=== PATIENT | male | born 1985 | race Caucasian/White ===

== ENCOUNTER 2023-10-21 15:05 | Outpatient (AMB) | payer OTHER, SELFPAY ==
[2023-10-21 15:06] VITALS: BP 122/76; PULSE 70; O2SAT 97; BMI 37.6
--- NOTE | 2023-10-21 15:06 | MHC.PC.OV ---
Vital Signs 10/21/23 15:06 Height 5 ft 9 in Weight 254 lb 8 oz BMI 37.6 BP 122/76 Blood Pressure Location Lt brachial Position Sitting Pulse 70 Pulse Source Pulse Oximeter Pulse Oximetry (%) 97 Oxygen Delivery Method Room Air Intake Visit Reasons: Medication Follow Up Incident Response Manager Required: No Flight Physician: Not Required per policy Accompanied by: Self / Same As Patient Allergies amoxicillin [AMOXICILLIN] Allergy (Unknown, Verified 10/21/23 15:36) HIVES azithromycin Allergy (Unknown, Verified 10/21/23 15:36) hives penicillin V Allergy (Unknown, Verified 10/21/23 15:36) hives Medication List - Last Reconciled 10/21/23 by Angelito Bustillo PA-C lorazepam 0.5 mg PO DAILY 30 days trazodone 100 mg PO DAILY 30 days triamcinolone acetonide 0.1% 1 appl topical BID 15 days Tobacco use date assessed: 10/21/23 Dental Screening Dental Screen Date: 10/21/23 Did you have a dental visit in the last 12 months?: Yes Did you have a dental problem in the last 6 months where you did not have access to dental care?: No Was dental information given to patient?: Patient has dentist HPI Medication Follow Up HPI Details Patient is a 38-year-old male here today for a follow-up visit. Patient has a past medical history significant for generalized anxiety disorder, obesity and insomnia. .. Generalized anxiety disorder: He is now speaking with his mental health therapist on a regular basis. He has stopped using SSRI therapy as it was not as effective. He has drastically reduced his alcohol intake and has really helped him with his sleep and anxiety. He is using trazodone 50-100 mg at night with good effect. He has been reduced his benzodiazepine frequency of use to only as p.r.n.. He reports he has not had a panic attack and nearly 3 months. He does inform me he has a 2[address] on the [address] [facility] Surgical History No pertinent past surgical history Family History Father No problems noted. Mother Mental health disorder Sister Substance use disorder Mental health disorder Maternal Grandmother Mental health disorder Maternal Grandfather Mental health disorder Social History Housing: House Alcohol intake: current Alcohol intake frequency: a few times a week Patient Tobacco Use Status: Former Tobacco user Quit Date: 15 years ago e-Cigarette/Vaping Use: Never Used service: No Current occupational status: employed Current occupation: [employer] Cognitive needs: No Hearing needs: No Vision needs: No Questionnaire PHQ-9 Over the last 2 weeks, how often have you been bothered by any of the following problems? 1. Little interest or pleasure in doing things: not at all 2. Feeling down, depressed, or hopeless: not at all 3. Trouble falling or staying asleep, or sleeping too much: not at all 4. Feeling tired or having little energy: not at all 5. Poor appetite or overeating: not at all 6. Feeling bad about yourself - or that you are a failure or have let yourself or your family down: not at all 7. Trouble concentrating on things, such as reading the newspaper or watching television: not at all 8. Moving or speaking so slowly that other people could have noticed. Or the opposite - being so fidgety or restless that you have been moving around a lot more than usual: not at all 9. Thoughts that you would be better off or of hurting yourself in some way: not at all Total score: 0 Depression Screening Interpretation: Negative Depression Screening Done: Yes 59820 - PHQ-9 Billing: Yes Source: Developed by Drs. Ahmet Bañuelos, Parvin Poe, Burak Lizarraga and colleagues, with an educational ugo from [employer]. Thrive Questionnaire Date Thrive assessed: 10/21/23 I am a: Patient What is your living situation today?: I have a steady place to live Within the past 12 months, did the food you bought not last and you didn't have the money to get more?: Never true Within the past 12 months, did you worry whether your food would run out before you got money to buy more?: Never true Do you have trouble paying for medicines?: No Do you have trouble getting transportation to medical appointments?: No Do you have trouble paying your heating and electricity bill?: No Do you have trouble taking care of your child, family member or friend?: No Do you have trouble with day-to-day activities such as bathing, preparing meals, shopping, managing finances, etc.?: No Are you currently unemployed and looking for a job?: No Are you interested in more education?: No Please select the resources that you would like help with: None AUDIT C Alcohol Use Questionnaire (AUDIT-C) 1. How often do you have a drink containing alcohol?: 2-3 times a week 2. How many drinks containing alcohol do you have on a typical day when you are drinking?: 3 or 4 3. How often do you have six or more drinks on one occasion?: Less than monthly Total Score: 5 ANGI-7 AMB Questionnaire ANGI-7 Date ANGI - 7 assessed: 10/21/23 Feeling nervous, anxious, or on edge: 0 = Not at all Not being able to stop or control worryin = Not at all Worrying too much about different things: 0 = Not at all Trouble relaxin = Not at all Being so restless that it is hard to sit still: 0 = Not at all Becoming easily annoyed or irritable: 0 = Not at all Feeling afraid as if something awful might happen: 0 = Not at all Total ANGI-7 score (0-4 normal; 5-9 mild; 10-14 moderate; 15-21 severe): 0 Source: Developed by Drs. Ahmet Bañuelos, Parvin Poe, Burak Lizarraga and colleagues, with an educational ugo from [employer]. ANGI-7 Assessment Billing ANGI-7 Assessment Tool: ANGI-7 Assessment 81627 Review of Systems Const Denies headache(s) Eyes Denies loss of vision ENT Denies vertigo, Denies dizziness, Denies headache(s) and Denies sore throat Card Denies chest pain, Denies leg edema and Denies lightheadedness Resp Denies cough, Denies hemoptysis and Denies wheezing GI Denies abdominal pain, Denies melena, Denies constipation, Denies diarrhea and Denies vomiting Denies dysuria, Denies urinary frequency and Denies urinary urgency Musc Denies arthralgias, Denies joint swelling, Denies numbness and Denies tingling Neuro Denies Abnormal speech present, Denies behavioral changes, Denies vertigo, Denies dizziness, Denies headache(s), Denies loss of vision, Denies memory loss, Denies numbness and Denies tingling Psych Reports anxiety, Denies behavioral changes, Reports depression, Denies memory loss and Reports panic attacks Ronnie/Lymph Denies easy bleeding and Denies easy bruising Aller/Immun Denies wheezing Physical exam (Primary Care) Vital Signs: Last Vital Signs Pulse 70 10/21/23 15:06 BP 122/76 10/21/23 15:06 Pulse Ox 97 10/21/23 15:06 Oxygen Delivery Method Room Air 10/21/23 15:06 BMI result Body Mass Index 37.6 BMI Assessment/Plan discussion: High Tobacco/Smoking Status: Tobacco use Status Tobacco use date assessed 10/21/23 10/21/23 15:08 Patient Tobacco Use Status Former Tobacco user 10/21/23 15:08 e-Cigarette/Vaping Use Never Used 10/21/23 15:08 PHQ-9: PHQ-9 Score PHQ-9: Total score 0 10/21/23 15:40 Depression Screening Interpretation: Negative Thrive Assessment: Date of Thrive Assessment Date Thrive assessed 10/21/23 10/21/23 15:08 Const Other: Obese General: no acute distress, alert and awake Nutritional Appearance: well nourished Orientation/consciousness: oriented to person, oriented to place and oriented to time HENMT Ears: TM's normal bilaterally General nose exam: Normal nasal mucous membranes and turbinates present Eyes Conjunctivae: conjunctivae normal Sclerae: sclerae normal Pupils: Equal, round and reactive pupils present Neck Neck: Yes no lymphadenopathy and Yes no JVD Thyroid: Thyroid normal Carotids: no bruits Resp Effort & Inspection: normal respiratory effort and not tachypneic Auscultation: no crackles, no rales, no rhonchi and no wheezes Cardio Rate: regular rate Rhythm: regular rhythm Heart sounds: no murmurs and normal S1 and S2 GI Palpation (GI): Soft to palpation, nontender, no hepatomegaly and no splenomegaly Auscultation: normal bowel sounds Skin General skin exam: no rashes or lesions noted and dry skin Neuro General: oriented to person, oriented to place and oriented to time Cranial nerves: Yes Equal, round and reactive pupils present Speech: No Abnormal speech present Gait exam (Neuro): Normal gait present Motor exam (neuro): no tremor noted Extrem Right upper extremity: full ROM Left upper extremity: full ROM Right lower extremity: full ROM; no edema Left lower extremity: full ROM; no edema Psych Mental Status: mental status grossly normal Speech and movement: Normal speech and movement present Affect: normal affect Attitude: cooperative Thought process: Normal thought process present Assessment and Plan Assessment & Plan (1) Insomnia: Code(s): G47.00 - Insomnia, unspecified Qualifiers: Insomnia type: primary Qualified Code(s): F51.01 - Primary insomnia Plan: Patient reports he has made some lifestyle changes and has stopped drinking alcohol reports his sleeping has been bit better. Does use trazodone 50-100 mg at night with decent affect. (2) ANGI (generalized anxiety disorder): Code(s): F41.1 - Generalized anxiety disorder Plan: Patient has an existing condition of generalized anxiety disorder which has been a chronic issue. He is speaking with a mental health therapist on a regular basis now/. He has discontinued SSRI therapy. Continues with the use of lorazepam on a p.r.n. basis for panic attacks. (3) Obese: Code(s): E66.9 - Obesity, unspecified Qualifiers: Body mass index: BMI 36.0-36.9 Obesity classification: adult class 2 (BMI 35 - 39.9) Obesity type: due to excess calories Serious obesity comorbidity presence: without serious comorbidity Qualified Code(s): E66.09 - Other obesity due to excess calories; Z68.36 - Body mass index [BMI] 36.0-36.9, adult Plan: Patient does understand his BMI is over 35 and will work on being more physically active and adapting to better eating habits to reduce his weight (4) Screening for diabetes mellitus (DM): Code(s): Z13.1 - Encounter for screening for diabetes mellitus Orders: Orders Comprehensive Vansant. Panel Fast 10/21/23 Z13.1 - Encounter for screening for diabetes mellitus Medications: New trazodone 100 mg (2 x 50 mg) PO BEDTIME 30 days 60 tabs 3RF F51.01 - Primary insomnia Changed From lorazepam 0.5 mg PO DAILY 30 days 30 tabs 3RF anxiety F41.1 - Generalized anxiety disorder To lorazepam 0.5 mg PO DAILY 14 days 14 tabs 1RF anxiety F41.1 - Generalized anxiety disorder Discontinued trazodone Discontinued Reason: Doctor's Order 100 mg PO DAILY 30 days 30 tabs 3RF G47.00 - Insomnia, unspecified Coding Level of Care Code Est Pt Level 4 (73850) Diagnoses Primary insomnia F51.01 Insomnia type: primary ANGI (generalized anxiety disorder) F41.1 Class 2 obesity due to excess calories without serious comorbidity with body mass index (BMI) of 36.0 to 36.9 in adult E66.09; Z68.36 Body mass index: BMI 36.0-36.9 Obesity classification: adult class 2 (BMI 35 - 39.9) Obesity type: due to excess calories Serious obesity comorbidity presence: without serious comorbidity Screening for diabetes mellitus (DM) Z13.1 Additional Codes ANGI-7 Assessment Billing - ANGI-7 Assessment Tool: ANGI-7 Assessment 01652 ([id number])
== END 2023-10-21 15:54 | disposition home or self-care (01) ==
PROVIDERS: PCP Physician Assistant; Visit Provider Physician Assistant
DX: F51.01 Primary insomnia (principal); F41.1 Generalized anxiety disorder; E66.09 Other obesity due to excess calories; Z68.36 Body mass index [BMI] 36.0-36.9, adult; Z13.1 Encounter for screening for diabetes mellitus
CPT/HCPCS: 99214

== ENCOUNTER 2024-10-05 13:38 | Outpatient (AMB) | payer BC, SELFPAY ==
[2024-10-05 13:40] VITALS: BP 110/76; PULSE 84; O2SAT 97; BMI 38.9
--- NOTE | 2024-10-05 13:40 | MHC.PC.OV ---
Vital Signs 10/05/24 13:40 Height 5 ft 9 in Weight 263 lb 6 oz BMI 38.9 BP 110/76 Blood Pressure Location Lt brachial Position Sitting Pulse 84 Pulse Source Pulse Oximeter Pulse Oximetry (%) 97 Oxygen Delivery Method Room Air Intake Visit Reasons: PE Intake Note: Patient is here today for a physical. [employer] Consultant Required: No Accompanied by: Self / Same As Patient Allergies amoxicillin [AMOXICILLIN] Allergy (Unknown, Verified 10/05/24 13:48) HIVES azithromycin Allergy (Unknown, Verified 10/05/24 13:48) hives penicillin V Allergy (Unknown, Verified 10/05/24 13:48) hives Medication List - Last Reconciled 10/05/24 by Angelito Bustillo PA-C citalopram (Celexa) 20 mg PO DAILY 90 days lorazepam 0.5 mg PO DAILY PRN 14 days trazodone 100 mg (2 x 50 mg) PO BEDTIME 30 days triamcinolone acetonide 0.1% 1 appl topical BID 15 days Tobacco use date assessed: 10/21/23 Dental Screening Dental Screen Date: 10/21/23 HPI PE HPI Details Patient is a 39-year-old male here today for routine annual physical. Patient has a past medical history significant for generalized anxiety disorder, obesity and insomnia. .. Generalized anxiety disorder: He is now speaking with his mental health therapist on a regular basis. He has stopped using SSRI therapy as it was not as effective. He has drastically reduced his alcohol intake and has really helped him with his sleep and anxiety. He is using trazodone 50-100 mg at night with good effect. He has been reduced his benzodiazepine frequency of use to only as p.r.n.. He reports he has not had a panic attack in quite some time .. Obstructive sleep apnea: Uses CPAP machine nightly basis with decent affect. He is interested in trying a weight loss injectable medication to help him lose weight in order to control his obstructive sleep apnea. .. Class 2 obesity: Has unfortunately gained weight since last office visit. He does understand his BMI is over 35 and will work on being more physically active and adapting to better eating habits to reduce his weight. He mentions he is interested in seeing a urologist for vasectomy. Vaccines: Up-to-date with COVID vaccine, tetanus vaccine, considering flu vaccine [facility] Surgical History No pertinent past surgical history Family History Father No problems noted. Mother Mental health disorder Sister Substance use disorder Mental health disorder Maternal Grandmother Mental health disorder Maternal Grandfather Mental health disorder Social History (Updated 10/05/24 @ 13:52 by Angelito Bustillo PA-C) Housing: House Alcohol intake: current Alcohol intake frequency: a few times a week Patient Tobacco Use Status: Former Tobacco user e-Cigarette/Vaping Use: Never Used service: No Current occupational status: employed Current occupation: [employer] Cognitive needs: No Hearing needs: No Vision needs: No Questionnaire PHQ-9 Over the last 2 weeks, how often have you been bothered by any of the following problems? 1. Little interest or pleasure in doing things: not at all 2. Feeling down, depressed, or hopeless: not at all 3. Trouble falling or staying asleep, or sleeping too much: not at all 4. Feeling tired or having little energy: not at all 5. Poor appetite or overeating: not at all 6. Feeling bad about yourself - or that you are a failure or have let yourself or your family down: not at all 7. Trouble concentrating on things, such as reading the newspaper or watching television: not at all 8. Moving or speaking so slowly that other people could have noticed. Or the opposite - being so fidgety or restless that you have been moving around a lot more than usual: not at all 9. Thoughts that you would be better off or of hurting yourself in some way: not at all Total score: 0 Depression Screening Interpretation: Negative Depression Screening Done: Yes 47788 - PHQ-9 Billing: Yes Source: Developed by Drs. Ahmet Bañuelos, Parvin Poe, Burak Lizarraga and colleagues, with an educational ugo from [employer]. Thrive Questionnaire Date Thrive assessed: 10/21/23 ANGI-7 AMB Questionnaire ANGI-7 Date ANGI - 7 assessed: 10/21/23 Source: Developed by Drs. Ahmet Bañuelos, Burak Barreto and colleagues, with an educational ugo from [employer]. Review of Systems Const Denies body aches, Denies chills, Denies excessive sweating, Denies fatigue, Denies fever(s) and Denies headache(s) Eyes Denies blurry vision ENT Denies dysphagia, Denies vertigo, Denies dizziness, Denies headache(s), Denies hearing loss and Denies tinnitus Card Denies chest pain, Denies chest pain with activity, Denies syncope, Denies irregular heart rhythm and Denies dyspnea Resp Denies chest congestion, Denies cough, Denies hemoptysis, Denies dyspnea and Denies wheezing GI Denies abdominal pain, Denies melena, Denies hematochezia, Denies coffee ground emesis, Denies dysphagia, Denies diarrhea, Denies nausea and Denies vomiting Denies difficulty urinating, Denies dysuria, Denies urinary frequency, Denies urinary hesitancy and Denies urinary urgency Musc Denies arthralgias, Denies limited range of motion, Denies muscle cramps and Denies muscle weakness Skin/Breast Denies rash and Denies skin ulcer Neuro Denies Abnormal speech present, Denies confusion, Denies vertigo, Denies dizziness, Denies syncope, Denies headache(s), Denies memory loss and Denies seizure-like activity Psych Denies anxiety, Denies confusion, Denies depression, Denies memory loss, Denies panic attacks and Denies paranoia Endo Denies excessive sweating, Denies fatigue, Denies flushing, Denies polydipsia and Denies polyuria Aller/Immun Denies wheezing Physical exam (Primary Care) Vital Signs: Last Vital Signs Pulse 84 10/05/24 13:40 BP 110/76 10/05/24 13:40 Pulse Ox 97 10/05/24 13:40 Oxygen Delivery Method Room Air 10/05/24 13:40 BMI result Body Mass Index 38.9 BMI Assessment/Plan discussion: High BMI High, discussed plan: lifestyle, weight reduction, dietary and physical activity Tobacco/Smoking Status: Tobacco use Status Tobacco use date assessed 10/21/23 10/05/24 13:45 Patient Tobacco Use Status Former Tobacco user 10/05/24 13:45 e-Cigarette/Vaping Use Never Used 10/05/24 13:45 PHQ-9: PHQ-9 Score PHQ-9: Total score 0 10/05/24 13:45 Depression Screening Interpretation: Negative Thrive Assessment: Date of Thrive Assessment Date Thrive assessed 10/21/23 10/05/24 13:45 Const Other: Obese General: cooperative, comfortable, no acute distress, alert and awake; No confusion Orientation/consciousness: oriented to person, oriented to place, patient oriented x3 and No confusion HENMT Other: ENLARGED TONSILS, 4+ 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 Head: Yes normocephalic Ears: external ears normal and TM's normal bilaterally Face and sinus: No sinus tenderness Mouth: Normal oral and palatal mucosa present and tongue normal Teeth and gingiva: dentition normal and gingiva normal Throat: Yes posterior oropharynx normal, Yes tonsils normal and Yes uvula midline Eyes Conjunctivae: conjunctivae normal Sclerae: sclerae normal Pupils: Equal, round and reactive pupils present EOM: EOMs intact bilaterally Direct Ophthalmoscopy: No no photophobia Neck Neck: Yes no lymphadenopathy, No tender and Yes no JVD Thyroid: Thyroid normal Carotids: no bruits Chest Chest palpation & inspection: no tenderness Resp Effort & Inspection: normal respiratory effort, no audible wheezes, not labored and no stridor Auscultation: no crackles, no rales, no rhonchi and no wheezes Cardio Jugular venous distension: no JVD Rate: regular rate, not bradycardic and not tachycardic Rhythm: regular rhythm Bruits: no carotid bruits Peripheral pulses: Peripheral pulses 2+ throughout GI Inspection: Yes normal to inspection, No abdominal wall ecchymosis and No visible herniation Palpation (GI): Soft to palpation, nontender, no guarding, not rigid and No hepatosplenomegaly present Auscultation: normoactive bowel sounds General: Yes no CVA tenderness Back/Spine/Pelvis Back: no CVA tenderness and No back tenderness Cervical Spine: cervical ROM normal Thoracic/Lumbar Spine: thoracic and lumbar spine normal to inspection, straight leg raise negative bilaterally, No thoraco-lumbar ROM limited and No lumbar spinal tenderness Skin Lesions: no lesions Rashes: no rashes Wounds: no wounds Neuro General: oriented to person, oriented to place, patient oriented x3, CN's II-XI intact bilaterally and No confusion Cranial nerves: Yes Equal, round and reactive pupils present and Yes Normal accommodation reflex present Cognition (Neuro): normal cognition Speech: No Abnormal speech present Gait exam (Neuro): Normal gait present Motor exam (neuro): 5/5 motor strength present throughout Extrem Right upper extremity: full ROM; no cyanosis Left upper extremity: full ROM; no cyanosis Right lower extremity: no edema Left lower extremity: no edema Psych Appearance: grossly normal Mental Status: mental status grossly normal Affect: normal affect Attitude: cooperative Thought process: Normal thought process present Office Procedures Flu Questionnaire Does the patient have a severe egg allergy?: No Does the patient have severe life threatening allergies?: No Does the patient have a fever or illness today?: No Has the patient ever had Guillain-[place] Syndrome?: No Has the patient ever had any past reaction to a flu shot?: No Immunizations Fluarix Triv 2214-2318 (PF) 45 mcg (15 mcg x 3)/0.5 mL IM syringe Performing Provider: Angelito Bustillo PA-C [facility] Administered by: COLIN Platt on 10/05/24 13:46 Dose Route Admin Location Dispensed Lot Number Expiration Date [facility] [employer] 0.5 mL IM Right Deltoid 0.5 mL [id number] 04/11/25 16225-231-22 Pounce VIS Given Date VIS Provided VIS Publication Date 10/05/24 Single Vaccine 21 Eligibility Eligibility Date Funding Source Not [facility] Eligible 10/05/24 Private Coding Level of Care Code Est Pt Prev Care 18-39y(47299) Diagnoses Annual physical exam Z00.00 ANGI (generalized anxiety disorder) F41.1 Class 2 obesity E66.812 Encounter for vasectomy counseling Z30.09 NUVIA (obstructive sleep apnea) G47.33 Enlarged tonsils and adenoids J35.3 Additional Codes PHQ-9 - 33295 - PHQ-9 Billing: Yes ([id number]) Assessment & Plan Assessment & Plan (1) Annual physical exam: Code(s): Z00.00 - Encounter for general adult medical examination without abnormal findings Category: Medical Plan: As per HPI (2) ANGI (generalized anxiety disorder): Code(s): F41.1 - Generalized anxiety disorder Category: Medical Plan: Patient reports his anxiety is very well controlled with current dose of Celexa and p.r.n. use of his lorazepam 0.5 mg. He usually uses lorazepam at night to help him sleep though has not had any panic attacks in quite some time. He now is working in a different job to which he enjoys as well. (3) Class 2 obesity: Code(s): E66.812 - Obesity, class 2 Category: Medical Plan: Patient does understand his BMI is over 35 and will work on being more physically active and adapting to better eating habits to reduce his weight. Even with physical activity he has not been able to lose much weight. He is interested in starting a GLP 1 to help him lose weight and perhaps control his obstructive sleep apnea though will give some more thought to this (4) Encounter for vasectomy counseling: Code(s): Z30.09 - Encounter for other general counseling and advice on contraception Category: Medical Plan: Patient has had 2 children. He reports his had traumatic experience having their 2nd child. He is interested in having an vasectomy. (5) NUVIA (obstructive sleep apnea): Code(s): G47.33 - Obstructive sleep apnea (adult) (pediatric) Category: Medical Plan: Patient continues to use CPAP on a nightly basis. Fortunately has not been able to lose much weight. He wonders if his enlarged tonsils are the reason for his obstructive sleep apnea. He is interested in seeing ENT surgeon for evaluation. (6) Enlarged tonsils and adenoids: Code(s): J35.3 - Hypertrophy of tonsils with hypertrophy of adenoids Category: Medical Plan: As above Orders: Orders Influenza [id number] Immunization Today Z23 - Encounter for immunization Lipid Panel Today E66.812 - Obesity, class 2 Complete Blood Count no Diff Today Z13.1 - Encounter for screening for diabetes mellitus Referrals Urology Referral Z30.09 - Encounter for other general counseling and advice on contraception Ear/Nose/Throat Referral J35.3 - Hypertrophy of tonsils with hypertrophy of adenoids
--- OUTSIDE RECORDS SUMMARY | 2024-10-05 13:40 | XMS_ITS | Data Portability ---
Author Organization [facility] Address [address] [place] [address] Assessment No assessment recorded. Plan of Treatment Reminders Order Date Submit Date Provider Last Modified By Organization Details Last Modified Time Details Appointments None recorded. Lab rapid strep group A, throat 2022 023 [email or web address] _gracie sandoval, [address] [place] [address], [phone], 10:03:30 Referral None recorded. Procedures None recorded. Surgeries None recorded. Imaging None recorded. Medication Orders clindamycin HCl 300 mg capsule 2022 023 [email or web address] [id number], [address] [place], [address], 10:05:59 Patient TargetsNo targets recorded. Patient Instructions Encounter Date Encounter Id Patient Instructions Last Modified By Organization Details Last Modified Time 02/17/2023 [id number] strep throat: care instructions eal Not available 02/17/2023 10:03:45 Reason for Referral None Reported. Results Created Date Observation Date Name Description Value Unit Range Abnormal Flag Note LastModifiedBy Organization Detail LastModifiedTime 02/18/2002/17/2023 rapid strep group A, throa t Unknown Analyte Normal = Negati ve Not Available _bertha [address], [address], 02/17/2023 09:33:50 02/18/2002/17/2023 rapid strep group A, throa t Unknown Analyte positi ve Not Available [facility] [address] [facility], [place], [address], 02/17/2023 09:33:50 Result Notes None recorded. Problems Name Problem SNOMED Code Status Onset Date Resolution Date Notes Provider Name and Address Organization Details Recorded Time Insomnia 512990493 Active 023 IRIS COUVERTADDI null, PA - [facility] 3 09:33:04 Anxiety 76654758 Active 023 IRIS COUVERTIER null, PA - [facility] 3 09:33:11 Problem Notes None recorded. Medical Equipment None Reported. Allergies Allergen ID Allergen Name Allergen Category Reaction Reaction Severity Criticality Documentation Date Start Date Code Code System Note Provider Name and Address Organization Details Recorded Time 734187 Medicinal product containin g penicilli n and acting as antibacte rial agent (product) medicatio n Not available Not available Not available 02/17/2023 83979 05 SNOMED IRIS COUVERTIE R null, PA - [facility] 3 09:32:24 333181 amoxicill in medicatio n Not available Not available Not available 02/17/2023 723 RxNorm IRIS COUVERTIE R null, PA - [facility] 3 09:32:31 549246 azithromy [facility] medicatio n Not available Not available Not available 02/17/2023 01330 RxNorm IRIS COUVERTIE R null, PA - [facility] 3 09:40:34 Medications Name Sig Start Date Stop Date Status Note LastModified by Organization Details LastModified Time clindamycin HCl 300 mg capsule Take 1 capsule every 8 hours by oral route for 10 days. 023 active Not Available Not Available Not Avai lable Ativan active Not Available Not Availa ble Not Available trazodone active Not Available Not Susan ilable Not Available Vitals Date Recorded Body height Body mass index (BMI) Body weight Body temperature Respiratory rate Heart rate Oxygen saturation Oxygen saturation in Arterial blood by Pulse oximetry Systolic blood pressure Diastolic blood pressure Provider Name and Address Organization Details Last Updated DateTime 3 177.8 cm 35.9 kg/m2 823426. 09 g 97.8 [degF] 18 /min 99 /min 98 % 98 % 131 mm[Hg] 85 mm[Hg] SOM Monroe PA - [facility] 09:35:01 Social History Question Answer Notes LastModified by Organizat ion Details LastModified Time Tobacco Smoking Status Former Smoker SOM lemus [place] - [facility] 02/17/2023 09:33:39 What Is Your Level Of Alcohol Consumption? Occasional Information not available 02/17/2023 What Is Your Water Source? City Information not available 02/17/2023 What Is Your Heat Source? Other Information not available 02/17/2023 Have You Had Direct Contact, Or Contact During Intimacy, With Monkeypox Rash, Scabs, Or Body Fluids From A Person With Monkeypox? No Information not available 02/17/2023 Do You Use Any Illicit Or Recreational Drugs? No Information not available 02/17/2023 Have You Recently Traveled Abroad? No Information not available 02/17/2023 Sex: Unknown Functional Status None recorded. Mental Status None recorded. Family History Relationship Description Onset Age of this Age Resolved Age Notes LastModified by Organization Details LastModified Time Father No current problems or disability Not available 09:33:21 Mother No current problems or disability Not available 09:33:21 Medical History No medical history recorded. Past Encounters Encounter ID Performer Location Encounter Start Date Encounter Closed Date Diagnosis/Indication Diagnosis SNOMED-CT Code Diagnosis ICD10 Code [id number] [facility] [address] [place] [address] 07/05/2020 10:05:18 07/05/2020 11:32:07 [id number] Lilian Ansari [facility] [address] [place] [address] 02/17/2023 08:14:40 02/17/2023 10:07:13 Streptococcal sore throat 44832455 J02.0 Health Concerns Section Related Observation LastModified by Organization Detai ls LastModified Time None Recorded Concern Status LastModified by Organization Details LastModified Time None Recorded Advance Directives Directive None Recorded Payers Encounter Date Sequence Insurance Name Policy Number Policy Ramon Covered Member ID Ramon Member ID Guarantor Name 07/05/2020 1 [facility] [place] [id number] Guille Young [id number] Guille Young 02/17/2023 1 [facility] [id number] Guille Young [id number] Guille Young Notes Date Note Type Note Provider Name and Address Organization Details Recorded Time 02/17/2023 text/html Sore throatRepor alejandra bypatient.Location:[facility] Severity:moderate Quality:sharp Associated Symptoms:no cough; no sputum production; no shortness of breath; no wheezing; no sinus pain; no vomiting; no nausea; No hoarseness;sore throat;fever Modifying Factors:exposed to Strep household * Lilian Ansari MD [address] [place], [place] [address], [address], [place] - [facility] 02/17/2023 10:06:40
== END 2024-10-05 14:12 | disposition home or self-care (01) ==
PROVIDERS: PCP Physician Assistant; Visit Provider Physician Assistant
DX: Z00.00 Encounter for general adult medical examination without abnormal findings (principal); F41.1 Generalized anxiety disorder; E66.812 Obesity, class 2; Z68.38 Body mass index [BMI] 38.0-38.9, adult; Z30.09 Encounter for other general counseling and advice on contraception; G47.33 Obstructive sleep apnea (adult) (pediatric); J35.3 Hypertrophy of tonsils with hypertrophy of adenoids; Z23 Encounter for immunization

== ENCOUNTER → 2024-10-05 13:38 | Outpatient (BNVA) | payer BC, SELFPAY | PROVIDERS: PCP Physician Assistant; Visit Provider Physician Assistant | DX: Z00.00 Encounter for general adult medical examination without abnormal findings (principal); Z23 Encounter for immunization; F41.1 Generalized anxiety disorder; E66.812 Obesity, class 2; Z68.38 Body mass index [BMI] 38.0-38.9, adult; G47.33 Obstructive sleep apnea (adult) (pediatric); J35.3 Hypertrophy of tonsils with hypertrophy of adenoids; Z79.899 Other long term (current) drug therapy; Z99.89 Dependence on other enabling machines and devices | CPT/HCPCS: 90471; 90656; 96127 ==

== ENCOUNTER 2024-12-09 11:24 | Outpatient (AMB) | payer BC, SELFPAY ==
[2024-12-09 11:42] VITALS: BP 120/82; PULSE 82; TEMP 36.2; O2SAT 95; BMI 37.8
--- NOTE | 2024-12-09 11:42 | MHC.PC.OV ---
Vital Signs 12/09/24 11:42 Height 5 ft 9 in Weight 256 lb 2 oz BMI 37.8 BP 120/82 Blood Pressure Location Lt brachial Position Sitting Pulse 82 Pulse Source Pulse Oximeter Temp 97.1 F Temp Source Temporal Artery Scan Pulse Oximetry (%) 95 Oxygen Delivery Method Room Air Intake Visit Reasons: 6 week f/u Meds Cardiovascular Rn Required: No Accompanied by: Self / Same As Patient Allergies amoxicillin [AMOXICILLIN] Allergy (Unknown, Verified 12/09/24 12:01) HIVES azithromycin Allergy (Unknown, Verified 12/09/24 12:01) hives penicillin V Allergy (Unknown, Verified 12/09/24 12:01) hives Medication List - Last Reconciled 12/09/24 by Angelito Bustillo PA-C citalopram (Celexa) 20 mg PO DAILY 90 days lorazepam 0.5 mg PO DAILY PRN 14 days tirzepatide (weight loss) (Zepbound) 5 mg (0.5 mL) subcut QWEEK 4 weeks tirzepatide (weight loss) (Zepbound) 2.5 mg (0.5 mL) subcut QWEEK 4 weeks trazodone 100 mg (2 x 50 mg) PO BEDTIME 30 days triamcinolone acetonide 0.1% 1 appl topical BID 15 days Tobacco use date assessed: 12/09/24 Dental Screening Dental Screen Date: 12/09/24 Did you have a dental visit in the last 12 months?: Yes Did you have a dental problem in the last 6 months where you did not have access to dental care?: No Was dental information given to patient?: Patient has dentist HPI 6 week f/u Meds HPI Details Patient is a 39-year-old male here today for follow-up visit. Patient has a past medical history significant for generalized anxiety disorder, obesity and insomnia. .. Generalized anxiety disorder: He is now speaking with his mental health therapist on a regular basis. He has restarted his SSRI therapy He has drastically reduced his alcohol intake and has really helped him with his sleep and anxiety. He is using trazodone 50-100 mg at night with good effect. He has been reduced his benzodiazepine frequency of use to only as p.r.n.. He reports he has not had a panic attack in quite some time .. Obstructive sleep apnea: Uses CPAP machine nightly basis with decent affect. He is interested in trying a weight loss injectable medication to help him lose weight in order to control his obstructive sleep apnea. .. Class 2 obesity: He has been started on zepbound and has lost 10 lb since last office visit. Starting weight 263 lb . Today's weight at 256 lb, BMI at 37.8 He reports he has been more physically active as well in making dietary changes. [facility] Surgical History No pertinent past surgical history Family History Father No problems noted. Mother Mental health disorder Sister Substance use disorder Mental health disorder Maternal Grandmother Mental health disorder Maternal Grandfather Mental health disorder Social History Housing: House Alcohol intake: current Alcohol intake frequency: a few times a week Patient Tobacco Use Status: Former Tobacco user e-Cigarette/Vaping Use: Never Used service: No Current occupational status: employed Current occupation: [employer] Cognitive needs: No Hearing needs: No Vision needs: No Questionnaire PHQ-9 Over the last 2 weeks, how often have you been bothered by any of the following problems? 1. Little interest or pleasure in doing things: not at all 2. Feeling down, depressed, or hopeless: not at all 3. Trouble falling or staying asleep, or sleeping too much: not at all 4. Feeling tired or having little energy: not at all 5. Poor appetite or overeating: not at all 6. Feeling bad about yourself - or that you are a failure or have let yourself or your family down: not at all 7. Trouble concentrating on things, such as reading the newspaper or watching television: not at all 8. Moving or speaking so slowly that other people could have noticed. Or the opposite - being so fidgety or restless that you have been moving around a lot more than usual: not at all 9. Thoughts that you would be better off or of hurting yourself in some way: not at all Total score: 0 Depression Screening Interpretation: Negative Depression Screening Done: Yes 56949 - PHQ-9 Billing: Yes Source: Developed by Drs. Ahmet Bañuelos, Burak Barreto and colleagues, with an educational ugo from [employer]. Thrive Questionnaire Date Thrive assessed: 12/09/24 I am a: Patient What is your living situation today?: I have a steady place to live Within the past 12 months, did the food you bought not last and you didn't have the money to get more?: Never true Within the past 12 months, did you worry whether your food would run out before you got money to buy more?: Never true Do you have trouble paying for medicines?: No Do you have trouble getting transportation to medical appointments?: No Do you have trouble paying your heating and electricity bill?: No Do you have trouble taking care of your child, family member or friend?: No Do you have trouble with day-to-day activities such as bathing, preparing meals, shopping, managing finances, etc.?: No Are you currently unemployed and looking for a job?: No Are you interested in more education?: No Please select the resources that you would like help with: None Currently or been in a relationship where the following occur: No concerns reported THRIVE Score: 0 AUDIT C Alcohol Use Questionnaire (AUDIT-C) 1. How often do you have a drink containing alcohol?: 2-3 times a week 2. How many drinks containing alcohol do you have on a typical day when you are drinking?: 3 or 4 3. How often do you have six or more drinks on one occasion?: Less than monthly Total Score: 5 ANGI-7 AMB Questionnaire ANGI-7 Date ANGI - 7 assessed: 12/09/24 Feeling nervous, anxious, or on edge: 1 = Several days Not being able to stop or control worryin = Several days Worrying too much about different things: 1 = Several days Trouble relaxin = Not at all Being so restless that it is hard to sit still: 1 = Several days Becoming easily annoyed or irritable: 1 = Several days Feeling afraid as if something awful might happen: 0 = Not at all Total ANGI-7 score (0-4 normal; 5-9 mild; 10-14 moderate; 15-21 severe): 5 Source: Developed by Parvin Candelaria Kurt Kroenke and colleagues, with an educational ugo from [employer]. ANGI-7 Assessment Billing ANGI-7 Assessment Tool: ANGI-7 Assessment 48205 Review of Systems Const Denies headache(s) Eyes Denies loss of vision ENT Denies vertigo, Denies dizziness, Denies headache(s) and Denies sore throat Card Denies chest pain, Denies leg edema and Denies lightheadedness Resp Denies cough, Denies hemoptysis and Denies wheezing GI Denies abdominal pain, Denies melena, Denies constipation, Denies diarrhea and Denies vomiting Denies dysuria, Denies urinary frequency and Denies urinary urgency Musc Denies arthralgias, Denies joint swelling, Denies numbness and Denies tingling Neuro Denies Abnormal speech present, Denies behavioral changes, Denies vertigo, Denies dizziness, Denies headache(s), Denies loss of vision, Denies memory loss, Denies numbness and Denies tingling Psych Denies anxiety, Denies behavioral changes, Denies depression, Denies memory loss and Denies panic attacks Ronnie/Lymph Denies easy bleeding and Denies easy bruising Aller/Immun Denies wheezing Physical exam (Primary Care) Vital Signs: Last Vital Signs Temp 97.1 F 12/09/24 11:42 Pulse 82 12/09/24 11:42 BP 120/82 12/09/24 11:42 Pulse Ox 95 12/09/24 11:42 Oxygen Delivery Method Room Air 12/09/24 11:42 BMI result Body Mass Index 37.8 Tobacco/Smoking Status: Tobacco use Status Tobacco use date assessed 12/09/24 12/09/24 11:48 Patient Tobacco Use Status Former Tobacco user 12/09/24 11:48 e-Cigarette/Vaping Use Never Used 12/09/24 11:48 PHQ-9: PHQ-9 Score PHQ-9: Total score 0 12/09/24 12:02 Depression Screening Interpretation: Negative Thrive Assessment: Date of Thrive Assessment Date Thrive assessed 12/09/24 12/09/24 11:48 Currently or been in a relationship where the following occur: No concerns reported Const General: healthy appearing, no acute distress, alert and awake Nutritional Appearance: well nourished Orientation/consciousness: oriented to person, oriented to place and oriented to time HENMT Ears: TM's normal bilaterally General nose exam: Normal nasal mucous membranes and turbinates present Eyes Conjunctivae: conjunctivae normal Sclerae: sclerae normal Pupils: Equal, round and reactive pupils present Neck Neck: Yes no lymphadenopathy and Yes no JVD Thyroid: Thyroid normal Carotids: no bruits Resp Effort & Inspection: normal respiratory effort and not tachypneic Auscultation: no crackles, no rales, no rhonchi and no wheezes Cardio Rate: regular rate Rhythm: regular rhythm Heart sounds: no murmurs and normal S1 and S2 GI Palpation (GI): Soft to palpation, nontender, no hepatomegaly and no splenomegaly Auscultation: normal bowel sounds Skin General skin exam: no rashes or lesions noted and dry skin Neuro General: oriented to person, oriented to place and oriented to time Cranial nerves: Yes Equal, round and reactive pupils present Speech: No Abnormal speech present Gait exam (Neuro): Normal gait present Motor exam (neuro): no tremor noted Extrem Right upper extremity: full ROM Left upper extremity: full ROM Right lower extremity: full ROM; no edema Left lower extremity: full ROM; no edema Psych Mental Status: mental status grossly normal Speech and movement: Normal speech and movement present Affect: normal affect Attitude: cooperative Thought process: Normal thought process present Coding Level of Care Code Est Pt Level 4 (47817) Diagnoses ANGI (generalized anxiety disorder) F41.1 Class 2 obesity E66.812 NUVIA (obstructive sleep apnea) G47.33 Additional Codes ANGI-7 Assessment Billing - ANGI-7 Assessment Tool: ANGI-7 Assessment 06180 ([id number]) PHQ-9 - 43684 - PHQ-9 Billing: Yes ([id number]) Assessment & Plan Assessment & Plan (1) ANGI (generalized anxiety disorder): Code(s): F41.1 - Generalized anxiety disorder Category: Medical Plan: Patient's ANGI-7 score positive for anxiety which has been existing condition for him. Patient reports his anxiety is very well controlled with current dose of Celexa and p.r.n. use of his lorazepam 0.5 mg. He usually uses lorazepam at night to help him sleep though has not had any panic attacks in quite some time. He now is working in a different job to which he enjoys as well. (2) Class 2 obesity: Code(s): E66.812 - Obesity, class 2 Category: Medical Plan: Since starting Cirilo P1 he has been able to lose 10 lb, he also reports better eating habits and been more physically active. He has no particular intolerable side effects to GLP 1 dose and will like to continue up titrating. (3) NUVIA (obstructive sleep apnea): Code(s): G47.33 - Obstructive sleep apnea (adult) (pediatric) Category: Medical Plan: Patient continues to use CPAP on a nightly basis. Fortunately has not been able to lose much weight. He wonders if his enlarged tonsils are the reason for his obstructive sleep apnea. He is interested in seeing ENT surgeon for evaluation. Orders: Orders Comprehensive [place]. Panel Fast Today Z13.1 - Encounter for screening for diabetes mellitus
--- OUTSIDE RECORDS SUMMARY | 2024-12-09 13:49 | XMS_ITS | Data Portability ---
Author Organization [facility] Address [address] [place] [address] Assessment No assessment recorded. Plan of Treatment Reminders Order Date Submit Date Provider Last Modified By Organization Details Last Modified Time Details Appointments None recorded. Lab rapid strep group A, throat 2022 023 [email or web address] _gracie sandoval, [address] [place] [address], [id number], 10:03:30 Referral None recorded. Procedures None recorded. Surgeries None recorded. Imaging None recorded. Medication Orders clindamycin HCl 300 mg capsule 2022 023 [email or web address] [id number], [address] [place], [address], 10:05:59 Patient TargetsNo targets recorded. Patient Instructions Encounter Date Encounter Id Patient Instructions Last Modified By Organization Details Last Modified Time 02/17/2023 [id number] strep throat: care instructions eal Not available 02/17/2023 10:03:45 Reason for Referral None Reported. Results Created Date Observation Date Name Description Value Unit Range Abnormal Flag Note LastModifiedBy Organization Detail LastModifiedTime 02/18/2002/17/2023 rapid strep group A, throa t Unknown Analyte Normal = Negati ve Not Available _bertha ryan[address], [address], 02/17/2023 09:33:50 02/18/2002/17/2023 rapid strep group A, throa t Unknown Analyte positi ve Not Available [facility] [address] [facility], [place], [address], 02/17/2023 09:33:50 Result Notes None recorded. Problems Name Problem SNOMED Code Status Onset Date Resolution Date Notes Provider Name and Address Organization Details Recorded Time Insomnia 671086979 Active 023 IRIS COUVERTADDI null, [place] - [facility] 3 09:33:04 Anxiety 94957877 Active 023 IRIS COUVERTIER null, [place] - [facility] 3 09:33:11 Problem Notes None recorded. Medical Equipment None Reported. Allergies Allergen ID Allergen Name Allergen Category Reaction Reaction Severity Criticality Documentation Date Start Date Code Code System Note Provider Name and Address Organization Details Recorded Time 446344 Product containin g penicilli n (product) medicatio n Not available Not available Not available 02/17/2023 83203 8001 SNOMED IRIS COUVERTIE R null, [place] - [facility] 3 09:32:24 353864 amoxicill in medicatio n Not available Not available Not available 02/17/2023 723 RxNorm IRIS COUVERTIE R null, [place] - [facility] 3 09:32:31 151683 azithromy gilbert medicatio n Not available Not available Not available 02/17/2023 49588 RxNorm IRIS COUVERTIE R null, [place] - [...] Updated DateTime 3 177.8 cm 35.9 kg/m2 102657. 09 g 97.8 [degF] 18 /min 99 [...] Diagnosis/Indication Diagnosis SNOMED-CT Code Diagnosis ICD10 Code Diagnosis Note [id number] [address] [address] 07/05/2020 10:05:18 07/05/2020 11:32:07 [id number] Lilian Ansari MD [address] [address] [place] [address] 02/17/2023 08:14:40 02/17/2023 10:07:13 Streptococcal sore throat 97377423 J02.0 Please follow up with PCP or Urgent Care in 3-5 days if no improvemen t or if any new symptoms occur that are concerning .Call 911 or go to nearest ER if you develop any shortness of breath, chest pain, severe headache, dizziness, or other concerning symptoms Health Concerns Section Related Observation LastModified by Organization Detai ls LastModified Time None Recorded Concern Status LastModified by Organization Details LastModified Time None Recorded Advance Directives Directive None Recorded Payers Encounter Date Sequence Insurance Name Policy Number Policy Ramon Covered Member ID Ramon Member ID Guarantor Name 07/05/2020 1 [facility] [place] [id number] Guille Young [id number] Guille Young 02/17/2023 1 [facility] [id number] Guille Young [id number] Guille Young Notes Date Note Type Note Provider Name and Address Organization Details Recorded Time 02/17/2023 text/html Sore throatRepor alejandra bypatient.Location: hroat Severity:moderate Quality:sharp Associated Symptoms:no cough; no sputum production; no shortness of breath; no wheezing; no sinus pain; no vomiting; no nausea; No hoarseness;sore throat;fever Modifying Factors:exposed to Strep household * Lilian Ansari MD [address] [place], [address], [place] - [facility] 02/17/2023 10:06:40
--- OUTSIDE RECORDS SUMMARY | 2024-12-09 13:49 | XMS_ITS | Data Portability ---
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 Plan of Treatment Reminders Order Date Submit Date Provider Last Modified By Organization Details Last Modified Time Details Appointments None recorded. Lab None recorded. Referral nutritioni st/dietiti an referral - 33yo yo M with obesity and stress eating. wants to work on diet with fiance 2018 019 [email or web address] Not available 9 11:20:58 sleep study referral - 32yo M with snoring and daytime sleepiness . obese. epworth scale 9//Consult ation about a sleep-rela alejandra symptom with testing and management as warranted 2016 017 [facility], [address] [facility], [facility] [address], [place], [address], 8 05:01:13 Procedures None recorded. Surgeries None recorded. Imaging US, scrotum - 34yo M with firm mobile mass left scrotum x1 year. non-tender 2018 019 [facility] (Imaging), [address], [place]CE[place] Akbar, [address], 9 10:29:06 Medication Orders trazodone 50 mg tablet 2018 019 INTERFACE [id number], [address] [place], [address], 9 08:32:45 lorazepam 1 mg tablet 2018 019 INTERFACE [id number], [address] [facility] [place], [address], 9 08:32:45 trazodone 50 mg tablet 2018 019 INTERFACE [id number], [address] [place], [address], 9 16:10:31 hydroxyzin e HCl 25 mg tablet 2018 019 hwzorek [id number], [address] [place], [address], 9 08:19:42 citalopram 20 mg tablet 2018 019 [id number], [address] [place], [address], 9 08:00:01 Patient TargetsNo targets recorded. Patient Instructions Encounter Date Encounter Id Patient Instructions Last Modified By Organization Details Last Modified Time 10/02/2017 [id number] Well Visit, Ages 18 to 65: Care Instructions [email or web address] Not available 10/02/2017 14:12:34 After a discussi on of treatment options, which included consideration of best practices, patient preferences, and the patient? s individual lifestyle and treatment goals, as well as consideration and attempted mitigation of any barriers to meeting the patient? s goals, the following treatment plan and objectives were adopted: - personal health goals: weight loss. goal weight less than 220lb. exercise 3 days a week. be able to run 5 miles without walking. balanced diet. cut down on sweets and fatty foods - get off sleeping pills. work on sleep hygiene with your therapist - you will be called to schedule a sleep study - continue citalopram - consider seeing a fuller brush man - regular dental and eye exams - flu vaccine today - follow up in 3-4 months - physical in 1 year hwzorek Not available 10/02/2017 14:13:03 02/18/2018 [id number] After a discussi on of treatment options, which included consideration of best practices, patient preferences, and the patient? s individual lifestyle and treatment goals, as well as consideration and attempted mitigation of any barriers to meeting the patient? s goals, the following treatment plan and objectives were adopted: - restart with therapist - very occasional lorazepam. goal to not need this - get back to regular exercise - follow up with sleep med - have fasting labs done - wellness visit in September. call sooner if needed hwzorek Not available 02/18/2018 10:10:14 10/30/2018 [id number] After a discussi on of treatment options, which included consideration of best practices, patient preferences, and the patient? s individual lifestyle and treatment goals, as well as consideration and attempted mitigation of any barriers to meeting the patient? s goals, the following treatment plan and objectives were adopted: - regular exercise - balanced diet with veggies, lean protein, whole grains - try guided meditation kalyn - get back in with your therapist - restart citalopram - occasional lorazepam - try hydroxyzine as needed for anxiety. not to take with lorazepam. can also try 2 tabs for sleep. not to take with trazodone - schedule with fuller brush man - follow up at wellness visit in December hwzorek Not available 10/30/2018 20:13:25 New medication w as discussed with patient including risks, benefits ,possible and expected side effects. Patient understands and is willing to begin medication as prescribed. hwzorek Not available 10/30/2018 20:13:31 04/28/2019 [id number] Well Visit, Ages 18 to 65: Care Instructions zorek Not available 04/28/2019 11:49:44 After a discussi on of treatment options, which included consideration of best practices, patient preferences, and the patient? s individual lifestyle and treatment goals, as well as consideration and attempted mitigation of any barriers to meeting the patient? s goals, the following treatment plan and objectives were adopted: - personal health goals: weight loss. cook balanced meals at home - exercise 45 minutes most days of the week - balanced diet with lean protein, whole grains, veggies - 8 hours of sleep a night with CPAP. trazodone as needed - lots of water - sunscreen in the sun, regular skin/tick checks - regular dental and eye exams - follow up BP clinic in 1-2 weeks. have fasting labs - follow up in 6 months, anxiety/med - flu vaccine in the fall - wellness visit in 1 year stone Not available 04/28/2019 14:48:28 Reason for Referral 32yo M with snoring and dayt oniel sleepiness. obese. epworth scale 9//Consultation about a sleep-related symptom with testing and management as warranted Referring Physician: [facility], Encounter Date: 10/02/2017 Russian Teacher/dietitian Refer ral for Obesity 33yo yo M with obesity and stress eating. wants to work on diet with fihari Referring Physician: Avani Prieto [facility], Encounter Date: 10/30/2018 Results Created Date Observation Date Name Description Value Unit Range Abnormal Flag Note LastModifiedBy Organization Detail LastModifiedTime 11/28/19 18 11/25/2017 polys omnog gogo No observ ation record ed. [facility] [address] [place], [address], 11/28/2017 15:17:28 03/01/20 18 polys omnog gogo No observ ation record ed. [facility] [address] [place] [address], [address], 03/02/2018 17:21:01 Result Notes None recorded. Problems Name Problem SNOMED Code Status Onset Date Resolution Date Notes Provider Name and Address Organization Details Recorded Time Eczema 37917273 Active since teens Avani Prieto NP [address] [place], [place] [address] [place], [address], [facility] 5 10:31:30 Anxiety 08494939 Active treated since 2013, long history of panic attacks [place], [address], [facility] 5 10:49:48 Irritabl e bowel syndrome with diarrhea 706849493 Active 2015 Avani Prieto NP [address] [place], [address], [facility] 6 16:37:25 Obesity 018829260 Active 2015 Avani Prieto NP [address] [place], [address], [facility] 6 16:39:33 Sleep apnea 67090781 Active 2017 dx 11/2017 Avani Prieto NP [address] [place], [place] [address] [place], [address], [facility] 8 15:17:04 Obstruct timo sleep apnea syndrome 50306192 Completed 201702/18/2018 fit for CPAP 02/2018 Removal Reason: duplicate Avani Prieto NP [address] [place] [address] J[place], [place], [address], [facility] 8 10:03:06 Insomnia 597516233 Active 2017 Avani Prieto NP [address] [place], [place] [address], [place], [address], [facility] 8 10:03:33 Problem Notes None recorded. Procedures Surgical History Date Name Laterality Status Provider Name and Address Organization Details Recorded Time 7 [place] Sleepiness Scale completed Avani Prieto NP [address] [place] [address], [address], [facility] 10/02/2017 13:58:31 7 [place] Sleepiness Scale completed Avani Prieto NP [address] [place] [address], [address], [facility] 12/17/2016 12:10:15 6 [place] Sleepiness Scale completed Avani Prieto NP [address] [place] [address], [address], [facility] 03/26/2016 10:31:49 Imaging Results Imaging Date Name Status LastModified by [facility] Details LastModified Time 11/25/2017 polysomnogram completed [facility] [address] [place] [address], [address], 11/28/2017 15:17:28 03/01/2018 polysomnogram completed [facility] [address] [place], [address], 03/02/2018 17:21:01 Procedure Notes None recorded. Medical Equipment None Reported. Allergies Allergen ID Allergen Name Allergen Category Reaction Reaction Severity Criticality Documentation Date Start Date Code Code System Note Provider Name and Address Organization Details Recorded Time 773968 amoxicill in medicatio n rash Not available Not available 06/27/2015 723 [facility] 13:37:51 547354 erythromy gilbert medicatio n Not available Not available Not available 06/27/2015 4053 [facility] 13:37:51 362192 Product containin g penicilli n (product) medicatio n Not available Not available Not available 06/27/2015 47047 8001 [facility]ED [facility] 5 13:37:51 495555 egg extract food,medi cation Not available Not available Not available 06/27/2015 57870 15 [facility] 5 13:37:51 Medications Name Sig Start Date Stop Date Status Note LastModified by Organization Details LastModified Time trazodone hydrochlo ride 50 mg tabs 04/28 completed duplicat e Not Available Not Available Not Available lorazepam 1 mg tabs 10/30 completed Not Available Not Available Not Available quetiapin e 25 mg tablet TAKE 1-2 TABS BY MOUTH AT BEDTIME NEEDED FOR INSOMNIA 10/30 completed Not Available Not Available Not Available citalopra m 40 mg tablet TAKE 1 TABLET BY MOUTH EVERY MORNING 08/22 completed stopped with less stress Not Available Not Available Not Available trazodone 50 mg tablet TAKE 1 TO 2 TABLETS BY MOUTH EVERYDAY AT BEDTIME active Not Available Not Available No t Available clindamyc in HCl 150 mg capsule 03/26 completed Not Available Not Available Not Available triamcino lone acetonide 0.1 % topical cream APPLY TO AFFECTED AREA TWICE A DAY FOR 14 DAYS NEEDED FOR ECZEMA active Not Available Not Available No t Available citalopra m 20 mg tablet TAKE 1/2 TAB BY MOUTH DAILY FOR 6 DAYS, THEN TAKE A WHOLE TAB DAILY active Not Available Not Available No t Available dexametha sone 4 mg tablet 03/26 completed Not Available Not Available Not Available hydroxyzi ne HCl 25 mg tablet TAKE 1 TABLET BY MOUTH TWICE A DAY NEEDED active Not Available Not Available No t Available lorazepam 1 mg tablet TAKE 1 TABLET BY MOUTH EVERY DAY NEEDED 2018 active Not Available Not Available Not Avai lable fluticaso ne propionat e 50 mcg/actua tion nasal spray,rommel pension Inhale 1 spray every day by intranas al route for 30 days. 07/31 completed Not Available Not Available Not Available oxycodone 5 mg tablet 03/26 completed Not Available Not Available Not Available chlorhexi dine gluconate 0.12 % mouthwash 08/22 completed Not Available Not Available Not Available Vitals Date Recorded Body height Body mass index (BMI) Body weight Heart rate Systolic blood pressure Diastolic blood pressure Provider Name and Address Organization Details Last Updated DateTime 7 173.355 cm 35.6 kg/m2 436308. 8 g 96 /min 118 mm[Hg] 74 mm[Hg] Danae hicks, [facility] 7 13:41:58 Date Recorded Body height Body mass index (BMI) Body weight Heart rate Systolic blood pressure Diastolic blood pressure Provider Name and Address Organization Details Last Updated DateTime 8 173.355 cm 36 kg/m2 201102. 38 g 76 /min 120 mm[Hg] 70 mm[Hg] Nelia cornell, [facility] 8 09:41:23 Date Recorded Body height Body mass index (BMI) Body weight Heart rate Systolic blood pressure Diastolic blood pressure Provider Name and Address Organization Details Last Updated DateTime 9 173.355 cm 37.3 kg/m2 411533. 72 g 80 /min 120 mm[Hg] 80 mm[Hg] Chelsy Mcknight [facility] 9 15:33:41 Date Recorded Body height Body mass index (BMI) Body weight Heart rate Systolic blood pressure Diastolic blood pressure Provider Name and Address Organization Details Last Updated DateTime 9 173.355 cm 36.7 kg/m2 035594. 95 g 88 /min 110 mm[Hg] 70 mm[Hg] Ashley Victoria LPN [facility] 9 08:02:31 Date Recorded Body height Body mass index (BMI) Body weight Heart rate Systolic blood pressure Diastolic blood pressure Systolic blood pressure Diastolic blood pressure Systolic blood pressure Diastolic blood pressure Provider Name and Address Organization Details Last Updated DateTime 9 173.99 cm 36.1 kg/m2 611290. 46 g 64 /min 130 mm[Hg] 84 mm[Hg] 138 mm[Hg] 88 mm[Hg] 130 mm[Hg] 86 mm[Hg] Irineo López [facility] 9 11:55:02 Social History Question Answer Notes LastModified by Organizat ion Details LastModified Time Tobacco Smoking Status Former Smoker quit smoking 201207/31/16 Avani Prieto NP [address] [place] [address], [address], [facility] 06/27/2015 13:59:13 Do You Have An Advance Directive? No Information not available 06/27/2015 What Is Your Level Of Alcohol Consumption? Moderate 3-6 Drinks Per Week 03/03/19 Information not available 06/27/2015 Do You Wear A Helmet When Biking? No N/a Information not available 06/27/2015 What Is Your Level Of Caffeine Consumption? Moderate 2-3 Cups Of Coffee Daily Information not available 06/27/2015 How Much Tobacco Do You Chew? None Information not available 06/27/2015 What Type Of Diet Are You Following? REGULAR Information not available 06/27/2015 Which Illicit Or Recreational Drugs Have You Used? 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 1-5yearssinc elastcigaret te Information not available 06/27/2015 How Many Days In The Past Year Have You Had A Heavy Drinking Consumption (4+ Female, 5+ Male)? 3 Information not available 04/28/2019 Are There Any Guns Present In Your Home? No Information not available 06/27/2015 Live Alone Or With Others? With Others Information not available 06/27/2015 Patient Has Health Care Proxy Signed And In Chart Yes Iona Sr [email or web address] Information not available 04/29/2019 Marital Status Iona, Physical Therapist Information not available 04/28/2019 Mosquito Repellent Used Routinely Yes Information not available 06/27/2015 What Was The Date Of Your Most Recent Tobacco Screening? 04/28/2019 Information not available 05/05/2019 How Many Children Do You Have? 0 Information not available 06/27/2015 What Is Your Current Pack Years? 10packyears Information not available 06/27/2015 Seat Belts Used Routinely Yes Information not available 06/27/2015 Are You Sexually Active? Yes One Partner Information not available 06/27/2015 Smoke Alarm In Home Yes Information not available 06/27/2015 What Types Of Sporting Activities Do You Participate In? None Information not available 06/27/2015 General Stress Level High Information not available 06/27/2015 Do You Use Sunscreen Routinely? No Encourage Information not available 04/28/2019 Sex: Unknown Functional Status None recorded. Mental Status None recorded. Family History Relationship Description Onset Age of this Age Resolved Age Notes LastModified by Organization Details LastModified Time Mother Depressive disorder hwzorek Not available 2014 10:32:18 Mother Anxiety hwzorek Not available 1 10:32:18 Mother Substance abuse hwzorek Not available 2014 10:32:18 Sister Depressive disorder hwzorek Not available 2014 10:32:18 Sister Anxiety hwzorek Not available 1 10:32:18 Maternal Grandfather Atrial fibrillation 85 hwzorek Not available 10:32:18 Maternal Grandfather Alzheimer's disease hwzorek Not available 2015 16:18:06 Paternal Grandfather Atrial fibrillation 85 hwzorek Not available 10:32:18 Paternal Grandfather Alzheimer's disease hwzorek Not available 2015 16:18:06 Maternal Grandmother Malignant tumor of breast 85 hwzorek Not available 2014 10:32:18 Maternal Grandmother Alzheimer's disease hwzorek Not available 2015 16:18:06 Paternal Grandmother Alzheimer's disease 65 hwzorek Not available 2015 16:18:06 Paternal Aunt Atrial fibrillation hwzorek Not available 11:57:37 Paternal Uncle Atrial fibrillation hwzorek Not available 11:57:44 Paternal Uncle Malignant tumor of colon 67 hwzorek Not available 2018 11:40:37 Notes:no [place], prostate cancer does not know if family history of HTN or high cholesteral Medical History Condition Response Anxiety Y Allergies Y eczema Y Immunizations Vaccine Type Date Status Note Provider Nam e and Address Organization Details Recorded Time Influenza, recombinant, quadrivalent, PF 10/02/2017 completed Not Available [facility] 0 02:22:34 Tdap 10/10/2014 completed Lima Medina LPN [facility] 06/27/2015 13:57:00 Past Encounters Encounter ID Performer Location Encounter Start Date Encounter Closed Date Diagnosis/Indication Diagnosis SNOMED-CT Code Diagnosis ICD10 Code Diagnosis Note [id number] Naomi Milton CMA [facility], [facility], OFFICE [address] [place] [address] 06/27/2015 13:27:42 06/27/2015 14:21:39 Adult health examination 433863932 see Risk Assessment and Lifestyle Change Counseling section above Counseling [id number] Eczema 39769997 Anxiety 91440932 continu e to work on stress management . Playing guitar, managing stress away from home [id number] Avani Prieto NP [facility], [facility], OFFICE [address] [place] [address] 10/10/2015 09:59:04 10/10/2015 10:33:51 Anxiety 96607483 F41.9 continue to work on stress management . Playing guitar, managing stress away from home Insomnia 528254565 G47.0 0 [id number] Avani Prieto NP , [facility], OFFICE [address] [place] [address] 03/26/2016 09:50:36 03/26/2016 10:47:30 Anxiety 85257371 F41.9 treated since 2013, long history of panic attacks. 10 tabs of lorazepam over the last 6 months. pt longterm goal is to manage without meds Allergic rhinitis 886408 04 J30.9 Snoring 62246840 R06.83 will work on weight loss, sleep hygiene, and managing allergies. no daytime sleepiness [id number] Jenn Alford MD , [facility], OFFICE [address] [place] [address] 07/31/2016 14:06:31 07/31/2016 14:35:19 Tick bite without infection 308579303 W57.XXXA Yesterday you were noted to have a tick bite and it seems the tick was attached for probably less than 4 hours. The descriptio n sounds like it could have been a deer tick.Plan: This is not considered a prolonged attachment of the tick so preventive treatment is not advised. Over the next 30 days please watch for an expanding circular type rash or flulike symptoms or both, and contact us if that occurs. [id number] Avani Prieto NP , [facility], OFFICE [address] [place] [address] 08/22/2016 15:51:46 08/22/2016 16:38:03 Adult health examination 827625401 Z00.00 see Risk Assessment and Lifestyle Change Counseling section above Counseling 172495917 Z71 .9 Irritable bowel syndrome with diarrhea 071845203 K58.0 will try eliminatio n diet Eczema 58265720 L30.9 stable. triggered by stress and cold weather Anxiety 45784392 F41.9 significan tly improved with job change. no recent panic attacks. doing well off citalopram Insomnia 116967450 G47.0 0 ok to continue trazodone. ok to taper off as needed. work on sleep hygiene Obesity 443060114 E66.9 work up to 45 minutes of exercise most days of the week. weight loss 1-2lb a month. follow up in 2-3 months to check in [id number] MEGAN Fu, [facility], OFFICE [address] [place] [address] 12/17/2016 11:46:38 12/17/2016 12:14:11 Obesity 382088521 E66.9 work up to 45 minutes of exercise most days of the week. weight loss 1-2lb a month. Insomnia 866633672 G47.0 0 Snoring 16900306 R06.83 snoring with daytime sleepiness . will work on weight loss and sleep hygiene. pt will consider sleep study. epworth scale 11 [id number] MEGAN Fu, [facility], OFFICE [address] [place] [address] 09/03/2017 11:28:27 09/03/2017 12:01:09 Anxiety 79809632 F41.9 restart citalopram Insomnia 507045517 G47.0 0 lorazepam sparingly for anxiety. try low dose seroquel for sleep [id number] MEGAN Fu, [facility], [address] [place] [address] 10/02/2017 13:31:53 10/02/2017 14:10:45 Adult health examination 222741288 Z00.00 see Risk Assessment and Lifestyle Change Counseling section above Counseling 403664359 Z71 .9 Snoring 30967302 R06.83 snoring with daytime sleepiness . will work on weight loss and sleep hygiene. will get sleep study. epworth scale 9 Irritable bowel syndrome with diarrhea 966493694 K58.0 will work on diet and consider seeing a nutritioni st Obesity 614817968 E66.9 working on weight loss with regular exercise and diet changes Anxiety 85075312 F41.9 improved with citalopram 10mg daily. very occasional lorazepam as needed Active or passive immunization 879019594 Z23 Insomnia 599376520 G47.0 0 okay to try half tab of seroquel as needed for sleep. continue working on sleep hygiene with your therapist [id number] MEGAN Fu, [facility] [address] [place] [address] 02/18/2018 09:33:27 02/18/2018 10:03:55 Anxiety 87951949 F41.9 not currently taking citalopram . lorazepam 3 times in the last couple weeks with significan t stress. he avoids taking this. plans to see his therapist every 1-2 weeks Sleep apnea 36425540 G47 .30 sleep med follow up next week to discuss CPAP Obesity 022736262 E66.9 working on weight loss with regular exercise and diet changes Irritable bowel syndrome with diarrhea 945735659 K58.0 stable. worse with stress Insomnia 434441448 G47.0 0 trazodone as needed for sleep OR okay to try half tab of seroquel as needed for sleep. not to take together. continue working on sleep hygiene with your therapist [id number] MEGAN Fu, [facility] [address] [place] [address] 10/30/2018 15:11:41 11/02/2018 11:18:56 Anxiety 99048197 F41.9 worse lately. no clear trigger. will restart citalopram and get back to therapy, occasional lorazepam prn. will do trial of hydroxyzin e prn. not to take with lorazepam or trazodone Sleep apnea 62936673 G47 .30 CPAP Insomnia 779751222 G47.0 0 trazodone as needed for sleep OR hydroxyzin e 50mg. continue working on sleep hygiene. Obesity 729612987 E66.9 working on weight loss with regular exercise and diet changes. see nutritioni st with your fiance [id number] MEGAN Fu, [facility] [address] [place] [address] 03/03/2019 07:54:17 03/03/2019 08:32:53 Insomnia 723884337 G47.00 trazodone as needed for sleep. continue working on sleep hygiene. Anxiety 67645232 F41.9 worse lately. with school graduation and wedding coming up. he has started back with his therapist. we discussed lorazepam is not a good longterm medication discussed addiction potential and connection s with dementia. will use sparingly for now. note given for travel. follow up for wellness visit after your wedding and may consider maintenanc e med like buspar [id number] Avani Prieto NP , [facility] [address] [place] [address] 04/28/2019 10:54:02 04/28/2019 11:57:42 Adult health examination 213787935 Z00.00 see Risk Assessment and Lifestyle Change Counseling section above Counseling 235717388 Z71 .9 Depression screening 171 668272 Z13.89 depression screening tool administer ed, entered into emr, scored and discussed, time greater than 7.5 minutes. negative Testicular mass 67303799 N50.89 x1 year, no change. will get u/s Elevated blood-pressure reading without diagnosis of hypertension [id number] R03.0 elevated in the office today. pt reports high anxiety related to almost getting into a car accident this morning. will work on stress reduction and relaxation . follow up in 1-2 weeks at [facility] Insomnia [id number] G47.0 0 trazodone as needed for sleep. continue working on sleep hygiene. Sleep apnea [id number] G47 .30 CPAP Anxiety 12633032 F41.9 get back in with therapist. very occasional lorazepam as needed. discussed safety and goal to not use this med Health Concerns Section Related Observation LastModified by Organization Detai ls LastModified Time None Recorded Concern Status LastModified by Organization Details LastModified Time None Recorded Advance Directives Directive N: Payers Encounter Date Sequence Insurance Name Policy Number Policy Ramon Covered Member ID Ramon Member ID Guarantor Name 10/02/2017 1 [facility] - DIRECT CONNECTORCARE TYPE III (HMO) Guille Young [id number] Guille Young 02/18/2018 1 [facility] - DIRECT CONNECTORCARE TYPE III (HMO) Guille Young [id number] Guille Young 10/30/2018 1 [facility] [facility] [employer] - CIGNA (PPO) Guille Young [id number] Guille Young 03/03/2019 1 [facility] - [employer] - CIGNA (PPO) Guille Young [id number] Guille Young 04/28/2019 1 [facility] [facility] [employer] - CIGNA (PPO) Guille Young [id number] Guille Young Notes Date Note Type Note Provider Name and Address Organization Details Recorded Time 7 text/html Physical Exam/MaleReported bypatient.PHAPatient is here for a Wellness Visit. He describes his health status as good. Patient's health is better than last year.Notes: Risk Assessment and Lifestyle Change Counseling-male 18-39Reported bypatient.Coronary Artery Disease Risk Assessment:No Family history of coronary artery disease; Regular exercise program (cardio, wt lifting 2-3 hours a day 2-4 days a week);Not eating a diet low in fat and high in fiber; No personal history of hypertension (one reading of high BP during anxiety);Personal history of diabetes; No use of tobacco (quit 2012); No history of peripheral vascular disease, AAA, or carotid disease; No personal history of coronary artery disease Lung Cancer Risk Assessment:Has used cigarettes Risk for Sexually transmitted disease Assessment:No history of sexually transmitted disease; Monogamous relationship Cognitive/Behavioral Risk Assessment:No history of depression;Family history of depression Diet:Counseled about appropriate portion size; Counseled about eating a diet low in trans and saturated fats and high in fiber, fruits and vegetables Exercise counselingDiscussed the importance of daily physical activity Safety:Counseled about protecting skin from the sun and lowering the risk of skin cancer workDiscussed the importance of a health care proxy and advanced directives Family Planning:Using control condoms pt presents for w/v and anxiety f/u- taking citalopram 10mg daily with improvement in anxiety. lorazepam 0.5-1 tab every couple weeks- slept a very long time after taking seroquel. plans to try half dose. trazodone helps but he wakes up at 4am and cant fall back to sleep- restarted exercise this week. gym- has lost 4lb since last OV- reports eating better but not great. making food at home. plans to cut down on sweets and fatty foods- snoring and daytime sleepiness. 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 he does have 2 more semesters of school- not taking citalopram at this time- lorazepam 3 times in the last 2 weeks. does not like taking this as he gets rebound anxiety- sleep: trazodone helps. has seroquel for as needed as well. he has only used this a couple times- occasional alcohol- no drug use- no exercise but plans to start on friday - Sleep apnea: dx 11/2017. has an appointment next week to discuss a CPAP- ibs: stable. worse with stress. no bleeding with BM LAST OVpt presents to discuss anxiety and insomnia- anxiety has been worse lately with busy schedule. 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 lack of time is hard. impacting his sleep. working up untill sleep- seeing his therapist again every other week- trazodone is not helping for sleep. lorazepam helps but he does not want to take this regularly. ambien in the past (made him hungary and did not sleep), hydroxyzine did not help.- exercise: 20-30 min walk with- guitar helps but does not have much time- just bought a house which is another stressor- stress should be a little better in a month when he is on break from school Avani Prieto NP [address] [place] [address], [place], [phone], [facility] 02/18/2018 10:10:46 9 text/html 33yo M presents for anxiety follow up- anxiety was worse now seems to be getting a little better- hasn't seen his therapist in a while but plans to go back- no big change in life. graduating in february- getting in March- cut out alcohol at [facility] to try to get healthier- working out more, preparing for a 10 K- often takes lorazepam a couple hours before bed 2-3 nights a week then trazodone at bedtime. does not drive the same day after taking lorazepam- good sleep hygiene. no cell phone at night. reading before bed- no panic attacks but feels on the verge of one- stress eating. interested in seeing a fuller brush man - wants to restart citalopram. anxiety gets worse when restarting then feels blurry all before getting better in a week or so. does not decreased libido. wants to restart anyway. eventually wants to be off meds NUVIA- CPAP 5-6 nights a week Avani Prieto NP [address] [place] [address], [phone], [facility] 10/30/2018 20:13:52 9 text/html 34yo F presents for anxiety/depression follow up- he feels his mood has been good but his anxiety has been worse- just graduated and his wedding is in 10 days- [facility] is in [facility]- then to [place] for [employer]. needs letter to okay his medication- started with therapist again - breathing exercises help with anxiety- he often feels he is pushing off panic attack- lorazepam a couple tabs a week - citalopram helped in the past- not ready to start new med now but would consider after his wedding- waking up at 4-5am and has a hard time getting back to sleep. trazodone helps him fall asleep- gym 3 times a week or walks with dogs, golfing 1-2 times a weeks- cut down processed sugar- salad every day, fat free dressing and lean protein. cooking at home more- occasional alcohol- no drug use Avani Prieto NP [address] [place] [address], [phone], [facility] 03/03/2019 13:17:59 9 text/html Physical Exam/MaleReported bypatient.PHAPatient is here for a Wellness Visit. He describes his health status as good. Patient's health is better than last year.Notes: Risk Assessment and Lifestyle Change Counseling-male 18-39Reported bypatient.Coronary Artery Disease Risk Assessment:No Family history of coronary artery disease; Regular exercise program (cardio, wt lifting 2-3 hours a day 2-4 days a week);Not eating a diet low in fat and high in fiber; No personal history of hypertension (one reading of high BP during anxiety);Personal history of diabetes; No use of tobacco (quit 2012); No history of peripheral vascular disease, AAA, or carotid disease; No personal history of coronary artery disease Lung Cancer Risk Assessment:Has used cigarettes Risk for Sexually transmitted disease Assessment:No history of sexually transmitted disease; Monogamous relationship Cognitive/Behavioral Risk Assessment:No history of depression;Family history of depression Diet:Counseled about appropriate portion size; Counseled about eating a diet low in trans and saturated fats and high in fiber, fruits and vegetables Exercise counselingDiscussed the importance of daily physical activity Safety:Counseled about protecting skin from the sun and lowering the risk of skin cancer workDiscussed the importance of a health care proxy and advanced directives Family Planning:Using control condoms 34yo M presents for [place]- wants to work on diet- has been more activite. hiking and walking dogs- insomnia: trazodone every night, sleeping well most nights with this. working on sleep hygiene. breathing exercises help. plans to start seeing his therapist again.- anxiety: has not used lorazepam in a month! no maintenance at this time. plans to get back in with therapy. almost got in a car accident on his was here. is high anxiety now- lost job, looking for a job in [employer] and [place]- sleep apnea: cpap- noticed lump in scrotum a year ago. no pain, no change Avani Prieto NP [address] [place] [address], [phone], [facility] 04/28/2019 14:49:19
== END 2024-12-09 12:20 | disposition home or self-care (01) ==
PROVIDERS: PCP Physician Assistant; Visit Provider Physician Assistant
DX: G47.33 Obstructive sleep apnea (adult) (pediatric) (principal); F41.1 Generalized anxiety disorder; E66.812 Obesity, class 2; Z68.37 Body mass index [BMI] 37.0-37.9, adult

== ENCOUNTER → 2024-12-09 11:24 | Outpatient (BNVA) | payer BC, SELFPAY | PROVIDERS: PCP Physician Assistant; Visit Provider Physician Assistant | DX: F41.1 Generalized anxiety disorder (principal); E66.812 Obesity, class 2; Z68.37 Body mass index [BMI] 37.0-37.9, adult; G47.33 Obstructive sleep apnea (adult) (pediatric); Z99.89 Dependence on other enabling machines and devices | CPT/HCPCS: 96127 ==

== ENCOUNTER 2025-01-26 08:06 | Outpatient (AMB) | payer BC, SELFPAY ==
--- NOTE | 2025-01-26 08:09 | A.OFFVIS_ITS ---
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 Required: No Accompanied by: Self / Same As Patient Allergies amoxicillin [AMOXICILLIN] Allergy (Unknown, Verified 01/26/25 08:54) HIVES azithromycin Allergy (Unknown, Verified 01/26/25 08:54) hives penicillin V Allergy (Unknown, Verified 01/26/25 08:54) hives Medication List - Last Reconciled 01/26/25 by TOSHA FaganP- citalopram (Celexa) 20 mg PO DAILY 90 days lorazepam 0.5 mg PO DAILY PRN 14 days tirzepatide (weight loss) (Zepbound) 7.5 mg (0.5 mL) subcut QWEEK 4 weeks trazodone 100 mg (2 x 50 mg) PO BEDTIME 30 days triamcinolone acetonide 0.1% 1 appl topical BID 15 days HPI Comments Details: Guille Saucedo is a pleasant 40 year old male patient of Dr. Bustillo. He has a past medical history of anxiety, insomnia, and obstructive sleep apnea. He presents to the office today for - vasectomy evaluation Vasectomy evaluation The patient presents for vasectomy consultation.? 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 The vasectomy may be complicated due to a history of no complicating issues. Patient education has been provided via AUA video, via printed information, risks of failure, recovery time, bruising and potential pain syndrome have been stressed Discussion today focused on the presence of vasectomy and the risks, benefits and alternatives that are available. Vasectomy as intended as a permanent form of control. Printed information and literature was provided to the patient. Overall there is a one in 2500 failure rate. This can occur at any time after vasectomy. Risks were discussed highlighting hematoma, spermatocele, epididymal congestion, development of sperm antibodies, and development of chronic pain estimated between 1-5%. The procedure was reviewed in detail. Anatomical diagrams of the male genitalia were used to explain the location of the vas deferens. The vas deferens will be transected, the proximal end will be cauterized, a metal clip would be applied to separate the 2 vas deferens ends. It was explained the procedure will be done in the office and takes approximately 10-15 minutes. Less common problems that arise with vasectomy include hematoma, bleeding, allergic reaction to anesthetic, epididymal infection, epididymal congestion, scrotal discomfort, spermatic leak, spermatic granuloma and the possibility of antisperm antibodies. He understands these risks and wishes to proceed. Consent was signed at the office today. He also understands that it takes 12 weeks for sperm to fully clear the system. He will need to provide a semen sample at 12 weeks and if this is not clear a 2nd sample at 16 weeks. Medical clearance to stop using protection will only be provided if he satisfies published criteria for sperm clearance. [facility] Surgical History No pertinent past surgical history Family History Father No problems noted. Mother Mental health disorder Sister Substance use disorder Mental health disorder Maternal Grandmother Mental health disorder Maternal Grandfather Mental health disorder Social History Housing: House Alcohol intake: current Alcohol intake frequency: a few times a week Patient Tobacco Use Status: Former Tobacco user e-Cigarette/Vaping Use: Never Used service: No Current occupational status: employed Current occupation: [employer] Cognitive needs: No Hearing needs: No Vision needs: No Review of Systems Const All systems reviewed & are unremarkable except as noted in HPI and below Physical Exam Const General: cooperative, healthy appearing, comfortable, no acute distress, well developed, alert and awake Orientation/consciousness: patient oriented x3 Limitations: no limitations HEENT Head: Yes normal to inspection, Yes normocephalic and Yes atraumatic Ears: hearing grossly normal bilaterally Eyes General: appearance normal, both eyes and all related structures Neck Neck: Yes normal visual inspection and Yes trachea midline Chest Chest palpation & inspection: normal inspection of the chest Resp Effort & Inspection: normal respiratory effort and able to speak in complete sentences Cardio Rate: regular rate GI Inspection: Yes normal to inspection General: Yes no CVA tenderness Male General Exam: Yes normal external exam Penis: normal penis and circumcised Meatus: meatus normal Scrotum: Varicocele present Testes: Testes normal Back/Spine/Pelvis Back: no CVA tenderness Skin General skin exam: no rashes or lesions noted Neuro General: patient oriented x3 Extrem General: Yes normal to inspection Psych Appearance: grossly normal and well kempt Mental Status: mental status grossly normal Speech and movement: Normal speech and movement present and Clear speech present Affect: normal affect Attitude: cooperative Thought process: Normal thought process present Thought content: Normal thought content present Insight: Fair insight present (Psych) Judgement: Fair judgement present (Psych) Assessment & Plan Assessment & Plan (1) Encounter for vasectomy counseling: Code(s): Z30.09 - Encounter for other general counseling and advice on contraception Category: Medical (2) Anxiety about health: Code(s): R45.89 - Other symptoms and signs involving emotional state Category: Medical Plan Vasectomy procedure was discussed at length; risks and benefits All questions were answered Consent obtain Prescriptions provided; we discussed importance of bringing them to office day of procedure. He otherwise denies any bothersome urinary issues. He reports be happy with current voiding parameters. We discussed semen analysis in office verses fellows kit. Schedule for in office vasectomy Follow-up per doctor's orders; or sooner with any issues, concerns, and or questions. Medications: New diazepam (Valium) bring with you to office day of procedure 2 mg PO DAILY 2 tabs 0RF anxiety R45.89 - Other symptoms and signs involving emotional state tramadol Bring with you to office day of procedure 50 mg PO Q8H PRN 7 tabs 0RF pain N43.3 - Hydrocele, unspecified Patient Instructions: The patient had an opportunity to ask questions regarding the treatment plan. All questions were answered. Physical exam, labs, and imaging were discussed and reviewed in detail. As well as risks, benefits, and discussion of treatment choices. No major barriers to understanding were identified. The patient expressed understanding and agreement with the above treatment plan. The patient was made aware they should contact our office by phone for worsening of their current condition, the appearance of new symptoms, or with any questions or concerns. Compliance is encouraged with any medications and follow up testing that is ordered. It is a privilege to be allowed the opportunity to participate in? your urological care.? Again, if you have any questions or concerns If you have any questions or concerns please do not hesitate to contact me. The office is [phone]. This note is constructed using voice recognition software. While every effort has been made to ensure accuracy captain's assistant errors may have been included. Yours sincerely, FINA Fagan Coding Level of Care Code New Pt Level 4 (38966) Diagnoses Encounter for vasectomy counseling Z30.09 Anxiety about health R45.89
--- OUTSIDE RECORDS SUMMARY | 2025-01-26 08:11 | XMS_ITS | Data Portability ---
Author Organization [facility] Address [address] [place] [address] Assessment No assessment recorded. Plan of Treatment Reminders Order Date Submit Date Provider Last Modified By Organization Details Last Modified Time Details Appointments None recorded. Lab rapid strep group A, throat 2022 023 [email or web address] _gracie sandoval, [address] [place] [address], [phone], 10:03:30 Referral None recorded. Procedures None recorded. Surgeries None recorded. Imaging None recorded. Medication Orders clindamycin HCl 300 mg capsule 2022 023 [email or web address] [id number], [address] [place], [address], 10:05:59 Patient TargetsNo targets recorded. Patient Instructions Encounter Date Encounter Id Patient Instructions Last Modified By Organization Details Last Modified Time 02/17/2023 [id number] strep throat: care instructions eal Not available 02/17/2023 10:03:45 Reason for Referral None Reported. Results Created Date Observation Date Name Description Value Unit Range Abnormal Flag Note LastModifiedBy Organization Detail LastModifiedTime 02/18/2002/17/2023 rapid strep group A, throa t Unknown Analyte Normal = Negati ve Not Available _bertha [address], [address], 02/17/2023 09:33:50 02/18/2002/17/2023 rapid strep group A, throa t Unknown Analyte positi ve Not Available [facility] [address] [facility], [place], [address], 02/17/2023 09:33:50 Result Notes None recorded. Problems Name Problem SNOMED Code Status Onset Date Resolution Date Notes Provider Name and Address Organization Details Recorded Time Insomnia 141777595 Active 023 IRIS COUVERTADDI null, [place] - [facility] 3 09:33:04 Anxiety 76846916 Active 023 IRIS COUVERTIER null, [place] - [facility] 3 09:33:11 Problem Notes None recorded. Medical Equipment None Reported. Allergies Allergen ID Allergen Name Allergen Category Reaction Reaction Severity Criticality Documentation Date Start Date Code Code System Note Provider Name and Address Organization Details Recorded Time 560097 Product containin g penicilli n (product) medicatio n Not available Not available Not available 02/17/2023 28733 8001 SNOMED IRIS COUVERTIE R null, [place] - [facility] 3 09:32:24 193840 amoxicill in medicatio n Not available Not available Not available 02/17/2023 723 RxNorm IRIS COUVERTIE R null, [place] - [facility] 3 09:32:31 924339 azithromy gilbert medicatio n Not available Not available Not available 02/17/2023 56324 RxNorm IRIS COUVERTIE R null, [place] - [...] Updated DateTime 3 177.8 cm 35.9 kg/m2 364377. 09 g 97.8 [degF] 18 /min 99 [...] SNOMED-CT Code Diagnosis ICD10 Code Diagnosis Note [id number] [address] [address] 07/05/2020 10:05:18 07/05/2020 11:32:07 [id number] Lilian Ansari MD [address] [address] [place] [address] 02/17/2023 08:14:40 02/17/2023 10:07:13 Streptococcal sore throat [id number] J02.0 Please follow up with PCP or [...] Ramon Member ID Guarantor Name 07/05/[address] [facility] [id number] Guille Young [id number] Guille Young 02/17/2023 1 [facility] [id number] Guille Young [id number] Guille Young Notes Date Note Type Note Provider Name and Address Organization Details Recorded Time 02/17/2023 text/html Sore throatRepor alejandra bypatient.Location: hroat Severity:moderate Quality:sharp Associated Symptoms:no cough; no sputum production; no shortness of breath; no wheezing; no sinus pain; no vomiting; no nausea; No hoarseness;sore throat;fever Modifying Factors:exposed to Strep household * Lilian Ansari MD [address] [place], [address], [place] - [facility] 02/17/2023 10:06:40
--- OUTSIDE RECORDS SUMMARY | 2025-01-26 08:11 | XMS_ITS | Data Portability ---
Author Organization [place], , [facility] Address [address] [place] [address] Care Team Providers Care Health Information Provider Name Role Phone ARY WILSON CONSULTANT [employer]CHN[employer] OTHER AVANI PRIETO Primary Care Provider Assessment [...] testing and management as warranted 2016 017 [facility], [address] [facility], [address], [place], [address], 8 05:01:13 Procedures None recorded. Surgeries None recorded. Imaging US, scrotum - 34yo M with firm mobile mass left scrotum x1 year. non-tender 2018 019 [facility] (Imaging), [address], [place]bar, [address], 9 10:29:06 Medication Orders trazodone 50 mg tablet 2018 019 INTERFACE [id number], [address] [place], [address], 9 08:32:45 lorazepam 1 mg tablet 2018 019 INTERFACE [id number], [address] [facility] [place], [address], 9 08:32:45 trazodone 50 mg tablet 2018 019 INTERFACE [id number], [address] [place], [address], 9 16:10:31 hydroxyzin e HCl 25 mg tablet 2018 019 [email or web address] [id number], [address] [place], [address], 9 08:19:42 citalopram 20 mg tablet 2018 019 [email or web address] [id number], [address] [place], [address], 9 08:00:01 Patient TargetsNo targets recorded. Patient Instructions Encounter Date Encounter Id Patient Instructions Last Modified By Organization Details Last Modified Time 10/02/2017 [id number] Well Visit, Ages 18 to 65: Care [...] - continue citalopram - consider seeing a flight instructor - regular dental and eye exams - flu vaccine today - follow up in 3-4 months - physical in 1 year [email or web address] Not available 10/02/2017 14:13:03 02/18/2018 [id number] After a discussi on of treatment options, [...] needed [email or web address] Not available 02/18/2018 10:10:14 10/30/2018 [id number] After a discussi on of treatment options, [...] to take with trazodone - schedule with flight instructor - follow up at wellness visit in December [email or web address] Not available 10/30/2018 20:13:25 New medication w as discussed with patient including risks, benefits ,possible and expected side effects. Patient understands and is willing to begin medication as prescribed. [email or web address] Not available 10/30/2018 20:13:31 04/28/2019 [id number] Well Visit, Ages 18 to 65: Care [...] [facility], Encounter Date: 10/02/2017 Project Manager Industrial/dietitian Refer ral for Obesity 33yo yo M with obesity and stress eating. wants to work on diet with fihari Referring Physician: Avani Prieto [facility], Encounter Date: 10/30/2018 Results Created Date Observation Date Name Description Value Unit Range Abnormal Flag Note LastModifiedBy Organization Detail LastModifiedTime 11/28/19 18 11/25/2017 polys omnog gogo No observ ation record ed. [facility] [address] [place], [address], 11/28/2017 15:17:28 03/01/20 18 polys omnog gogo No observ ation record ed. [facility] [address] [place] [address], [address], 03/02/2018 17:21:01 Result Notes None recorded. Problems Name Problem SNOMED Code Status Onset Date Resolution Date Notes Provider Name and Address Organization Details Recorded Time Eczema 76815643 Active since teens Avani Prieto NP [address] [place], [place] [address]J[place], [address], [facility] 5 10:31:30 Anxiety 24295539 Active treated since 2013, long history of panic attacks [place], [address], [facility] 5 10:49:48 Irritabl e bowel syndrome with diarrhea 506395614 Active 2015 Avani Prieto NP [address] [place], [address], [facility] 6 16:37:25 Obesity 950003512 Active 2015 Avani Prieto NP [address] [place], [address], [facility] 6 16:39:33 Sleep apnea 82686185 Active 2017 dx 11/2017 Avani Prieto NP [address] [place], [place] [address], [address], [facility] 8 15:17:04 Obstruct timo sleep apnea syndrome 65827012 Completed 201702/18/2018 fit for CPAP 02/2018 Removal Reason: duplicate Avani Prieto NP [address] [place] [address] J[place], [place], [address], [facility] 8 10:03:06 Insomnia 412076124 Active 2017 Avani Prieto NP [address] [place], [place] [address]J[place], [place], [address], [facility] 8 10:03:33 Problem Notes None recorded. Procedures Surgical History Date Name Laterality Status Provider Name and Address Organization Details Recorded Time 7 Lyman Sleepiness Scale completed Avani Prieto NP [address] [place] [address], [address], [facility] 10/02/2017 13:58:31 7 Lyman Sleepiness Scale completed Avani Prieto NP [address] [place] [address], [address], [facility] 12/17/2016 12:10:15 6 Lyman Sleepiness Scale completed Avani Prieto NP [address] [place] [address], [address], [facility] 03/26/2016 10:31:49 Imaging Results Imaging Date Name Status LastModified by [facility] Details LastModified Time 11/25/2017 polysomnogram completed [facility] [address] [place] [address], [address], 11/28/2017 15:17:28 03/01/2018 polysomnogram completed [facility] ine Services [address] [place], [address], 03/02/2018 17:21:01 Procedure Notes None recorded. Medical Equipment None Reported. Allergies Allergen ID Allergen Name Allergen Category Reaction Reaction Severity Criticality Documentation Date Start Date Code Code System Note Provider Name and Address Organization Details Recorded Time 833163 amoxicill in medicatio n rash Not available Not available 06/27/2015 723 [facility] 5 13:37:51 750657 erythromy gilbert medicatio n Not available Not available Not available 06/27/2015 4053 RxNorm [facility] 5 13:37:51 314989 Product containin g penicilli n (product) medicatio n Not available Not available Not available 06/27/2015 28635 8001 SNOMED [facility] 5 13:37:51 744562 egg extract food,medi cation Not available Not available Not available 06/27/2015 60351 15 RxNorm [facility] 5 13:37:51 Medications Name Sig Start Date [...] Updated DateTime 7 173.355 cm 35.6 kg/m2 519387. 8 g 96 /min 118 mm[Hg] 74 mm[Hg] Danae hicks, [facility] 7 13:41:58 Date Recorded Body height Body mass index (BMI) Body weight Heart rate Systolic blood pressure Diastolic blood pressure Provider Name and Address Organization Details Last Updated DateTime 8 173.355 cm 36 kg/m2 095415. 38 g 76 /min 120 mm[Hg] 70 mm[Hg] Nelia cornell, [facility] 8 09:41:23 Date Recorded Body height Body mass index (BMI) Body weight Heart rate Systolic blood pressure Diastolic blood pressure Provider Name and Address Organization Details Last Updated DateTime 9 173.355 cm 37.3 kg/m2 829916. 72 g 80 /min 120 mm[Hg] 80 mm[Hg] Chelsy Mcknight [facility] 9 15:33:41 Date Recorded Body height Body mass index (BMI) Body weight Heart rate Systolic blood pressure Diastolic blood pressure Provider Name and Address Organization Details Last Updated DateTime 9 173.355 cm 36.7 kg/m2 277037. 95 g 88 /min 110 mm[Hg] 70 mm[Hg] Ashley Victoria LPN [facility] 9 08:02:31 Date Recorded Body height Body mass index (BMI) Body weight Heart rate Systolic blood pressure Diastolic blood pressure Systolic blood pressure Diastolic blood pressure Systolic blood pressure Diastolic blood pressure Provider Name and Address Organization Details Last Updated DateTime 9 173.99 cm 36.1 kg/m2 091767. 46 g 64 /min 130 mm[Hg] 84 mm[Hg] 138 mm[Hg] 88 mm[Hg] 130 mm[Hg] 86 mm[Hg] Irineo López [facility] 9 11:55:02 Social History Question Answer Notes LastModified by Organizat ion Details LastModified Time Tobacco Smoking Status Former Smoker quit smoking 201207/31/16 Avani Prieto NP [address] [place] [address], [address], [facility] 06/27/2015 13:59:13 Do You Have An Advance [...] 67 [email or web address] Not available 2018 11:40:37 Notes:no [place], prostate cancer does not know if family history of HTN or high cholesteral Medical History Condition Response eczema Y Anxiety Y Allergies Y Immunizations Vaccine Type Date Status Note Provider Nam e and Address Organization Details Recorded Time Influenza, recombinant, quadrivalent, PF 10/02/2017 completed Not Available [facility] 0 02:22:34 Tdap 10/10/2014 completed Lima Medina LPN [facility] 06/27/2015 13:57:00 Past Encounters Encounter ID Performer Location Encounter Start Date Encounter Closed Date Diagnosis/Indication Diagnosis SNOMED-CT Code Diagnosis ICD10 Code Diagnosis Note [id number] Naomi Milton CMA FP, [facility], OFFICE [address] [place] [address] 06/27/2015 13:27:42 06/27/2015 14:21:39 Adult health examination [id number] see Risk Assessment and Lifestyle Change Counseling section above Counseling 702110512 Eczema 93102179 Anxiety 45148291 continu e to work on stress management . Playing guitar, managing stress away from home [id number] Avani Prieto NP FP, [facility], OFFICE [address] [place] [address] 10/10/2015 09:59:04 10/10/2015 10:33:51 Anxiety 89292835 F41.9 continue to work on stress management . Playing guitar, managing stress away from home Insomnia 429102941 G47.0 0 [id number] Avani Prieto NP , [facility], OFFICE [address] [place] [address] 03/26/2016 09:50:36 03/26/2016 10:47:30 Anxiety 03690503 F41.9 treated since 2013, long history of panic attacks. 10 tabs of lorazepam over the last 6 months. pt skilled nursing goal is to manage without meds Allergic rhinitis 198632 04 J30.9 Snoring 33963887 R06.83 will work on weight loss, sleep hygiene, and managing allergies. no daytime sleepiness [id number] Jenn Alford MD , [facility], OFFICE [address] [place] [address] 07/31/2016 14:06:31 07/31/2016 14:35:19 Tick bite without infection 869499780 W57.XXXA Yesterday you were noted to have [...] both, and contact us if that occurs. [id number] Avani Prieto NP , [facility], OFFICE [address] [place] [address] 08/22/2016 15:51:46 08/22/2016 16:38:03 Adult health examination 299400346 Z00.00 see Risk Assessment and Lifestyle Change Counseling section above Counseling 807633014 Z71 .9 Irritable bowel syndrome with diarrhea 685136345 K58.0 will try eliminatio n diet Eczema 31260626 L30.9 stable. triggered by stress and cold weather Anxiety 91430538 F41.9 significan tly improved with job change. no recent panic attacks. doing well off citalopram Insomnia 664562998 G47.0 0 ok to continue trazodone. ok to taper off as needed. work on sleep hygiene Obesity 151591401 E66.9 work up to 45 minutes of exercise most days of the week. weight loss 1-2lb a month. follow up in 2-3 months to check in [id number] MEGAN Fu, [facility], OFFICE [address] [place] [address] 12/17/2016 11:46:38 12/17/2016 12:14:11 Obesity 973617964 E66.9 work up to 45 minutes of exercise most days of the week. weight loss 1-2lb a month. Insomnia 486692329 G47.0 0 Snoring 28887109 R06.83 snoring with daytime sleepiness . will work on weight loss and sleep hygiene. pt will consider sleep study. epworth scale 11 [id number] MEGAN Fu, [facility], OFFICE [address] [place] [address] 09/03/2017 11:28:27 09/03/2017 12:01:09 Anxiety 99340463 F41.9 restart citalopram Insomnia 577234160 G47.0 0 lorazepam sparingly for anxiety. try low dose seroquel for sleep [id number] MEGAN Fu, [facility], OFFICE [address] [place] [address] 10/02/2017 13:31:53 10/02/2017 14:10:45 Adult health examination 871085929 Z00.00 see Risk Assessment and Lifestyle Change Counseling section above Counseling 773786900 Z71 .9 Snoring 92793318 R06.83 snoring with daytime sleepiness . will work on weight loss and sleep hygiene. will get sleep study. epworth scale 9 Irritable bowel syndrome with diarrhea 286830441 K58.0 will work on diet and consider seeing a nutritioni st Obesity 824940141 E66.9 working on weight loss with regular exercise and diet changes Anxiety 64069501 F41.9 improved with citalopram 10mg daily. very occasional lorazepam as needed Active or passive immunization 074139829 Z23 Insomnia 210502399 G47.0 0 okay to try half tab of seroquel as needed for sleep. continue working on sleep hygiene with your therapist [id number] MEGAN Fu, [facility], [address] [place] [address] 02/18/2018 09:33:27 02/18/2018 10:03:55 Anxiety 11659090 F41.9 not currently taking citalopram . lorazepam 3 times in the last couple weeks with significan t stress. he avoids taking this. plans to see his therapist every 1-2 weeks Sleep apnea 36479038 G47 .30 sleep med follow up next week to discuss CPAP Obesity 891279108 E66.9 working on weight loss with regular exercise and diet changes Irritable bowel syndrome with diarrhea 345651961 K58.0 stable. worse with stress Insomnia 638370695 G47.0 0 trazodone as needed for sleep OR okay to try half tab of seroquel as needed for sleep. not to take together. continue working on sleep hygiene with your therapist [id number] MEGAN Fu, [facility], [address] [place] [address] 10/30/2018 15:11:41 11/02/2018 11:18:56 Anxiety 84005766 F41.9 worse lately. no clear trigger. will restart citalopram and get back to therapy, occasional lorazepam prn. will do trial of hydroxyzin e prn. not to take with lorazepam or trazodone Sleep apnea 99927477 G47 .30 CPAP Insomnia 180016622 G47.0 0 trazodone as needed for sleep OR hydroxyzin e 50mg. continue working on sleep hygiene. Obesity 970538401 E66.9 working on weight loss with regular exercise and diet changes. see nutritioni st with your fiance [id number] MEGAN Fu, [facility], [address] [place] [address] 03/03/2019 07:54:17 03/03/2019 08:32:53 Insomnia 396449003 G47.00 trazodone as needed for sleep. continue working on sleep hygiene. Anxiety 57539030 F41.9 worse lately. with school graduation and wedding coming up. he has started back with his therapist. we discussed lorazepam is not a good dental mold maker medication discussed addiction potential and connection s with dementia. will use sparingly for now. note given for travel. follow up for wellness visit after your wedding and may consider maintenanc e med like buspar [id number] Avani Prieto NP , [facility], [address] [place] [address] 04/28/2019 10:54:02 04/28/2019 11:57:42 Adult health examination 215581035 Z00.00 see Risk Assessment and Lifestyle Change Counseling section above Counseling 056946272 Z71 .9 Depression screening 171 860026 Z13.89 depression screening tool administer ed, entered into emr, scored and discussed, time greater than 7.5 minutes. negative Testicular mass 38320436 N50.89 x1 year, no change. will get u/s Elevated blood-pressure reading without diagnosis of hypertension 999553341 R03.0 elevated in the office today. pt reports high anxiety related to almost getting into a car accident this morning. will work on stress reduction and relaxation . follow up in 1-2 weeks at BP clinic Insomnia 171747691 G47.0 0 trazodone as needed for sleep. continue working on sleep hygiene. Sleep apnea 12048219 G47 .30 CPAP Anxiety 51635585 F41.9 get back in with therapist. very [...] Ramon Member ID Guarantor Name 10/02/[address] [facility] [employer] [facility] - DIRECT CONNECTORCARE TYPE III (HMO) Guille Young [id number] Guille Young 02/18/[address] [facility] [employer] [facility] - DIRECT CONNE[employer]CARE TYPE III (HMO) Guille Young [id number] Guille Young 10/30/2018 1 [facility] [facility] - CIGNA (PPO) Guille Young [id number] Guille Young 03/03/2019 1 [facility] [facility] - CIGNA (PPO) Guille Young [id number] Guille Young 04/28/2019 1 [facility] [place] (PPO) Guille Young [id number] Guille Young Notes Date Note Type Note [...] do a sleep study Avani Prieto NP [address] [place] [address], [address], [facility] 10/02/2017 14:13:13 8 text/html 33yo M presents to follow up anxiety and sleep- 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 lack of time is hard. impacting his [...] on break from school Avani Prieto NP [address] [place] [address], [address], [facility] 02/18/2018 10:10:46 9 text/html 33yo M presents [...] one- stress eating. interested in seeing a flight instructor - wants to restart citalopram. anxiety gets worse when restarting then feels blurry all before getting better in a week or so. does not decreased libido. wants to restart anyway. eventually wants to be off meds NUVIA- CPAP 5-6 nights a week Avani Prieto NP [address] [place] [address], [address], [facility] 10/30/2018 20:13:52 9 text/html 34yo F presents for anxiety/depression follow up- he feels his mood has been good but his anxiety has been worse- just graduated and his wedding is in 10 days- [place] [facility]- then to [place]. needs letter to okay his medication- started [...] alcohol- no drug use Avani Prieto NP [address] [place] [address], [address], [facility] 03/03/2019 13:17:59 9 text/html Physical Exam/MaleReported bypatient.PHAPatient [...] lost job, looking for a job in [employer] [place]- sleep apnea: cpap- noticed lump in scrotum a year ago. no pain, no change Avani Prieto NP [address] [place] [address], [address], [facility] 04/28/2019 14:49:19
== END 2025-01-26 08:52 | disposition home or self-care (01) ==
LOC: HO.HUSH 08:07
PROVIDERS: PCP Physician Assistant; Visit Provider Nurse Practitioner Family
DX: Z30.09 Encounter for other general counseling and advice on contraception (principal); R45.89 Other symptoms and signs involving emotional state
CPT/HCPCS: 99204

== ENCOUNTER → 2025-01-26 08:06 | Outpatient (BNVA) | payer BC, SELFPAY | PROVIDERS: PCP Physician Assistant; Visit Provider Nurse Practitioner Family ==

== ENCOUNTER 2025-03-01 08:39 | Outpatient (REF) | payer BC, SELFPAY ==
--- OUTSIDE RECORDS SUMMARY | 2025-03-01 08:57 | XMS_ITS | Data Portability ---
Author Organization [facility], , [facility] Address [address] [place] [address] Care Team Providers Care Income Tax Administrator Name Role Phone ARY WILSON KOSHER INSPECTOR OTHER AVANI PRIETO Primary Care Provider Assessment [...] testing and management as warranted 2016 017 [facility], [address] [facility], [facility] [address], [place], [address], 8 05:01:13 Procedures None recorded. Surgeries None recorded. Imaging US, scrotum - 34yo M with firm mobile mass left scrotum x1 year. non-tender 2018 019 [facility] (Imaging), [address], KAYCEE Akbar, [address], 9 10:29:06 Medication Orders trazodone 50 mg tablet 2018 019 INTERFACE [id number], [address] [place], [address], 9 08:32:45 lorazepam 1 mg tablet 2018 019 INTERFACE [id number], [address] [facility] [place], [address], 9 08:32:45 trazodone 50 mg tablet 2018 019 INTERFACE [id number], [address] [place], [address], 9 16:10:31 hydroxyzin e HCl 25 mg tablet 2018 019 [email or web address] [id number], [address] [place], [address], 9 08:19:42 citalopram 20 mg tablet 2018 019 [email or web address] [id number], [address] [place], [address], 9 08:00:01 Patient TargetsNo targets recorded. Patient Instructions Encounter Date Encounter Id Patient Instructions Last Modified By Organization Details Last Modified Time 10/02/2017 [id number] Well Visit, Ages 18 to 65: Care [...] - continue citalopram - consider seeing a rn wound - regular dental and eye exams - flu vaccine today - follow up in 3-4 months - physical in 1 year [email or web address] Not available 10/02/2017 14:13:03 02/18/2018 [id number] After a discussi on of treatment options, [...] needed hwzorek Not available 02/18/2018 10:10:14 10/30/2018 [id number] After a discussi on of treatment options, [...] to take with trazodone - schedule with rn wound - follow up at wellness visit in December hwzorek Not available 10/30/2018 20:13:25 New medication w as discussed with patient including risks, benefits ,possible and expected side effects. Patient understands and is willing to begin medication as prescribed. 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 wants to work on diet with fihari Referring Physician: Avani Prieto [facility], Encounter Date: 10/30/2018 Results Created Date Observation Date Name Description Value Unit Range Abnormal Flag Note LastModifiedBy Organization Detail LastModifiedTime 11/28/19 18 11/25/2017 polys omnog gogo No observ ation record ed. [facility] Services [address] [place], [address], 11/28/2017 15:17:28 03/01/20 18 polys omnog gogo No observ ation record ed. [facility] [address] [place] [address], [address], 03/02/2018 17:21:01 Result Notes None recorded. Problems Name Problem SNOMED Code Status Onset Date Resolution Date Notes Provider Name and Address Organization Details Recorded Time Eczema 45411874 Active since teens Avani Prieto NP [address] [place], [place] [address] [place], [address], [facility] 5 10:31:30 Anxiety 20130848 Active treated since 2013, long history of panic attacks [place], [address], [facility] 5 10:49:48 Irritabl e bowel syndrome with diarrhea 939422145 Active 2015 Avani Prieto NP [address] [place], [address], [facility] 6 16:37:25 Obesity 534913472 Active 2015 Avani Prieto NP [address] [place], [address], [facility] 6 16:39:33 Sleep apnea 51875937 Active 2017 dx 11/2017 Avani Prieto NP [address] [place], [place] [address] [place], [address], [facility] 8 15:17:04 Obstruct timo sleep apnea syndrome 85408715 Completed 201702/18/2018 fit for CPAP 02/2018 Removal Reason: duplicate Avani Prieto NP [address] [place] [address] Jj Watson, [place], [address], [facility] 8 10:03:06 Insomnia 210334488 Active 2017 Avani Prieto NP [address] [place], [place] [address], [place], [address], [facility] 8 10:03:33 Problem Notes None recorded. Procedures Surgical History Date Name Laterality Status Provider Name and Address Organization Details Recorded Time 7 [place] Sleepiness Scale completed Avani Prieto NP [address] [place] [address], [address], [facility] 10/02/2017 13:58:31 7 [place] Sleepiness Scale completed Avani Prieto NP [address] [place] [address], [address], [facility] 12/17/2016 12:10:15 6 [place] Sleepiness Scale completed Avani Prieto NP [address] [place] [address], [address], [facility] 03/26/2016 10:31:49 Imaging Results Imaging Date Name Status LastModified by [facility] Details LastModified Time 11/25/2017 polysomnogram completed [facility] Sleep Medic [facility] Services [address] [place] [address], [address], 11/28/2017 15:17:28 03/01/2018 polysomnogram completed [facility] Sleep Medic ine Services [address] [place], [address], 03/02/2018 17:21:01 Procedure Notes None recorded. Medical Equipment None Reported. Allergies Allergen ID Allergen Name Allergen Category Reaction Reaction Severity Criticality Documentation Date Start Date Code Code System Note Provider Name and Address Organization Details Recorded Time 249471 amoxicill in medicatio n rash Not available Not available 06/27/2015 723 [facility] 5 13:37:51 696966 erythromy gilbert medicatio n Not available Not available Not available 06/27/2015 4053 RxNorm [facility] 5 13:37:51 054131 Product containin g penicilli n (product) medicatio n Not available Not available Not available 06/27/2015 48246 8001 SNOMED [facility] 5 13:37:51 296863 egg extract food,medi cation Not available Not available Not available 06/27/2015 45720 15 RxNorm [facility] 5 13:37:51 Medications Name Sig Start Date [...] Updated DateTime 7 173.355 cm 35.6 kg/m2 436307. 8 g 96 /min 118 mm[Hg] 74 mm[Hg] Danae hicks, [facility] 7 13:41:58 Date Recorded Body height Body mass index (BMI) Body weight Heart rate Systolic blood pressure Diastolic blood pressure Provider Name and Address Organization Details Last Updated DateTime 8 173.355 cm 36 kg/m2 899106. 38 g 76 /min 120 mm[Hg] 70 mm[Hg] Nelia cornell, [facility] 8 09:41:23 Date Recorded Body height Body mass index (BMI) Body weight Heart rate Systolic blood pressure Diastolic blood pressure Provider Name and Address Organization Details Last Updated DateTime 9 173.355 cm 37.3 kg/m2 400631. 72 g 80 /min 120 mm[Hg] 80 mm[Hg] Chelsy Mcknight [facility] 9 15:33:41 Date Recorded Body height Body mass index (BMI) Body weight Heart rate Systolic blood pressure Diastolic blood pressure Provider Name and Address Organization Details Last Updated DateTime 9 173.355 cm 36.7 kg/m2 209328. 95 g 88 /min 110 mm[Hg] 70 mm[Hg] Ashley Victoria LPN [facility] 9 08:02:31 Date Recorded Body height Body mass index (BMI) Body weight Heart rate Systolic blood pressure Diastolic blood pressure Systolic blood pressure Diastolic blood pressure Systolic blood pressure Diastolic blood pressure Provider Name and Address Organization Details Last Updated DateTime 9 173.99 cm 36.1 kg/m2 651035. 46 g 64 /min 130 mm[Hg] 84 mm[Hg] 138 mm[Hg] 88 mm[Hg] 130 mm[Hg] 86 mm[Hg] Irineo López [facility] 9 11:55:02 Social History Question Answer Notes LastModified by Organizat ion Details LastModified Time Tobacco Smoking Status Former Smoker quit smoking 201207/31/16 Avani Prieto NP [address] [place] [address], [address], [facility] 06/27/2015 13:59:13 Do You Have An Advance Directive? 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 Family History Relationship [...] 02:22:34 Tdap 10/10/2014 completed Lima Medina LPN [facility] 06/27/2015 13:57:00 Past Encounters Encounter ID Performer Location Encounter Start Date Encounter Closed Date Diagnosis/Indication Diagnosis SNOMED-CT Code Diagnosis ICD10 Code Diagnosis Note [id number] MEGAN Fu, [facility], OFFICE [address] [place] [address] 06/27/2015 13:27:42 06/27/2015 14:21:39 Adult health examination 090346361 see Risk Assessment and Lifestyle Change Counseling section above Counseling [id number] Eczema 32514033 Anxiety 21871155 continu e to work on stress management . Playing guitar, managing stress away from home [id number] MEGAN Fu, [place], OFFICE [address] [place] [address] 10/10/2015 09:59:04 10/10/2015 10:33:51 Anxiety 69868839 F41.9 continue to work on stress management . Playing [employer], managing stress away from home Insomnia 593854517 G47.0 0 [id number] Avani Prieto NP , [facility], OFFICE [address] [place] [address] 03/26/2016 09:50:36 03/26/2016 10:47:30 Anxiety 10316934 F41.9 treated since 2013, long history of panic attacks. 10 tabs of lorazepam over the last 6 months. 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 no daytime sleepiness [id number] Jenn Alford MD , [facility], OFFICE [address] [place] [address] 07/31/2016 14:06:31 07/31/2016 14:35:19 Tick bite without infection 460924633 W57.XXXA Yesterday you were noted to have [...] both, and contact us if that occurs. [id number] Avani Prieto NP , [facility], OFFICE [address] [place] [address] 08/22/2016 15:51:46 08/22/2016 16:38:03 Adult health examination 296648975 Z00.00 see Risk Assessment and Lifestyle Change Counseling section above Counseling 887672553 Z71 .9 Irritable bowel syndrome with diarrhea 736994599 K58.0 will try eliminatio n diet Eczema 26878215 L30.9 stable. triggered by stress and cold weather Anxiety 43135512 F41.9 significan tly improved with job change. no recent panic attacks. doing well off citalopram Insomnia 193837262 G47.0 0 ok to continue trazodone. ok to taper off as needed. work on sleep hygiene Obesity 546361456 E66.9 work up to 45 minutes of exercise most days of the week. weight loss 1-2lb a month. follow up in 2-3 months to check in [id number] Avani Prieto NP , [facility], OFFICE [address] [place] [address] 12/17/2016 11:46:38 12/17/2016 12:14:11 Obesity 865616750 E66.9 work up to 45 minutes of exercise most days of the week. weight loss 1-2lb a month. Insomnia 788896321 G47.0 0 Snoring 70231643 R06.83 snoring with daytime sleepiness . will work on weight loss and sleep hygiene. pt will consider sleep study. epworth scale 11 [id number] MEGAN Fu, [facility], OFFICE [address] [place] [address] 09/03/2017 11:28:27 09/03/2017 12:01:09 Anxiety 49668834 F41.9 restart citalopram Insomnia 077811485 G47.0 0 lorazepam sparingly for anxiety. try low dose seroquel for sleep [id number] Avani Prieto NP , [facility], OFFICE [address] [place] [address] 10/02/2017 13:31:53 10/02/2017 14:10:45 Adult health examination 211318075 Z00.00 see Risk Assessment and Lifestyle Change Counseling section above Counseling 070363607 Z71 .9 Snoring 98426564 R06.83 snoring with daytime sleepiness . will work on weight loss and sleep hygiene. will get sleep study. epworth scale 9 Irritable bowel syndrome with diarrhea 101222936 K58.0 will work on diet and consider seeing a nutritioni st Obesity 970746702 E66.9 working on weight loss with regular exercise and diet changes Anxiety 64314264 F41.9 improved with citalopram 10mg daily. very occasional lorazepam as needed Active or passive immunization 635814142 Z23 Insomnia 745125165 G47.0 0 okay to try half tab of seroquel as needed for sleep. continue working on sleep hygiene with your therapist [id number] MEGAN Fu, [facility], OFFICE [address] [place] [address] 02/18/2018 09:33:27 02/18/2018 10:03:55 Anxiety 90034914 F41.9 not currently taking citalopram . lorazepam 3 times in the last couple weeks with significan t stress. he avoids taking this. plans to see his therapist every 1-2 weeks Sleep apnea 54500010 G47 .30 sleep med follow up next week to discuss CPAP Obesity 043236471 E66.9 working on weight loss with regular exercise and diet changes Irritable bowel syndrome with diarrhea 497144932 K58.0 stable. worse with stress Insomnia 810229940 G47.0 0 trazodone as needed for sleep OR okay to try half tab of seroquel as needed for sleep. not to take together. continue working on sleep hygiene with your therapist [id number] MEGAN Fu, [facility], OFFICE [address] [place] [address] 10/30/2018 15:11:41 11/02/2018 11:18:56 Anxiety 34357002 F41.9 worse lately. no clear trigger. will restart citalopram and get back to therapy, occasional lorazepam prn. will do trial of hydroxyzin e prn. not to take with lorazepam or trazodone Sleep apnea 97594164 G47 .30 CPAP Insomnia 490825653 G47.0 0 trazodone as needed for sleep OR hydroxyzin e 50mg. continue working on sleep hygiene. Obesity 603961946 E66.9 working on weight loss with regular exercise and diet changes. see nutritioni st with your fiance [id number] MEGAN Fu, [facility], OFFICE [address] [place] [address] 03/03/2019 07:54:17 03/03/2019 08:32:53 Insomnia 846853824 G47.00 trazodone as needed for sleep. continue working on sleep hygiene. Anxiety 65659721 F41.9 worse lately. with school graduation and wedding coming up. he has started back with his therapist. we discussed lorazepam is not a good fpc medication discussed addiction potential and connection s with dementia. will use sparingly for now. note given for travel. follow up for wellness visit after your wedding and may consider maintenanc e med like buspar [id number] Avani Prieto NP , [facility], OFFICE [address] [place] [address] 04/28/2019 10:54:02 04/28/2019 11:57:42 Adult health examination 075056151 Z00.00 see Risk Assessment and Lifestyle Change Counseling section above Counseling 141299340 Z71 .9 Depression screening 171 002413 Z13.89 depression screening tool administer ed, entered into emr, scored and discussed, time greater than 7.5 minutes. negative Testicular mass 64519980 N50.89 x1 year, no change. will get u/s Elevated blood-pressure reading without diagnosis of hypertension 932819830 R03.0 elevated in the office today. pt reports high anxiety related to almost getting into a car accident this morning. will work on stress reduction and relaxation . follow up in 1-2 weeks at [facility] clinic Insomnia 284508580 G47.0 0 trazodone as needed for sleep. continue working on sleep hygiene. Sleep apnea 92537534 G47 .30 CPAP Anxiety 59868706 F41.9 get back in with therapist. very [...] Ramon Member ID Guarantor Name 10/02/2017 1 [facility] [employer] - DIRECT CONNECTORCARE TYPE III (HMO) Guille Young [id number] Guille Young 02/18/2018 1 [facility] [employer] - DIRECT CONNECTORCARE TYPE III (HMO) Guille Young [id number] Guille Young 10/30/2018 1 [facility] - WELLFLEET - CIGNA (PPO) Guille Young [id number] Guille Young 03/03/2019 1 [facility] - WELLDORCASEET - CIGNA (PPO) Guille Young [id number] Guille Young 04/28/2019 1 [facility] - [place]LL[place]OR[place] - CIGNA (PPO) Guille Young [id number] Guille Young Notes Date Note Type Note [...] do a sleep study Avani Prieto NP [address] [place], [address], [facility] 10/02/2017 14:13:13 8 text/html 33yo M presents to follow up anxiety and sleep- 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 lack of time is hard. impacting his [...] on break from school Avani Prieto NP [address] [place], [address], [facility] 02/18/2018 10:10:46 9 text/html 33yo M presents [...] one- stress eating. interested in seeing a rn wound - wants to restart citalopram. anxiety gets worse when restarting then feels blurry all before getting better in a week or so. does not decreased libido. wants to restart anyway. eventually wants to be off meds NUVIA- CPAP 5-6 nights a week Avani Prieto NP [address] [place], [address], [facility] 10/30/2018 20:13:52 9 text/html 34yo F presents for anxiety/depression follow up- he feels his mood has been good but his anxiety has been worse- just graduated and his wedding is in 10 days- wedding is in [place]- then to [place] [employer]. needs letter to okay his medication- started [...] alcohol- no drug use Avani Prieto NP [address] [place], [address], [facility] 03/03/2019 13:17:59 9 text/html Physical Exam/MaleReported bypatient.PHAPatient [...] lost job, looking for a job in [place]- sleep apnea: cpap- noticed lump in scrotum a year ago. no pain, no change Avani Prieto NP [address] [place] [address], [address], [facility] 04/28/2019 14:49:19
--- OUTSIDE RECORDS SUMMARY | 2025-03-01 08:57 | XMS_ITS | Data Portability ---
Author Organization [facility] Address [address] [place] [address] Assessment No assessment recorded. Plan of Treatment Reminders Order Date Submit Date Provider Last Modified By Organization Details Last Modified Time Details Appointments None recorded. Lab rapid strep group A, throat 2022 023 [email or web address] _gracie sandoval, [address] [place] [address], [address], 10:03:30 Referral None recorded. Procedures None recorded. Surgeries None recorded. Imaging None recorded. Medication Orders clindamycin HCl 300 mg capsule 2022 023 [email or web address] [id number], [address] [facility] [facility] [place], [address], 10:05:59 Patient TargetsNo targets recorded. Patient Instructions Encounter Date Encounter Id Patient Instructions Last Modified By Organization Details Last Modified Time 02/17/2023 [id number] strep throat: care instructions eal Not available 02/17/2023 10:03:45 Reason for Referral None Reported. Results Created Date Observation Date Name Description Value Unit Range Abnormal Flag Note LastModifiedBy Organization Detail LastModifiedTime 02/18/2002/17/2023 rapid strep group A, throa t Unknown Analyte Normal = Negati ve Not Available _bertha r[address], [address], 02/17/2023 09:33:50 02/18/2002/17/2023 rapid strep group A, throa t Unknown Analyte positi ve Not Available [facility] [address] [facility], [place], [address], 02/17/2023 09:33:50 Result Notes None recorded. Problems Name Problem SNOMED Code Status Onset Date Resolution Date Notes Provider Name and Address Organization Details Recorded Time Insomnia 641924964 Active 023 IRIS COUVERTADDI null, PA - [facility] 3 09:33:04 Anxiety 60957624 Active 023 IRIS COUVERTIER null, PA - [facility] 3 09:33:11 Problem Notes None recorded. Medical Equipment None Reported. Allergies Allergen ID Allergen Name Allergen Category Reaction Reaction Severity Criticality Documentation Date Start Date Code Code System Note Provider Name and Address Organization Details Recorded Time 635613 Product containin g penicilli n (product) medicatio n Not available Not available Not available 02/17/2023 24529 8001 SNOMED IRIS COUVERTIE R null, PA - [facility] 3 09:32:24 000221 amoxicill in medicatio n Not available Not available Not available 02/17/2023 723 RxNorm IRIS COUVERTIE R null, PA - [facility] 3 09:32:31 713427 azithromy gilbert medicatio n Not available Not available Not available 02/17/2023 47587 RxNorm IRIS COUVERTIE R null, PA - [...] Updated DateTime 3 177.8 cm 35.9 kg/m2 613469. 09 g 97.8 [degF] 18 /min 99 /min 98 % 98 % 131 mm[Hg] 85 mm[Hg] SOM Monroe PA - [facility] 09:35:01 Social History Question Answer Notes LastModified by Organizat ion Details LastModified Time Tobacco Smoking Status Former Smoker SOM lemus PA - [facility] 02/17/2023 09:33:39 What Is Your Water Source? City Information not available 02/17/2023 What Is Your Heat Source? Other Information not available 02/17/2023 Have You Had Direct Contact, Or Contact During Intimacy, With Monkeypox Rash, Scabs, Or Body Fluids From A Person With Monkeypox? No Information not available 02/17/2023 Have You Recently Traveled Abroad? No Information not available 02/17/2023 Sex: Unknown Functional Status Question Answer Note LastModified by Organizat ion Details LastModified Time Do you use any illicit or recreational drugs? No Information not available 02/17/2023 What is your level of alcohol consumption? Occasional Information not available 02/17/2023 Mental Status None recorded. Family History Relationship [...] SNOMED-CT Code Diagnosis ICD10 Code Diagnosis Note [id number] [address] [place] [address] 07/05/2020 10:05:18 07/05/2020 11:32:07 [id number] Lilian Ansari MD [address] [place] [address] 02/17/2023 08:14:40 02/17/2023 10:07:13 Streptococcal sore throat 23529401 J02.0 Please follow up with PCP or [...] Recorded Advance Directives Directive None Recorded Payers Insurance Date Sequence Insurance Name Policy Number Policy Ramon Covered Member ID Ramon Member ID Guarantor Name 02/17/2023 1 [facility] [id number] Guille Young [id number] Guille Young 02/17/2023 1 [facility] [id number] Guille Young [id number] Guille Young Notes Date Note Type Note Provider Name and Address Organization Details Recorded Time 02/17/2023 text/html Sore throat[facility] ale[facility] Severity:moderate Quality:sharp Associated Symptoms:no cough; no sputum production; no shortness of breath; no wheezing; no sinus pain; no vomiting; no nausea; No hoarseness;sore throat;fever Modifying Factors:exposed to Strep household * Lilian Ansari MD [facility] [place], [address], [place] - [facility] 02/17/2023 10:06:40
[2025-03-01 10:23] LABS: Hematocrit 41.6 % (42.0-52.0); Hemoglobin 14.7 g/dl (14.0-18.0); Mean Corpuscular HGB Conc 35.3 g/dl (31.0-36.0); Mean Corpuscular Hemoglobin 28.7 pg (27.0-33.0); Mean Corpuscular Volume 81.3 fL (80.0-98.0); Mean Platelet Volume 9.8 fL (9.4-12.4); Platelet Count 278 X10*3/uL (160-400); Red Blood Count 5.12 X10*6/uL (4.60-5.80); Red Cell Distribution Width 12.3 % (11.0-16.0); White Blood Count 6.7 X10*3/uL (4.8-10.8)
[2025-03-01 10:54] LABS: Alanine Aminotransferase 32 U/L (0-40); Albumin Level 4.5 g/dL (3.5-5.0); Alkaline Phosphatase 64 U/L (39-117); Anion Gap 11 (12-20); Aspartate Amino Transferase 28 U/L (5-37); Bilirubin Total 0.5 mg/dL (0.0-1.0); Blood Urea Nitrogen 12 mg/dL (9-16); Calcium 8.9 mg/dL (8.4-10.2); Carbon Dioxide 27 mmol/L (22-29); Chloride 105 mmol/L (96-108); Cholesterol 141 mg/dL (<200); Estimated Glomerular Filt Rate > 60; Glucose Fasting 89 mg/dL (60-99); HDL Cholesterol 36 mg/dL (>40); LDL Cholesterol Calculated 83 mg/dL (<100); Potassium 3.6 mmol/L (3.3-5.1); Sodium 139 mmol/L (135-145); Total Protein 7.5 g/dL (6.5-8.0); Triglycerides 111 mg/dL (<150)
== END 2025-03-01 08:40 | disposition home or self-care (01) ==
LOC: HO.HMGCLDS 08:39
PROVIDERS: PCP Physician Assistant; Visit Provider Physician Assistant
DX: E66.812 Obesity, class 2 (principal); Z13.1 Encounter for screening for diabetes mellitus
CPT/HCPCS: 36415; 80053; 80061; 85027

== ENCOUNTER 2025-03-08 10:28 | Outpatient (AMB) | payer BC, SELFPAY ==
--- NOTE | 2025-03-08 10:32 | A.OFFPC_ITS ---
Vital Signs 03/08/25 10:35 Height 5 ft 9 in Weight 245 lb 4 oz BMI 36.2 BP 128/78 Blood Pressure Location Lt brachial Position Sitting Pulse 88 Pulse Source Pulse Oximeter Temp 97.1 F Temp Source Temporal Artery Scan Pulse Oximetry (%) 96 Oxygen Delivery Method Room Air Intake Visit Reasons: f/u weight check -labs Map Mounter Required: No Accompanied by: Self / Same As Patient Allergies amoxicillin [AMOXICILLIN] Allergy (Unknown, Verified 03/08/25 10:50) HIVES azithromycin Allergy (Unknown, Verified 03/08/25 10:50) hives penicillin V Allergy (Unknown, Verified 03/08/25 10:50) hives Medication List - Last Reconciled 03/08/25 by Angelito Bustillo PA-C citalopram (Celexa) 20 mg PO DAILY 90 days diazepam (Valium) 2 mg PO DAILY lorazepam 0.5 mg PO DAILY PRN 14 days tirzepatide (weight loss) (Zepbound) 7.5 mg (0.5 mL) subcut QWEEK 4 weeks tirzepatide (weight loss) (Zepbound) 10 mg (0.5 mL) subcut QWEEK 4 weeks tramadol 50 mg PO Q8H PRN trazodone 100 mg (2 x 50 mg) PO BEDTIME 30 days triamcinolone acetonide 0.1% 1 appl topical BID 15 days Tobacco use date assessed: 12/09/24 Dental Screening Dental Screen Date: 12/09/24 HPI f/u weight check -labs HPI Details Patient is a 40-year-old male here today for follow-up visit. Patient has a past medical history significant for generalized anxiety disorder, obesity and insomnia. Concern--> continues to have muffled hearing out of his left ear to the point where he needs to turn his head to be able to hear people talking to him. He is interested in seeing an ENT for evaluation. PLAN: Will send for hearing test .. Generalized anxiety disorder: He is now speaking with his mental health therapist on a regular basis. He has restarted his SSRI therapy He has drastically reduced his alcohol intake and has really helped him with his sleep and anxiety. He is using trazodone 50-100 mg at night with good effect. He has been reduced his benzodiazepine frequency of use to only as p.r.n.. He reports his panic attacks have reduced in frequency drastically. .. Obstructive sleep apnea: Uses CPAP machine nightly basis with decent affect. He continues on GLP 1 though has not noted any difference in his obstructive sleep apnea. .. Class 2 obesity: Patient continues on GLP 1 and has noted significant improvement in his health and has lost a significant amount of weight. He has lost more than 5% of his total body weight. Starting weight 263 lb . Today's weight at 245 lb, BMI at 36.2 He reports he has been more physically active as well in making dietary changes. Laboratory Tests 03/01/25 08:45 RBC 5.12 Creatinine 0.80 Fasting Glucose 89 Cholesterol 141 LDL Cholesterol, C alc 83 PFSH Surgical History No pertinent past surgical history Family History Father No problems noted. Mother Mental health disorder Sister Substance use disorder Mental health disorder Maternal Grandmother Mental health disorder Maternal Grandfather Mental health disorder Social History Housing: House Alcohol intake: current Alcohol intake frequency: a few times a week Patient Tobacco Use Status: Former Tobacco user e-Cigarette/Vaping Use: Never Used service: No Current occupational status: employed Current occupation: [employer] Cognitive needs: No Hearing needs: No Vision needs: No Questionnaire PHQ-9 Over the last 2 weeks, how often have you been bothered by any of the following problems? 1. Little interest or pleasure in doing things: not at all 2. Feeling down, depressed, or hopeless: not at all 3. Trouble falling or staying asleep, or sleeping too much: several days 4. Feeling tired or having little energy: several days 5. Poor appetite or overeating: not at all 6. Feeling bad about yourself - or that you are a failure or have let yourself or your family down: not at all 7. Trouble concentrating on things, such as reading the newspaper or watching television: not at all 8. Moving or speaking so slowly that other people could have noticed. Or the opposite - being so fidgety or restless that you have been moving around a lot more than usual: not at all 9. Thoughts that you would be better off or of hurting yourself in some way: not at all Total score: 2 Depression Screening Interpretation: Negative Depression Screening Done: Yes 55350 - PHQ-9 Billing: Yes Source: Developed by Drs. Ahmet Bañuelos, Parvin Poe, Burak Lizarraga and colleagues, with an educational ugo from [employer]. Thrive Questionnaire Date Thrive assessed: 03/08/25 I am a: Patient What is your living situation today?: I have a steady place to live Within the past 12 months, did the food you bought not last and you didn't have the money to get more?: Never true Within the past 12 months, did you worry whether your food would run out before you got money to buy more?: Never true Do you have trouble paying for medicines?: No Do you have trouble getting transportation to medical appointments?: No Do you have trouble paying your heating and electricity bill?: No Do you have trouble taking care of your child, family member or friend?: No Do you have trouble with day-to-day activities such as bathing, preparing meals, shopping, managing finances, etc.?: No Are you currently unemployed and looking for a job?: No Are you interested in more education?: No Please select the resources that you would like help with: None Currently or been in a relationship where the following occur: No concerns reported THRIVE Score: 0 AUDIT C Alcohol Use Questionnaire (AUDIT-C) 1. How often do you have a drink containing alcohol?: Monthly or less 2. How many drinks containing alcohol do you have on a typical day when you are drinking?: 3 or 4 3. How often do you have six or more drinks on one occasion?: Less than monthly Total Score: 3 ANGI-7 AMB Questionnaire ANGI-7 Date ANGI - 7 assessed: 03/08/25 Feeling nervous, anxious, or on edge: 1 = Several days Not being able to stop or control worryin = Not at all Worrying too much about different things: 1 = Several days Trouble relaxin = More than half the days Being so restless that it is hard to sit still: 1 = Several days Becoming easily annoyed or irritable: 3 = Nearly every day Feeling afraid as if something awful might happen: 0 = Not at all Total ANGI-7 score (0-4 normal; 5-9 mild; 10-14 moderate; 15-21 severe): 8 Source: Developed by Drs. Ahmet Bañuelos, Parvin Poe, Burak Lizarraga and colleagues, with an educational ugo from [employer]. ANGI-7 Assessment Billing ANGI-7 Assessment Tool: ANGI-7 Assessment 34227 Review of Systems Const Denies headache(s) Eyes Denies loss of vision ENT Denies vertigo, Denies dizziness, Denies headache(s) and Denies sore throat Card Denies chest pain, Denies leg edema and Denies lightheadedness Resp Denies cough, Denies hemoptysis and Denies wheezing GI Denies abdominal pain, Denies melena, Denies constipation, Denies diarrhea and Denies vomiting Denies dysuria, Denies urinary frequency and Denies urinary urgency Musc Denies arthralgias, Denies joint swelling, Denies numbness and Denies tingling Neuro Denies Abnormal speech present, Denies behavioral changes, Denies vertigo, Denies dizziness, Denies headache(s), Denies loss of vision, Denies memory loss, Denies numbness and Denies tingling Psych Denies anxiety, Denies behavioral changes, Denies depression, Denies memory loss and Denies panic attacks Ronnie/Lymph Denies easy bleeding and Denies easy bruising Aller/Immun Denies wheezing Physical exam (Primary Care) Vital Signs: Last Vital Signs Temp 97.1 F 03/08/25 10:35 Pulse 88 03/08/25 10:35 BP 128/78 03/08/25 10:35 Pulse Ox 96 03/08/25 10:35 Oxygen Delivery Method Room Air 03/08/25 10:35 BMI result Body Mass Index 36.2 BMI Assessment/Plan discussion: High BMI High, discussed plan: lifestyle, weight reduction, dietary and physical activity Tobacco/Smoking Status: Tobacco use Status Tobacco use date assessed 12/09/24 03/08/25 10:35 Patient Tobacco Use Status Former Tobacco user 03/08/25 10:35 e-Cigarette/Vaping Use Never Used 03/08/25 10:35 PHQ-9: PHQ-9 Score PHQ-9: Total score 2 03/08/25 10:55 Depression Screening Interpretation: Negative Thrive Assessment: Date of Thrive Assessment Date Thrive assessed 03/08/25 03/08/25 10:35 Currently or been in a relationship where the following occur: No concerns reported Const General: healthy appearing, no acute distress, alert and awake Nutritional Appearance: well nourished Orientation/consciousness: oriented to person, oriented to place and oriented to time HENMT Ears: TM's normal bilaterally General nose exam: Normal nasal mucous membranes and turbinates present Eyes Conjunctivae: conjunctivae normal Sclerae: sclerae normal Pupils: Equal, round and reactive pupils present Neck Neck: Yes no lymphadenopathy and Yes no JVD Thyroid: Thyroid normal Carotids: no bruits Resp Effort & Inspection: normal respiratory effort and not tachypneic Auscultation: no crackles, no rales, no rhonchi and no wheezes Cardio Rate: regular rate Rhythm: regular rhythm Heart sounds: no murmurs and normal S1 and S2 GI Palpation (GI): Soft to palpation, nontender, no hepatomegaly and no splenomegaly Auscultation: normal bowel sounds Skin General skin exam: no rashes or lesions noted and dry skin Neuro General: oriented to person, oriented to place and oriented to time Cranial nerves: Yes Equal, round and reactive pupils present Speech: No Abnormal speech present Gait exam (Neuro): Normal gait present Motor exam (neuro): no tremor noted Extrem Right upper extremity: full ROM Left upper extremity: full ROM Right lower extremity: full ROM; no edema Left lower extremity: full ROM; no edema Psych Mental Status: mental status grossly normal Speech and movement: Normal speech and movement present Affect: normal affect Attitude: cooperative Thought process: Normal thought process present Coding Level of Care Code Est Pt Level 4 (47501) Diagnoses ANGI (generalized anxiety disorder) F41.1 Class 2 obesity E66.812 NUVIA (obstructive sleep apnea) G47.33 Hearing loss of left ear, unspecified hearing loss type H91.92 Hearing loss type: unspecified Additional Codes ANGI-7 Assessment Billing - ANGI-7 Assessment Tool: ANGI-7 Assessment 98692 ([id number]) PHQ-9 - 67335 - PHQ-9 Billing: Yes ([id number]) Assessment & Plan Assessment & Plan (1) ANGI (generalized anxiety disorder): Code(s): F41.1 - Generalized anxiety disorder Category: Medical Plan: Patient reports his underlying anxiety is very well controlled with current dose of Celexa and p.r.n. use of his lorazepam 0.5 mg. He usually uses lorazepam at night to help him sleep though has not had any panic attacks in quite some time. He now is working in a different job to which he enjoys as well. (2) Class 2 obesity: Code(s): E66.812 - Obesity, class 2 Category: Medical Plan: Continues to lose weight on GLP 1. He would like to increase dose for added benefit of more weight loss. Has not noted any improvement in his obstructive sleep apnea. he also reports better eating habits and been more physically active. He has no particular intolerable side effects to GLP 1 dose and will like to continue up titrating. (3) NUVIA (obstructive sleep apnea): Code(s): G47.33 - Obstructive sleep apnea (adult) (pediatric) Category: Medical Plan: Patient continues to use CPAP on a nightly basis. Fortunately has not been able to lose much weight. He wonders if his enlarged tonsils are the reason for his obstructive sleep apnea. He is interested in seeing ENT surgeon for evaluation. (4) Left ear hearing loss: Code(s): H91.92 - Unspecified hearing loss, left ear Category: Medical Qualifiers: Hearing loss type: unspecified Qualified Code(s): H91.92 - Unspecified hearing loss, left ear Plan: Has had muffled hearing over his left ear for a few months now. Has been using antihistamine nasal sprays though have not been effective on regaining his hearing. Patient interested in getting a hearing exam possibly seeing ENT specialty for evaluation Orders: Referrals Ear/Nose/Throat Referral H91.92 - Unspecified hearing loss, left ear Speech and Hearing Referral H91.92 - Unspecified hearing loss, left ear Medications: New tirzepatide (weight loss) (Zepbound) 12.5 mg (0.5 mL) subcut QWEEK 2 mL 1RF 4 weeks E66.812 - Obesity, class 2, G47.33 - Obstructive sleep apnea (adult) (pediatric) Discontinued diazepam (Valium) bring with you to office day of procedure Discontinued Reason: Doctor's Order 2 mg PO DAILY 2 tabs 0RF anxiety R45.89 - Other symptoms and signs involving emotional state
[2025-03-08 10:35] VITALS: BP 128/78; PULSE 88; TEMP 36.2; O2SAT 96; BMI 36.2
--- OUTSIDE RECORDS SUMMARY | 2025-03-08 11:15 | XMS_ITS | Data Portability ---
Author Organization [facility], , [facility] Address [address] [place] [address] Care Team Providers Care Dental Office Manager Name Role Phone ARY WILSON BRAKE HOLDER OTHER AVANI PRIETO Primary Care Provider Assessment [...] testing and management as warranted 2016 017 [facility], [address] [facility], [facility] [address], [place], [address], 8 05:01:13 Procedures None recorded. Surgeries None recorded. Imaging US, scrotum - 34yo M with firm mobile mass left scrotum x1 year. non-tender 2018 019 [facility] (Imaging), [address], [place] Akbar, [address], 9 10:29:06 Medication Orders trazodone 50 mg tablet 2018 019 INTERFACE [id number], [address] [place], [address], 9 08:32:45 lorazepam 1 mg tablet 2018 019 INTERFACE [id number], [address] [facility] [place], [address], 9 08:32:45 trazodone 50 mg tablet 2018 019 INTERFACE [id number], [address] [place], [address], 9 16:10:31 hydroxyzin e HCl 25 mg tablet 2018 019 [email or web address] [id number], [address] [place], [address], 9 08:19:42 citalopram 20 mg tablet 2018 019 [email or web address] [id number], [address] [place], [address], 9 08:00:01 Patient TargetsNo targets recorded. Patient Instructions Encounter Date Encounter Id Patient Instructions Last Modified By Organization Details Last Modified Time 10/02/2017 [id number] Well Visit, Ages 18 to 65: Care [...] - continue citalopram - consider seeing a oyster cultivator - regular dental and eye exams - flu vaccine today - follow up in 3-4 months - physical in 1 year [email or web address] Not available 10/02/2017 14:13:03 02/18/2018 [id number] After a discussi on of treatment options, [...] needed [email or web address] Not available 02/18/2018 10:10:14 10/30/2018 [id number] After a discussi on of treatment options, [...] to take with trazodone - schedule with oyster cultivator - follow up at wellness visit in December [email or web address] Not available 10/30/2018 20:13:25 New medication w as discussed with patient including risks, benefits ,possible and expected side effects. Patient understands and is willing to begin medication as prescribed. [email or web address] Not available 10/30/2018 20:13:31 04/28/2019 [id number] Well Visit, Ages 18 to 65: Care [...] [facility], Encounter Date: 10/02/2017 Test Grader/dietitian Refer ral for Obesity 33yo yo M with obesity and stress eating. wants to work on diet with fihari Referring Physician: Avani Prieto [facility], Encounter Date: 10/30/2018 Results Created Date Observation Date Name Description Value Unit Range Abnormal Flag Note LastModifiedBy Organization Detail LastModifiedTime 11/28/19 18 11/25/2017 polys omnog gogo No observ ation record ed. [facility] [address] [place], [address], 11/28/2017 15:17:28 03/01/20 18 polys omnog goog No observ ation record ed. [facility] [address] [place] [address], [address], 03/02/2018 17:21:01 Result Notes None recorded. Problems Name Problem SNOMED Code Status Onset Date Resolution Date Notes Provider Name and Address Organization Details Recorded Time Eczema 81783262 Active since teens Avani Prieto NP [address] [place], [place] [address]J[place], [address], [facility] 5 10:31:30 Anxiety 99201688 Active treated since 2013, long history of panic attacks [place], [address], [facility] 5 10:49:48 Irritabl e bowel syndrome with diarrhea 008733191 Active 2015 Avani Prieto NP [address] [facility] [place], [address], [facility] 6 16:37:25 Obesity 080115768 Active 2015 Avani Prieto NP [address] [place], [place] [address]Jj, [place], [address], [facility] 6 16:39:33 Sleep apnea 62751143 Active 2017 dx 11/2017 Avani Prieto NP [address] [place], [place] [address] [place], [address], [facility] 8 15:17:04 Obstruct timo sleep apnea syndrome 86986367 Completed 201702/18/2018 fit for CPAP 02/2018 Removal Reason: duplicate Avani Prieto NP [address] [place] [address] Jj Watson, [place], [address], [facility] 8 10:03:06 Insomnia 139998924 Active 2017 Avani Prieto NP [address] [place], [place] [address]Jj, [place], [address], [facility] 8 10:03:33 Problem Notes None recorded. Procedures Surgical History Date Name Laterality Status Provider Name and Address Organization Details Recorded Time 7 [place] Sleepiness Scale completed Avani Prieto NP [address] [place] [address], [address], [facility] 10/02/2017 13:58:31 7 [place] Sleepiness Scale completed Avani Prieto NP [address] [place] [address], [address], [facility] 12/17/2016 12:10:15 6 [place] Sleepiness Scale completed Avani Prieto NP [address] [place] [address], [address], [facility] 03/26/2016 10:31:49 Imaging Results None recorded. Procedure Notes None recorded. Medical Equipment None Reported. Allergies Allergen ID Allergen Name Allergen Category Reaction Reaction Severity Criticality Documentation Date Start Date Code Code System Note Provider Name and Address Organization Details Recorded Time 426722 amoxicill in medicatio n rash Not available Not available 06/27/2015 723 [facility] 5 13:37:51 060153 erythromy gilbert medicatio n Not available Not available Not available 06/27/2015 4053 RxNorm [facility] 5 13:37:51 809274 Product containin g penicilli n (product) medicatio n Not available Not available Not available 06/27/2015 71449 8001 SNOMED [facility] 5 13:37:51 653647 egg extract food,medi cation Not available Not available Not available 06/27/2015 44373 15 RxNorm [facility] 5 13:37:51 Medications Name Sig Start [...] index (BMI) Body weight Heart rate Systolic And Diastolic Provider Name and Address Organization Details Last Updated DateTime 10/30/2018 173.355 cm 37.3 kg/m2 948645.7 2 g 80 /min 120/80 mm[Hg] Chelsy [facility] 10/30/2018 15:33:41 Date Recorded Body height Body mass index (BMI) Body weight Heart rate Systolic And Diastolic Provider Name and Address Organization Details Last Updated DateTime 02/18/2018 173.355 cm 36 kg/m2 233877.3 8 g 76 /min 120/70 mm[Hg] Nelia Miller [facility] 02/18/2018 09:41:23 Date Recorded Body height Body mass index (BMI) Body weight Heart rate Systolic And Diastolic Provider Name and Address Organization Details Last Updated DateTime 03/03/2019 173.355 cm 36.7 kg/m2 400906.9 5 g 88 /min 110/70 mm[Hg] Ashley Victoria ANIMAL TREATMENT INVESTIGATOR [facility] 03/03/2019 08:02:31 Date Recorded Body height Body mass index (BMI) Body weight Heart rate Systolic And Diastolic Systolic And Diastolic Systolic And Diastolic Provider Name and Address Organization Details Last Updated DateTime 9 173.99 cm 36.1 kg/m2 870210. 46 g 64 /min 130/84 mm[Hg] 138/88 mm[Hg] 130/86 mm[Hg] Irineo López [facility] 9 11:55:02 Date Recorded Body height Body mass index (BMI) Body weight Heart rate Systolic And Diastolic Provider Name and Address Organization Details Last Updated DateTime 10/02/2017 173.355 cm 35.6 kg/m2 008581.8 g 96 /min 118/74 mm[Hg] Danae Guille ser, RMA [facility] 10/02/2017 13:41:58 Social History Question Answer Notes LastModified by Organizat ion Details LastModified Time Tobacco Smoking Status Former Smoker quit smoking 201207/31/16 Avani Prieto NP [address] [place], [address], [facility] 06/27/2015 13:59:13 Do You Have An Advance [...] 67 [email or web address] Not available 2018 11:40:37 Notes:no [place], prostate cancer does not know if family history of HTN or high cholesteral Medical History Condition Response eczema Y Anxiety Y Allergies Y Immunizations Vaccine Type Date Status Note Provider Nam e and Address Organization Details Recorded Time Influenza, recombinant, quadrivalent, PF 10/02/2017 completed Not Available [facility] 0 02:22:34 Tdap 10/10/2014 completed Lima Medina LPN [facility] 06/27/2015 13:57:00 Past Encounters Encounter ID Performer Location Encounter Start Date Encounter Closed Date Diagnosis/Indication Diagnosis SNOMED-CT Code Diagnosis ICD10 Code Diagnosis Note [id number] Avani Prieto NP , [facility], OFFICE [address] [place] [address] 06/27/2015 13:27:42 06/27/2015 14:21:39 Adult health examination 931745092 see Risk Assessment and Lifestyle Change Counseling section above Counseling [id number] Eczema 32554692 Anxiety 63421497 continu e to work on stress management . Playing [employer] [facility]r, managing stress away from home [id number] Avani Prieto NP , [facility], OFFICE [address] [place] [address] 10/10/2015 09:59:04 10/10/2015 10:33:51 Anxiety 43121586 F41.9 continue to work on stress management . Playing guitar, managing stress away from home Insomnia 006472611 G47.0 0 [id number] Avani Prieto NP , [facility], OFFICE [address] [place] [address] 03/26/2016 09:50:36 03/26/2016 10:47:30 Anxiety 58651945 F41.9 treated since 2013, long history of panic attacks. 10 tabs of lorazepam over the last 6 months. pt usp goal is to manage without meds Allergic rhinitis 829735 04 J30.9 Snoring 37501974 R06.83 will work on weight loss, sleep hygiene, and managing allergies. no daytime sleepiness [id number] Jenn Alford MD FP, [facility], OFFICE [address] [place] [address] 07/31/2016 14:06:31 07/31/2016 14:35:19 Tick bite without infection 895306940 W57.XXXA Yesterday you were noted to have [...] both, and contact us if that occurs. [id number] Avani Prieto NP , [facility], OFFICE [address] [place] [address] 08/22/2016 15:51:46 08/22/2016 16:38:03 Adult health examination 997628339 Z00.00 see Risk Assessment and Lifestyle Change Counseling section above Counseling 387746671 Z71 .9 Irritable bowel syndrome with diarrhea 409902737 K58.0 will try eliminatio n diet Eczema 19345296 L30.9 stable. triggered by stress and cold weather Anxiety 28367190 F41.9 significan tly improved with job change. no recent panic attacks. doing well off citalopram Insomnia 180681912 G47.0 0 ok to continue trazodone. ok to taper off as needed. work on sleep hygiene Obesity 376904963 E66.9 work up to 45 minutes of exercise most days of the week. weight loss 1-2lb a month. follow up in 2-3 months to check in [id number] MEGAN Fu, [facility], OFFICE [address] [place] [address] 12/17/2016 11:46:38 12/17/2016 12:14:11 Obesity 757507934 E66.9 work up to 45 minutes of exercise most days of the week. weight loss 1-2lb a month. Insomnia 471771451 G47.0 0 Snoring 52622887 R06.83 snoring with daytime sleepiness . will work on weight loss and sleep hygiene. pt will consider sleep study. epworth scale 11 [id number] MEGAN Fu, [facility], OFFICE [address] [place] [address] 09/03/2017 11:28:27 09/03/2017 12:01:09 Anxiety 38876451 F41.9 restart citalopram Insomnia 914645781 G47.0 0 lorazepam sparingly for anxiety. try low dose seroquel for sleep [id number] Avani Prieto NP , [facility], OFFICE [address] [place] [address] 10/02/2017 13:31:53 10/02/2017 14:10:45 Adult health examination 350734196 Z00.00 see Risk Assessment and Lifestyle Change Counseling section above Counseling 073941984 Z71 .9 Snoring 63099752 R06.83 snoring with daytime sleepiness . will work on weight loss and sleep hygiene. will get sleep study. epworth scale 9 Irritable bowel syndrome with diarrhea 870900311 K58.0 will work on diet and consider seeing a nutritioni st Obesity 619126001 E66.9 working on weight loss with regular exercise and diet changes Anxiety 21054574 F41.9 improved with citalopram 10mg daily. very occasional lorazepam as needed Active or passive immunization 745972209 Z23 Insomnia 842042015 G47.0 0 okay to try half tab of seroquel as needed for sleep. continue working on sleep hygiene with your therapist [id number] MEGAN Fu, [facility], OFFICE [address] [place] [address] 02/18/2018 09:33:27 02/18/2018 10:03:55 Anxiety 32072082 F41.9 not currently taking citalopram . lorazepam 3 times in the last couple weeks with significan t stress. he avoids taking this. plans to see his therapist every 1-2 weeks Sleep apnea 01591085 G47 .30 sleep med follow up next week to discuss CPAP Obesity 666496317 E66.9 working on weight loss with regular exercise and diet changes Irritable bowel syndrome with diarrhea 081862104 K58.0 stable. worse with stress Insomnia 247439902 G47.0 0 trazodone as needed for sleep OR okay to try half tab of seroquel as needed for sleep. not to take together. continue working on sleep hygiene with your therapist [id number] Avani Prieto NP FP, [facility], OFFICE [address] [place] [address] 10/30/2018 15:11:41 11/02/2018 11:18:56 Anxiety 40791082 F41.9 worse lately. no clear trigger. will restart citalopram and get back to therapy, occasional lorazepam prn. will do trial of hydroxyzin e prn. not to take with lorazepam or trazodone Sleep apnea 21165527 G47 .30 CPAP Insomnia 284195623 G47.0 0 trazodone as needed for sleep OR hydroxyzin e 50mg. continue working on sleep hygiene. Obesity 842955998 E66.9 working on weight loss with regular exercise and diet changes. see nutritioni st with your fiance [id number] Avani Prieto NP FP, [facility], OFFICE [address] [place] [address] 03/03/2019 07:54:17 03/03/2019 08:32:53 Insomnia 704726722 G47.00 trazodone as needed for sleep. continue working on sleep hygiene. Anxiety 84547149 F41.9 worse lately. with school graduation and wedding coming up. he has started back with his therapist. we discussed lorazepam is not a good usp medication discussed addiction potential and connection s with dementia. will use sparingly for now. note given for travel. follow up for wellness visit after your wedding and may consider maintenanc e med like buspar [id number] MEGAN Fu, [facility], OFFICE [address] [place] [address] 04/28/2019 10:54:02 04/28/2019 11:57:42 Adult health examination 769419372 Z00.00 see Risk Assessment and Lifestyle Change Counseling section above Counseling 958313154 Z71 .9 Depression screening 171 714285 Z13.89 depression screening tool administer ed, entered into emr, scored and discussed, time greater than 7.5 minutes. negative Testicular mass 37774291 N50.89 x1 year, no change. will get u/s Elevated blood-pressure reading without diagnosis of hypertension 066317779 R03.0 elevated in the office today. pt reports high anxiety related to almost getting into a car accident this morning. will work on stress reduction and relaxation . follow up in 1-2 weeks at BP clinic Insomnia 959378951 G47.0 0 trazodone as needed for sleep. continue working on sleep hygiene. Sleep apnea 75638228 G47 .30 CPAP Anxiety 47044506 F41.9 get back in with therapist. very [...] Ramon Member ID Guarantor Name 10/02/2017 1 [facility] - DIRECT CONNECTORCARE TYPE III (HMO) Guille Young [id number] Guille Young 02/18/2018 1 [facility] - DIRECT CONNECTORCARE TYPE III (HMO) Guille Young [id number] Guille Young 10/30/2018 1 [facility] - [place] - CIGNA (PPO) Guille Almendarezrochers [id number] Guille Almendarezrochers 03/03/2019 1 [facility] - WELLFLEET - CIGNA (PPO) Guille Almendarezrochers [id number] Guille Almendarezrochers 04/28/2019 1 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 lack of time is hard. impacting his [...] break from school Avani Prieto NP [address] [place], [address], [facility] 02/18/2018 10:10:46 9 text/html 33yo M presents for anxiety follow up- anxiety was worse now seems to be getting a little better- hasn't seen his therapist in a while but plans to go back- no big change in life. graduating in february- getting in March- cut out alcohol at [place] to try to get healthier- working out [...] one- stress eating. interested in seeing a oyster cultivator - wants to restart citalopram. anxiety gets worse when restarting then feels blurry all before getting better in a week or so. does not decreased libido. wants to restart anyway. eventually wants to be off meds NUVIA- CPAP 5-6 nights a week Avani Prieto NP [address] [place], [address], [facility] 10/30/2018 20:13:52 9 text/html 34yo F presents for anxiety/depression follow up- he feels his mood has been good but his anxiety has been worse- just graduated and his wedding is in 10 days- [place] is in [place] [facility]- then to [place] for Honeymoon. needs letter to okay his medication- started [...] alcohol- no drug use Avani Prieto NP [address] [place] [address], [address], [facility] 03/03/2019 13:17:59 9 text/html Physical Exam/MaleReported bypatient.PHAPatient [...] lost job, looking for a job in [employer] and ID- sleep apnea: cpap- noticed lump in scrotum a year ago. no pain, no change Avani Prieto NP [address] [place] [address], [address], [facility] 04/28/2019 14:49:19
== END 2025-03-08 11:12 | disposition home or self-care (01) ==
LOC: HO.HMCH 10:29
PROVIDERS: PCP Physician Assistant; Visit Provider Physician Assistant
DX: H91.92 Unspecified hearing loss, left ear (principal); F41.1 Generalized anxiety disorder; E66.812 Obesity, class 2; Z68.36 Body mass index [BMI] 36.0-36.9, adult; G47.33 Obstructive sleep apnea (adult) (pediatric)

== ENCOUNTER → 2025-03-08 10:28 | Outpatient (BNVA) | payer BC, SELFPAY | PROVIDERS: PCP Physician Assistant; Visit Provider Physician Assistant | DX: F41.1 Generalized anxiety disorder (principal); G47.00 Insomnia, unspecified; G47.33 Obstructive sleep apnea (adult) (pediatric); E66.812 Obesity, class 2; H91.92 Unspecified hearing loss, left ear; R45.89 Other symptoms and signs involving emotional state; Z99.89 Dependence on other enabling machines and devices; Z68.36 Body mass index [BMI] 36.0-36.9, adult | CPT/HCPCS: 96127 ==

== ENCOUNTER 2025-03-23 14:44 | Outpatient (AMB) | payer BC, SELFPAY ==
--- NOTE | 2025-03-23 14:47 | A.OFFVIS_ITS ---
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 Bustillo. He has a past medical history of anxiety, insomnia, and obstructive sleep apnea. He presents to the office today for - vasectomy evaluation Vasectomy evaluation The patient presents for vasectomy consultation.? 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 Patient education has been provided via AUA video, via printed information, r isks of failure, recovery time, bruising and potential pain syndrome have been stressed Discussion today focused on the presence of vasectomy and the risks, benefits and alternatives that are available. Vasectomy as intended as a permanent form of control. Printed information and literature was provided to the patient. Overall there is a one in 2500 failure rate. This can occur at any time after vasectomy. Risks were discussed highlighting hematoma, spermatocele, epididymal congestion, development of sperm antibodies, and development of chronic pain estimated between 1-5%. The procedure was reviewed in detail. Anatomical diagrams of the male genitalia were used to explain the location of the vas deferens. The vas deferens will be transected, the proximal end will be cauterized, a metal clip would be applied to separate the 2 vas deferens ends. It was explained the procedure will be done in the office and takes approximately 10-15 minutes. Less common problems that arise with vasectomy include hematoma, bleeding, allergic reaction to anesthetic, epididymal infection, epididymal congestion, scrotal discomfort, spermatic leak, spermatic granuloma and the possibility of antisperm antibodies. He understands these risks and wishes to proceed. Consent was signed at the office today. He also understands that it takes 12 weeks for sperm to fully clear the system. He will need to provide a semen sample at 12 weeks and if this is not clear a 2nd sample at 16 weeks. Medical clearance to stop using protection will only be provided if he satisfies published criteria for sperm c learance. [facility] Surgical History No pertinent past surgical history Family History Father No problems noted. Mother Mental health disorder Sister Substance use disorder Mental health disorder Maternal Grandmother Mental health disorder Maternal Grandfather Mental health disorder Social History Housing: House Alcohol intake: current Alcohol intake frequency: a few times a week Patient Tobacco Use Status: Former Tobacco user e-Cigarette/Vaping Use: Never Used service: No Current occupational status: employed Current occupation: [employer] Cognitive needs: No Hearing needs: No Vision needs: No Review of Systems Const Denies chills and Denies fever(s) Card Reports no additional complaints and Denies syncope Resp Denies cough GI Denies abdominal pain and Denies heartburn Reports as per HPI and Denies change in libido Neuro Denies syncope Psych Denies change in libido Endo Denies change in libido Physical Exam Const General: cooperative, healthy appearing, comfortable and no acute distress Orientation/consciousness: patient oriented x3 HEENT Face and sinus: Yes normal facial exam Mouth: moist mucous membranes Neck Neck: Yes normal visual inspection, Yes full ROM and Yes trachea midline Chest Chest palpation & inspection: normal inspection of the chest Resp Effort & Inspection: normal respiratory effort, able to speak in complete sentences and no respiratory distress GI Inspection: Yes normal to inspection Back/Spine/Pelvis Cervical Spine: normal cervical lordosis Thoracic/Lumbar Spine: thoracic and lumbar spine normal to inspection Skin General skin exam: no rashes or lesions noted Neuro General: patient oriented x3, gait normal, tone normal and moves all extremities Extrem General: Yes normal to inspection and Yes capillary refill normal Office Procedures Vasectomy 39489 - Vasectomy Office Meds lidocaine (PF) 10 mg/mL (1 %) injection solution Performing Provider: Von Lujan MD [place] [facility] [place] [facility] Administered by: Barbara Gómez RN on 03/23/25 15:07 Dose Route Admin Location Dispensed Lot Number Expiration Date NDC Risk Assessment Analyst 2 mL Infiltration 10 mL Assessment & Plan Assessment & Plan Orders: Orders AMB Vasectomy Today Z30.09 - Encounter for other general counseling and advice on contraception Coding CPT Codes Office Procedure - CPT: 53937 - Vasectomy ([id number])
--- OUTSIDE RECORDS SUMMARY | 2025-03-23 16:56 | XMS_ITS | Data Portability ---
Author Organization [facility], , [facility] Address [address] [place] [address] Care Team Providers Care Cover Creaser Name Role Phone ARY WILSON DENTAL LABORATORY TECHNICIAN APPRENTICE OTHER AVANI PRIETO Primary Care Provider [phone] Assessment No assessment recorded. Plan of Treatment [...] testing and management as warranted 2016 017 [facility], [address] [facility], [facility] [address], [place], [address], 8 05:01:13 Procedures None recorded. Surgeries None recorded. Imaging US, scrotum - 34yo M with firm mobile mass left scrotum x1 year. non-tender [address] [facility] (Imaging), [address], [place]CE[place] Akbar, [address], 9 10:29:06 Medication Orders trazodone 50 mg tablet 2018 019 [facility]FACE [id number], [address] [place], [address], 9 08:32:45 lorazepam 1 mg tablet 2018 019 INTERFACE [id number], [address] [facility] [place], [address], 9 08:32:45 trazodone 50 mg tablet 2018 019 INTERFACE [id number], [address] [place], [address], 9 16:10:31 hydroxyzin e HCl 25 mg tablet 2018 019 [email or web address] [id number], [address] [place], [address], 9 08:19:42 citalopram 20 mg tablet 2018 019 [email or web address] [id number], [address] [place], [address], 9 08:00:01 Patient TargetsNo targets recorded. Patient Instructions Encounter Date Encounter Id Patient Instructions Last Modified By Organization Details Last Modified Time 10/02/2017 [id number] Well Visit, Ages 18 to 65: Care [...] - continue citalopram - consider seeing a licensed investment sales assistant - regular dental and eye exams - flu vaccine today - follow up in 3-4 months - physical in 1 year [email or web address] Not available 10/02/2017 14:13:03 02/18/2018 [id number] After a discussi on of treatment options, [...] needed [email or web address] Not available 02/18/2018 10:10:14 10/30/2018 [id number] After a discussi on of treatment options, [...] to take with trazodone - schedule with licensed investment sales assistant - follow up at wellness visit in December [email or web address] Not available 10/30/2018 20:13:25 New medication w as discussed with patient including risks, benefits ,possible and expected side effects. Patient understands and is willing to begin medication as prescribed. [email or web address] Not available 10/30/2018 20:13:31 04/28/2019 [id number] Well Visit, Ages 18 to 65: Care [...] [facility], Encounter Date: 10/02/2017 Food And Beverage Coordinator/dietitian Refer ral for Obesity 33yo yo M with obesity and stress eating. wants to work on diet with fihari Referring Physician: Avani Prieto [facility], Encounter Date: 10/30/2018 Results Created Date Observation Date Name Description Value Unit Range Abnormal Flag Note LastModifiedBy Organization Detail LastModifiedTime 11/28/19 18 11/25/2017 polys omnog gogo No observ ation record ed. [facility] [address] [place], [address], 11/28/2017 15:17:28 03/01/20 18 polys omnog gogo No observ ation record ed. [facility] [address] [place] [address], [address], 03/02/2018 17:21:01 Result Notes None recorded. Problems Name Problem SNOMED Code Status Onset Date Resolution Date Notes Provider Name and Address Organization Details Recorded Time Eczema 30197522 Active since teens Avani Prieto NP [address] [place], [place] [address]J[place], [address], [facility] 5 10:31:30 Anxiety 89825540 Active treated since 2013, long history of panic attacks [place], [address], [facility] 5 10:49:48 Irritabl e bowel syndrome with diarrhea 043861144 Active 2015 Avani Prieto NP [address] [place], [address], [facility] 6 16:37:25 Obesity 959824066 Active 2015 Avani Prieto NP [address] [place], [place] [address]Jj, [place]CE[place], [address], [facility] 6 16:39:33 Sleep apnea 34199853 Active 2017 dx 11/2017 Avani Prieto NP [address] [place], [place] [address] [place], [address], [facility] 8 15:17:04 Obstruct timo sleep apnea syndrome 32159430 Completed 201702/18/2018 fit for CPAP 02/2018 Removal Reason: duplicate Avani Prieto NP [address] [place] [address] Jj Watson, [place]CEE, [address], [facility] 8 10:03:06 Insomnia 625978478 Active 2017 Avani Prieto NP [address] [place], [place] [address]Jj, [place], [address], [facility] 8 10:03:33 Problem Notes None recorded. Procedures Surgical History Date Name Laterality Status Provider Name and Address Organization Details Recorded Time 7 [place] Sleepiness Scale completed Avani Prieto NP [address] [place] [address], [phone], [facility] 10/02/2017 13:58:31 7 [place] Sleepiness Scale completed Avani Prieto NP [address] [place] [address], [address], [facility] 12/17/2016 12:10:15 6 [place] Sleepiness Scale completed Avani Prieto NP [address] [place] [address], [address], [facility] 03/26/2016 10:31:49 Imaging Results None recorded. Procedure Notes None recorded. Medical Equipment None Reported. Allergies Allergen ID Allergen Name Allergen Category Reaction Reaction Severity Criticality Documentation Date Start Date Code Code System Note Provider Name and Address Organization Details Recorded Time 890130 amoxicill in medicatio n rash Not available Not available 06/27/2015 723 [facility] 5 13:37:51 986429 erythromy gilbert medicatio n Not available Not available Not available 06/27/2015 4053 RxNorm [facility] 5 13:37:51 651875 Product containin g penicilli n (product) medicatio n Not available Not available Not available 06/27/2015 61898 8001 SNOMED [facility] 5 13:37:51 500692 egg extract food,medi cation Not available Not available Not available 06/27/2015 75371 15 RxNorm [facility] 5 13:37:51 Medications Name Sig Start Date [...] Updated DateTime 9 173.355 cm 37.3 kg/m2 699411. 72 g 80 /min 120 mm[Hg] 80 mm[Hg] Chelsy Mcknight [facility] 9 15:33:41 Date Recorded Body height Body mass index (BMI) Body weight Heart rate Systolic blood pressure Diastolic blood pressure Provider Name and Address Organization Details Last Updated DateTime 8 173.355 cm 36 kg/m2 444081. 38 g 76 /min 120 mm[Hg] 70 mm[Hg] Nelia cornell Julio César [facility] 8 09:41:23 Date Recorded Body height Body mass index (BMI) Body weight Heart rate Systolic blood pressure Diastolic blood pressure Provider Name and Address Organization Details Last Updated DateTime 9 173.355 cm 36.7 kg/m2 261454. 95 g 88 /min 110 mm[Hg] 70 mm[Hg] Ashley Victoria LPN [facility] 9 08:02:31 Date Recorded Body height Body mass index (BMI) Body weight Heart rate Systolic blood pressure Diastolic blood pressure Systolic blood pressure Diastolic blood pressure Systolic blood pressure Diastolic blood pressure Provider Name and Address Organization Details Last Updated DateTime 9 173.99 cm 36.1 kg/m2 754776. 46 g 64 /min 130 mm[Hg] 84 mm[Hg] 138 mm[Hg] 88 mm[Hg] 130 mm[Hg] 86 mm[Hg] Irineo López [facility] 9 11:55:02 Date Recorded Body height Body mass index (BMI) Body weight Heart rate Systolic blood pressure Diastolic blood pressure Provider Name and Address Organization Details Last Updated DateTime 7 173.355 cm 35.6 kg/m2 342359. 8 g 96 /min 118 mm[Hg] 74 mm[Hg] Danae Farooq user, RMA [facility] 7 13:41:58 Social History Question Answer Notes LastModified by Organizat ion Details LastModified Time Tobacco Smoking Status Former Smoker quit smoking 201207/31/16 Avani Prieto, MEGAN [address] [place] [address], [address], [facility] 06/27/2015 13:59:13 Do You Have An [...] Completed 2015 (journalism) Information not available 06/27/2015 When Did [...] 67 [email or web address] Not available 2018 11:40:37 Notes:no [place], prostate cancer does not know if family history of HTN or high cholesteral Medical History Condition Response eczema Y Anxiety Y Allergies Y Immunizations Vaccine Type Date Status Note Provider Nam lawanda and Address Organization Details Recorded Time Influenza, recombinant, quadrivalent, PF 10/02/2017 completed Not Available [facility] 0 02:22:34 Tdap 10/10/2014 completed Lima Medina LPN [facility] 06/27/2015 13:57:00 Past Encounters Encounter ID Performer Location Encounter Start Date Encounter Closed Date Diagnosis/Indication Diagnosis SNOMED-CT Code Diagnosis ICD10 Code Diagnosis Note [id number] Avani Prieto NP , [facility], OFFICE [address] [place] [address] 06/27/2015 13:27:42 06/27/2015 14:21:39 Adult health examination 326785349 see Risk Assessment and Lifestyle Change Counseling section above Counseling 329259201 Eczema 72274509 Anxiety 21196431 continu e to work on stress management . 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 Playing guitar, managing stress away from home Insomnia 714746050 G47.0 0 [id number] MEGAN Fu, [facility], OFFICE [address] [place] [address] 03/26/2016 09:50:36 03/26/2016 10:47:30 Anxiety 82795918 F41.9 treated since 2013, long history of panic attacks. 10 tabs of lorazepam over the last 6 months. pt alf goal is to manage without meds Allergic rhinitis 235330 04 J30.9 Snoring 26580005 R06.83 will work on weight loss, sleep hygiene, and managing allergies. no daytime sleepiness [id number] Jenn Alford MD , [facility], OFFICE [address] [place] [address] 07/31/2016 14:06:31 07/31/2016 14:35:19 Tick bite without infection 401881409 W57.XXXA Yesterday you were noted to have [...] both, and contact us if that occurs. [id number] Avani Prieto NP , [facility], OFFICE [address] [place] [address] 08/22/2016 15:51:46 08/22/2016 16:38:03 Adult health examination 370159284 Z00.00 see Risk Assessment and Lifestyle Change Counseling section above Counseling 474630949 Z71 .9 Irritable bowel syndrome with diarrhea 007698149 K58.0 will try eliminatio n diet Eczema 25532089 L30.9 stable. triggered by stress and cold weather Anxiety 81950800 F41.9 significan tly improved with job change. no recent panic attacks. doing well off citalopram Insomnia 067265990 G47.0 0 ok to continue trazodone. ok to taper off as needed. work on sleep hygiene Obesity 676657685 E66.9 work up to 45 minutes of exercise most days of the week. weight loss 1-2lb a month. follow up in 2-3 months to check in [id number] MEGAN Fu, [facility], OFFICE [address] [place] [address] 12/17/2016 11:46:38 12/17/2016 12:14:11 Obesity 920376219 E66.9 work up to 45 minutes of exercise most days of the week. weight loss 1-2lb a month. Insomnia 710670906 G47.0 0 Snoring 03134753 R06.83 snoring with daytime sleepiness . will work on weight loss and sleep hygiene. pt will consider sleep study. epworth scale 11 [id number] MEGAN Fu, [facility], OFFICE [address] [place] [phone] 09/03/2017 11:28:27 09/03/2017 12:01:09 Anxiety 11008423 F41.9 restart citalopram Insomnia 616461930 G47.0 0 lorazepam sparingly for anxiety. try low dose seroquel for sleep [id number] MEGAN Fu, [facility], OFFICE [address] [place] [id number] 10/02/2017 13:31:53 10/02/2017 14:10:45 Adult health examination 772601155 Z00.00 see Risk Assessment and Lifestyle Change Counseling section above Counseling 063078646 Z71 .9 Snoring 51620203 R06.83 snoring with daytime sleepiness . will work on weight loss and sleep hygiene. will get sleep study. epworth scale 9 Irritable bowel syndrome with diarrhea 420790335 K58.0 will work on diet and consider seeing a nutritioni st Obesity 972137459 E66.9 working on weight loss with regular exercise and diet changes Anxiety 29985142 F41.9 improved with citalopram 10mg daily. very occasional lorazepam as needed Active or passive immunization 476027254 Z23 Insomnia 781552057 G47.0 0 okay to try half tab of seroquel as needed for sleep. continue working on sleep hygiene with your therapist [id number] MEGAN Fu, [facility], OFFICE [address] [place] [address] 02/18/2018 09:33:27 02/18/2018 10:03:55 Anxiety 08207437 F41.9 not currently taking citalopram . lorazepam 3 times in the last couple weeks with significan t stress. he avoids taking this. plans to see his therapist every 1-2 weeks Sleep apnea 64337672 G47 .30 sleep med follow up next week to discuss CPAP Obesity 468860969 E66.9 working on weight loss with regular exercise and diet changes Irritable bowel syndrome with diarrhea 321769095 K58.0 stable. worse with stress Insomnia 141150750 G47.0 0 trazodone as needed for sleep OR okay to try half tab of seroquel as needed for sleep. not to take together. continue working on sleep hygiene with your therapist [id number] MEGAN Fu, [facility], OFFICE [address] [place] [address] 10/30/2018 15:11:41 11/02/2018 11:18:56 Anxiety 89183887 F41.9 worse lately. no clear trigger. will restart citalopram and get back to therapy, occasional lorazepam prn. will do trial of hydroxyzin e prn. not to take with lorazepam or trazodone Sleep apnea 92300801 G47 .30 CPAP Insomnia 884276009 G47.0 0 trazodone as needed for sleep OR hydroxyzin e 50mg. continue working on sleep hygiene. Obesity 438137079 E66.9 working on weight loss with regular exercise and diet changes. see nutritioni st with your fiance [id number] MEGAN Fu, [facility], OFFICE [address] [place] [id number] 03/03/2019 07:54:17 03/03/2019 08:32:53 Insomnia 786242638 G47.00 trazodone as needed for sleep. continue working on sleep hygiene. Anxiety 52193372 F41.9 worse lately. with school graduation and wedding coming up. he has started back with his therapist. we discussed lorazepam is not a good watermelon inspector medication discussed addiction potential and connection s with dementia. will use sparingly for now. note given for travel. follow up for wellness visit after your wedding and may consider maintenanc e med like buspar [id number] MEGAN Fu, [facility], OFFICE [address] [place] [address] 04/28/2019 10:54:02 04/28/2019 11:57:42 Adult health examination 843016695 Z00.00 see Risk Assessment and Lifestyle Change Counseling section above Counseling 793388950 Z71 .9 Depression screening 171 943420 Z13.89 depression screening tool administer ed, entered into emr, scored and discussed, time greater than 7.5 minutes. negative Testicular mass 23571320 N50.89 x1 year, no change. will get u/s Elevated blood-pressure reading without diagnosis of hypertension 314504927 R03.0 elevated in the office today. pt reports high anxiety related to almost getting into a car accident this morning. will work on stress reduction and relaxation . follow up in 1-2 weeks at [facility] Insomnia 774430146 G47.0 0 trazodone as needed for sleep. continue working on sleep hygiene. Sleep apnea 52782461 G47 .30 CPAP Anxiety 15208643 F41.9 get back in with therapist. very [...] Ramon Member ID Guarantor Name 10/02/2017 1 [facility] - DIRECT CONNECTORCARE TYPE III (HMO) Guille Young [id number] Guille Young 02/18/2018 1 [facility] - DIRECT CONNECTORCARE TYPE III (HMO) Guille Young [id number] Guille Young 10/30/2018 1 [facility] - [employer] - CIGNA (PPO) Guille Young [id number] Guille Young 03/03/2019 1 [facility] - [employer]LL[employer] - CIGNA (PPO) Guille Young [id number] Guille Young 04/28/2019 1 [facility] - [employer]LL[employer] - CIGNA (PPO) Guille Young [id number] Guille Young Notes Date Note Type Note [...] do a sleep study Avani Prieto NP [address] [place] [address], [place], [address], [facility] 10/02/2017 14:13:13 8 text/html 33yo M presents to follow up anxiety and sleep- 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 lack of time is hard. impacting his [...] he is on break from school Avani Prieto, RESIDENCE LIFE DIRECTOR [address] [place] [address], [address], [facility] 02/18/2018 10:10:46 9 text/html 33yo M presents for anxiety follow up- anxiety was worse now seems to be getting a little better- hasn't seen his therapist in a while but plans to go back- no big change in life. graduating in february- getting in March- cut out alcohol at [place] to try to get healthier- working out [...] one- stress eating. interested in seeing a licensed investment sales assistant - wants to restart citalopram. anxiety gets worse when restarting then feels blurry all before getting better in a week or so. does not decreased libido. wants to restart anyway. eventually wants to be off meds NUVIA- CPAP 5-6 nights a week Avani Prieto NP [address] [place], [address], [facility] 10/30/2018 20:13:52 9 text/html 34yo F presents for anxiety/depression follow up- he feels his mood has been good but his anxiety has been worse- just graduated and his wedding is in 10 days- [place] [facility]- then to [place] for Honeymoon. needs letter to okay his [...] no drug use Avani Prieto NP [address] [place], [address], [facility] 03/03/2019 13:17:59 9 text/html Physical Exam/MaleReported [...] lost job, looking for a job in [email or web address] and [place]- sleep apnea: cpap- noticed lump in scrotum a year ago. no pain, no change Avani Prieto NP [address] [place] [address], [address], [facility] 04/28/2019 14:49:19
== END 2025-03-23 15:41 | disposition home or self-care (01) ==
LOC: HO.HUSH 14:45
PROVIDERS: PCP Physician Assistant; Visit Provider Urology
DX: Z30.09 Encounter for other general counseling and advice on contraception (principal); Z30.2 Encounter for sterilization
CPT/HCPCS: 55250

== ENCOUNTER → 2025-03-23 14:44 | Outpatient (BNVA) | payer BC, SELFPAY | PROVIDERS: PCP Physician Assistant; Visit Provider Urology | DX: Z30.09 Encounter for other general counseling and advice on contraception (principal); F41.9 Anxiety disorder, unspecified; G47.00 Insomnia, unspecified; G47.33 Obstructive sleep apnea (adult) (pediatric); L72.3 Sebaceous cyst | CPT/HCPCS: 55250; J2003 ==

== ENCOUNTER 2025-03-28 08:09 | Outpatient (REF) | payer BC, SELFPAY ==
--- OUTSIDE RECORDS SUMMARY | 2025-03-28 08:19 | XMS_ITS | Data Portability ---
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 Surgeries None recorded. Imaging US, scrotum - 34yo M with firm mobile mass left scrotum x1 year. non-tender 2018 019 [facility] (Imaging), [address], KAYCEE Akbar, [address], 9 10:29:06 Medication Orders trazodone 50 mg tablet 2018 019 INTERFACE [id number], [address] [place], [address], 9 08:32:45 lorazepam 1 mg tablet 2018 019 INTERFACE [id number], [address] [facility] [place], [address], 9 08:32:45 trazodone 50 mg tablet 2018 019 INTERFACE [id number], [address] [place], [address], 9 16:10:31 hydroxyzin e HCl 25 mg tablet 2018 019 [email or web address] [id number], [address] [place], [address], 9 08:19:42 citalopram 20 mg tablet 2018 019 [email or web address] [id number], [address] [place], [address], 9 08:00:01 Patient TargetsNo targets recorded. Patient Instructions Encounter Date Encounter Id Patient Instructions Last Modified By Organization Details Last Modified Time 10/02/2017 [id number] Well Visit, Ages 18 to 65: Care [...] - continue citalopram - consider seeing a budget counselor - regular dental and eye exams - flu vaccine today - follow up in 3-4 months - physical in 1 year [email or web address] Not available 10/02/2017 14:13:03 02/18/2018 [id number] After a discussi on of treatment options, [...] needed [email or web address] Not available 02/18/2018 10:10:14 10/30/2018 [id number] After a discussi on of treatment options, [...] to take with trazodone - schedule with budget counselor - follow up at wellness visit in December hwzorek Not available 10/30/2018 20:13:25 New medication w as discussed with patient including risks, benefits ,possible and expected side effects. Patient understands and is willing to begin medication as prescribed. [email or web address] Not available 10/30/2018 20:13:31 04/28/2019 [id number] Well Visit, Ages 18 to 65: Care [...] [facility], Encounter Date: 10/02/2017 Inventory Administrator/dietitian Refer ral for Obesity 33yo yo M with obesity and stress eating. wants to work on diet with fihari Referring Physician: Avani Prieto [facility] Medicine, Encounter Date: 10/30/2018 Results Created Date Observation Date Name Description Value Unit Range Abnormal Flag Note LastModifiedBy Organization Detail LastModifiedTime 11/28/19 18 11/25/2017 polys omnog gogo No observ ation record ed. [facility] [address] [place], [address], 11/28/2017 15:17:28 03/01/20 18 polys omnog gogo No observ ation record ed. [facility] [address] [place] [address], [address], 03/02/2018 17:21:01 Result Notes None recorded. Problems Name Problem SNOMED Code Status Onset Date Resolution Date Notes Provider Name and Address Organization Details Recorded Time Eczema 23932774 Active since teens Avani Prieto NP [address] [place], [place] [address] [place], [address], [facility] [place] 5 10:31:30 Anxiety 58484145 Active treated since 2013, long history of panic attacks [place], [address], [facility] [place] 5 10:49:48 Irritabl e bowel syndrome with diarrhea 015038637 Active 2015 Avani Prieto NP [address] [facility] [place], [address], [facility] [place] 6 16:37:25 Obesity 466041944 Active 2015 Avani Prieto NP [address] [place], [place] [address]Jj, KAYCEE, [address], [facility] [place] 6 16:39:33 Sleep apnea 97977975 Active 2017 dx 11/2017 Avani Prieto NP [address] [place], [place] [address] [place], [address], [facility] [place] 8 15:17:04 Obstruct timo sleep apnea syndrome 87612355 Completed 201702/18/2018 fit for CPAP 02/2018 Removal Reason: duplicate Avani Prieto NP [address] [place] [address] Jj Watson, [place]CE[place], [address], [facility] [place] 8 10:03:06 Insomnia 552202901 Active 2017 Avani Prieto NP [address] [place], [place] [address]Jj, [place], [address], [facility] [place] 8 10:03:33 Problem Notes None recorded. Procedures Surgical History Date Name Laterality Status Provider Name and Address Organization Details Recorded Time 7 Scurry Sleepiness Scale completed Avani Prieto NP [address] [place] [address], [address], [facility] [place] 10/02/2017 13:58:31 7 Scurry Sleepiness Scale completed Avani Prieto NP [address] [place] [address], [address], [facility] [place] 12/17/2016 12:10:15 6 Scurry Sleepiness Scale completed Avani Prieto NP [address] [place] [address], [address], [facility] [place] 03/26/2016 10:31:49 Imaging Results None recorded. Procedure Notes None recorded. Medical Equipment None Reported. Allergies Allergen ID Allergen Name Allergen Category Reaction Reaction Severity Criticality Documentation Date Start Date Code Code System Note Provider Name and Address Organization Details Recorded Time 921500 amoxicill in medicatio n rash Not available Not available 06/27/2015 723 [facility] 5 13:37:51 149350 erythromy gilbert medicatio n Not available Not available Not available 06/27/2015 4053 RxNorm [facility] 5 13:37:51 049287 Product containin g penicilli n (product) medicatio n Not available Not available Not available 06/27/2015 22017 8001 SNOMED [facility] 5 13:37:51 622049 egg extract food,medi cation Not available Not available Not available 06/27/2015 08164 15 Rx[facility] [...] Updated DateTime 9 173.355 cm 37.3 kg/m2 109053. 72 g 80 /min 120 mm[Hg] 80 mm[Hg] Chelsy Mcknight [facility] 9 15:33:41 Date Recorded Body height Body mass index (BMI) Body weight Heart rate Systolic blood pressure Diastolic blood pressure Provider Name and Address Organization Details Last Updated DateTime 8 173.355 cm 36 kg/m2 753081. 38 g 76 /min 120 mm[Hg] 70 mm[Hg] Nelia cornell Julio César [facility] 8 09:41:23 Date Recorded Body height Body mass index (BMI) Body weight Heart rate Systolic blood pressure Diastolic blood pressure Provider Name and Address Organization Details Last Updated DateTime 9 173.355 cm 36.7 kg/m2 716137. 95 g 88 /min 110 mm[Hg] 70 mm[Hg] Ashley Victoria LPN [facility] 9 08:02:31 Date Recorded Body height Body mass index (BMI) Body weight Heart rate Systolic blood pressure Diastolic blood pressure Systolic blood pressure Diastolic blood pressure Systolic blood pressure Diastolic blood pressure Provider Name and Address Organization Details Last Updated DateTime 9 173.99 cm 36.1 kg/m2 901820. 46 g 64 /min 130 mm[Hg] 84 mm[Hg] 138 mm[Hg] 88 mm[Hg] 130 mm[Hg] 86 mm[Hg] Irineo López [facility] 9 11:55:02 Date Recorded Body height Body mass index (BMI) Body weight Heart rate Systolic blood pressure Diastolic blood pressure Provider Name and Address Organization Details Last Updated DateTime 7 173.355 cm 35.6 kg/m2 193189. 8 g 96 /min 118 mm[Hg] 74 mm[Hg] Danae Farooq user, RMA [facility] 7 13:41:58 Social History Question Answer Notes LastModified by Organizat ion Details LastModified Time Tobacco Smoking Status Former Smoker quit smoking 201207/31/16 Avani Prieto, MEGAN [address] [place] [address], [address], [facility] [place] 06/27/2015 13:59:13 Do You Have An Advance [...] 67 [email or web address] Not available 2018 11:40:37 Notes:no CT, prostate cancer does not know if family history of HTN or high cholesteral Medical History Condition Response eczema Y Anxiety Y Allergies Y Immunizations Vaccine Type Date Status Note Provider Nam lawanda and Address Organization Details Recorded Time Influenza, recombinant, quadrivalent, PF 10/02/2017 completed Not Available [facility] 0 02:22:34 Tdap 10/10/2014 completed Lima Medina LPN [facility] 06/27/2015 13:57:00 Past Encounters Encounter ID Performer Location Encounter Start Date Encounter Closed Date Diagnosis/Indication Diagnosis SNOMED-CT Code Diagnosis ICD10 Code Diagnosis Note [id number] Avani Prieto NP , [facility] [place], OFFICE [address] [place] [address] 06/27/2015 13:27:42 06/27/2015 14:21:39 Adult health examination 448159968 see Risk Assessment and Lifestyle Change Counseling section above Counseling [id number] Eczema 38334838 Anxiety 99040613 continu e to work on stress management . Playing [employer], managing stress away from home [id number] Avani Prieto NP , [facility] [place], OFFICE [address] [place] [address] 10/10/2015 09:59:04 10/10/2015 10:33:51 Anxiety 30175022 F41.9 continue to work on stress management . Playing guitar, managing stress away from home Insomnia 265527202 G47.0 0 [id number] MEGAN Fu, [facility] [place], OFFICE [address] [place] [address] 03/26/2016 09:50:36 03/26/2016 10:47:30 Anxiety 83844851 F41.9 treated since 2013, long history of panic attacks. 10 tabs of lorazepam over the last 6 months. pt senior living goal is to manage without meds Allergic rhinitis 334051 04 J30.9 Snoring 61925258 R06.83 will work on weight loss, sleep hygiene, and managing allergies. no daytime sleepiness [id number] Jenn Alford MD , [facility] [place], OFFICE [address] [place] [address] 07/31/2016 14:06:31 07/31/2016 14:35:19 Tick bite without infection 800580402 W57.XXXA Yesterday you were noted to have [...] both, and contact us if that occurs. [id number] Avani Prieto NP , [facility] [place], [address] [place] [address] 08/22/2016 15:51:46 08/22/2016 16:38:03 Adult health examination 580815259 Z00.00 see Risk Assessment and Lifestyle Change Counseling section above Counseling 317948383 Z71 .9 Irritable bowel syndrome with diarrhea 933647991 K58.0 will try eliminatio n diet Eczema 73570139 L30.9 stable. triggered by stress and cold weather Anxiety 34963992 F41.9 significan tly improved with job change. no recent panic attacks. doing well off citalopram Insomnia 067401048 G47.0 0 ok to continue trazodone. ok to taper off as needed. work on sleep hygiene Obesity 369852534 E66.9 work up to 45 minutes of exercise most days of the week. weight loss 1-2lb a month. follow up in 2-3 months to check in [id number] MEGAN Fu, [facility] [place], OFFICE [address] [place] [address] 12/17/2016 11:46:38 12/17/2016 12:14:11 Obesity 349220185 E66.9 work up to 45 minutes of exercise most days of the week. weight loss 1-2lb a month. Insomnia 818486097 G47.0 0 Snoring 70419707 R06.83 snoring with daytime sleepiness . will work on weight loss and sleep hygiene. pt will consider sleep study. epworth scale 11 [id number] MEGAN Fu, [facility] [place], OFFICE [address] [place] [address] 09/03/2017 11:28:27 09/03/2017 12:01:09 Anxiety 45182420 F41.9 restart citalopram Insomnia 447626081 G47.0 0 lorazepam sparingly for anxiety. try low dose seroquel for sleep [id number] MEGAN Fu, [facility] [place], OFFICE [address] [place] [address] 10/02/2017 13:31:53 10/02/2017 14:10:45 Adult health examination 651127804 Z00.00 see Risk Assessment and Lifestyle Change Counseling section above Counseling 342619088 Z71 .9 Snoring 54924041 R06.83 snoring with daytime sleepiness . will work on weight loss and sleep hygiene. will get sleep study. epworth scale 9 Irritable bowel syndrome with diarrhea 695940830 K58.0 will work on diet and consider seeing a nutritioni st Obesity 817080521 E66.9 working on weight loss with regular exercise and diet changes Anxiety 47950607 F41.9 improved with citalopram 10mg daily. very occasional lorazepam as needed Active or passive immunization 598580166 Z23 Insomnia 525326321 G47.0 0 okay to try half tab of seroquel as needed for sleep. continue working on sleep hygiene with your therapist [id number] MEGAN Fu, [facility] [place], [address]ICE [address] [place] [address] 02/18/2018 09:33:27 02/18/2018 10:03:55 Anxiety 66787421 F41.9 not currently taking citalopram . lorazepam 3 times in the last couple weeks with significan t stress. he avoids taking this. plans to see his therapist every 1-2 weeks Sleep apnea 41525686 G47 .30 sleep med follow up next week to discuss CPAP Obesity 838315416 E66.9 working on weight loss with regular exercise and diet changes Irritable bowel syndrome with diarrhea 912943721 K58.0 stable. worse with stress Insomnia 259214307 G47.0 0 trazodone as needed for sleep OR okay to try half tab of seroquel as needed for sleep. not to take together. continue working on sleep hygiene with your therapist [id number] MEGAN Fu, [facility] [place], [address] [place] [address] 10/30/2018 15:11:41 11/02/2018 11:18:56 Anxiety 80273123 F41.9 worse lately. no clear trigger. will restart citalopram and get back to therapy, occasional lorazepam prn. will do trial of hydroxyzin e prn. not to take with lorazepam or trazodone Sleep apnea 17667059 G47 .30 CPAP Insomnia 670423189 G47.0 0 trazodone as needed for sleep OR hydroxyzin e 50mg. continue working on sleep hygiene. Obesity 344756378 E66.9 working on weight loss with regular exercise and diet changes. see nutritioni st with your fiance [id number] MEGAN Fu, [facility] [place], OFFICE [address] [place] [address] 03/03/2019 07:54:17 03/03/2019 08:32:53 Insomnia 227927086 G47.00 trazodone as needed for sleep. continue working on sleep hygiene. Anxiety 59913031 F41.9 worse lately. with school graduation and wedding coming up. he has started back with his therapist. we discussed lorazepam is not a good terminal system operator medication discussed addiction potential and connection s with dementia. will use sparingly for now. note given for travel. follow up for wellness visit after your wedding and may consider maintenanc e med like buspar [id number] MEGAN Fu, [facility] [place], [address] [place] [address] 04/28/2019 10:54:02 04/28/2019 11:57:42 Adult health examination 449006329 Z00.00 see Risk Assessment and Lifestyle Change Counseling section above Counseling 850685695 Z71 .9 Depression screening 171 710560 Z13.89 depression screening tool administer ed, entered into emr, scored and discussed, time greater than 7.5 minutes. negative Testicular mass 40784092 N50.89 x1 year, no change. will get u/s Elevated blood-pressure reading without diagnosis of hypertension 998956720 R03.0 elevated in the office today. pt reports high anxiety related to almost getting into a car accident this morning. will work on stress reduction and relaxation . follow up in 1-2 weeks at [facility] clinic Insomnia 108640210 G47.0 0 trazodone as needed for sleep. continue working on sleep hygiene. Sleep apnea 87173967 G47 .30 CPAP Anxiety 01897210 F41.9 get back in with therapist. very occasional lorazepam as needed. discussed safety and goal to not use this med Health Concerns Section Related Observation LastModified by Organization Detai ls LastModified Time None Recorded Concern Status LastModified by Organization Details LastModified Time None Recorded Advance Directives Directive N: Payers Insurance Date Sequence Insurance Name Policy Number Policy Ramon Covered Member ID Ramon Member ID Guarantor Name 04/14/2018 1 [facility] TYPE III (O) Guille Young [id number] Guille Young 07/10/2018 1 [employer] Guille Young [id number] Guille Young 05/07/2019 1 [facility] Guille Young [id number] Guille Young 07/10/2018 1 [facility] (O) Guille Young [id number] Guille Young 04/14/2018 2 [facility] (O) Guille Young [id number] Guille Young 06/05/2018 1 *SELF PAY* Da fatimah Young Notes Date Note Type Note Provider [...] do a sleep study Avani Prieto NP [address] [place] [address], [address], [facility] 10/02/2017 14:13:13 8 text/html 33yo M presents to follow up anxiety and sleep- more anxiety lately r/t [employer], [employer] work, and recent engagement- school is calming [...] (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 lack of time is hard. impacting his [...] is on break from school Avani Prieto, MEGAN [address] [place], [address], [facility] [place] 02/18/2018 10:10:46 9 text/html 33yo M presents for anxiety follow up- anxiety was worse now seems to be getting a little better- hasn't seen his therapist in a while but plans to go back- no big change in life. graduating in february- getting in March- cut out alcohol at [employer] to try to get healthier- working out [...] one- stress eating. interested in seeing a budget counselor - wants to restart citalopram. anxiety gets worse when restarting then feels blurry all before getting better in a week or so. does not decreased libido. wants to restart anyway. eventually wants to be off meds NUVIA- CPAP 5-6 nights a week Avani Prieto NP [address] [place], [address], [facility] [place] 10/30/2018 20:13:52 9 text/html 34yo F presents for anxiety/depression follow up- he feels his mood has been good but his anxiety has been worse- just graduated and his wedding is in 10 days- [place] [facility]- then to [place] for Honeymoon. needs letter to okay his [...] no drug use Avani Prieto NP [address] [place], [address], [facility] [place] 03/03/2019 13:17:59 9 text/html Physical Exam/MaleReported bypatient.PHAPatient [...] lost job, looking for a job in [employer] and [employer]- sleep apnea: cpap- noticed lump in scrotum a year ago. no pain, no change Avani Prieto NP [address] [place] [address], [place], [address], [facility] [place] 04/28/2019 14:49:19
== END 2025-03-28 08:10 | disposition home or self-care (01) ==
LOC: HO.SH 08:09
PROVIDERS: Visit Provider Physician Assistant
DX: Z01.118 Encounter for examination of ears and hearing with other abnormal findings (principal); H90.42 Sensorineural hearing loss, unilateral, left ear, with unrestricted hearing on the contralateral side
CPT/HCPCS: 92557; 92567; 92588

== ENCOUNTER 2025-05-12 11:07 | Outpatient (AMB) | payer BC, SELFPAY ==
--- NOTE | 2025-05-12 11:09 | MHC.PC.OV ---
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 Instructions: Doctor's Order tirzepatide (weight loss) (Zepbound) 10 mg (0.5 mL) subcut QWEEK 4 weeks tramadol 50 mg PO Q8H PRN trazodone 100 mg (2 x 50 mg) PO BEDTIME 30 days triamcinolone acetonide 0.1% 1 appl topical BID 15 days Tobacco use date assessed: 05/12/25 Dental Screening Dental Screen Date: 05/12/25 Did you have a dental visit in the last 12 months?: No Did you have a dental problem in the last 6 months where you did not have access to dental care?: No Was dental information given to patient?: No HPI f/u Weight check HPI Details atient is a 40-year-old male here today for follow-up visit. Patient has a past medical history significant for generalized anxiety disorder, obesity and insomnia. Sensorineural hearing loss left ear: continues to have muffled hearing out of his left ear to the point where he needs to turn his head to be able to hear people talking to him. He is still awaiting ENT evaluation .. Generalized anxiety disorder: Patient continues on SSRI therapy and p.r.n. use of lorazepam. He is speaking with a mental health therapist though since losing weight on GLP 1 his mental health has been much better. He has drastically reduced his alcohol intake and has really helped him with his sleep and anxiety. He is using trazodone 50-100 mg at night with good effect. He has been reduced his benzodiazepine frequency of use to only as p.r.n.. He reports his panic attacks have reduced in frequency drastically. .. Obstructive sleep apnea: Uses CPAP machine nightly basis with decent affect. He continues on GLP 1 though has not noted any difference in his obstructive sleep apnea. .. Class 2 obesity: Patient continues on GLP 1 and has noted significant improvement in his health and has lost a significant amount of weight. He has lost more than 5% of his total body weight. He denies any significant side effects to the GLP 1 therapy although does report having insomnia a few days after injections. Starting weight 263 lb . Today's current weight 237 lb . He reports he has been more physically active as well in making dietary changes. He is interested in increasing to maximal dose 15 mg of the Zepbound. [facility], [facility] Surgical History No pertinent past surgical history Family History Father No problems noted. Mother Mental health disorder Sister Substance use disorder Mental health disorder Maternal Grandmother Mental health disorder Maternal Grandfather Mental health disorder Social History Housing: House Alcohol intake: current Alcohol intake frequency: a few times a week Patient Tobacco Use Status: Former Tobacco user e-Cigarette/Vaping Use: Never Used service: No Current occupational status: employed Current occupation: [id number] Cognitive needs: No Hearing needs: No Vision needs: No Questionnaire Thrive Questionnaire Date Thrive assessed: 05/12/25 I am a: Patient What is your living situation today?: I have a steady place to live Within the past 12 months, did the food you bought not last and you didn't have the money to get more?: Never true Within the past 12 months, did you worry whether your food would run out before you got money to buy more?: Never true Do you have trouble paying for medicines?: No Do you have trouble getting transportation to medical appointments?: No Do you have trouble paying your heating and electricity bill?: No Do you have trouble taking care of your child, family member or friend?: No Do you have trouble with day-to-day activities such as bathing, preparing meals, shopping, managing finances, etc.?: No Are you currently unemployed and looking for a job?: No Are you interested in more education?: No Please select the resources that you would like help with: None Currently or been in a relationship where the following occur: No concerns reported THRIVE Score: 0 ANGI-7 AMB Questionnaire ANGI-7 Date ANGI - 7 assessed: 05/12/25 Source: Developed by Drs. Ahmet Bañuelos, Parvin Poe, Burak Lizarraga and colleagues, with an educational ugo from [employer]. Review of Systems Const Denies headache(s) Eyes Denies loss of vision ENT Denies vertigo, Denies dizziness, Denies headache(s) and Denies sore throat Card Denies chest pain, Denies leg edema and Denies lightheadedness Resp Denies cough, Denies hemoptysis and Denies wheezing GI Denies abdominal pain, Denies melena, Denies constipation, Denies diarrhea and Denies vomiting Denies dysuria, Denies urinary frequency and Denies urinary urgency Musc Denies arthralgias, Denies joint swelling, Denies numbness and Denies tingling Neuro Denies Abnormal speech present, Denies behavioral changes, Denies vertigo, Denies dizziness, Denies headache(s), Denies loss of vision, Denies memory loss, Denies numbness and Denies tingling Psych Denies anxiety, Denies behavioral changes, Denies depression, Denies memory loss and Denies panic attacks Ronnie/Lymph Denies easy bleeding and Denies easy bruising Aller/Immun Denies wheezing Physical exam (Primary Care) Vital Signs: Last Vital Signs Temp 97.1 F 05/12/25 11:14 Pulse 85 05/12/25 11:14 BP 126/54 L 05/12/25 11:14 Pulse Ox 96 05/12/25 11:14 Oxygen Delivery Method Room Air 05/12/25 11:14 BMI result Body Mass Index 35.0 BMI Assessment/Plan discussion: High BMI High, discussed plan: lifestyle, weight reduction, dietary and physical activity Tobacco/Smoking Status: Tobacco use Status Tobacco use date assessed 05/12/25 05/12/25 11:18 Patient Tobacco Use Status Former Tobacco user 05/12/25 11:18 e-Cigarette/Vaping Use Never Used 05/12/25 11:18 Thrive Assessment: Date of Thrive Assessment Date Thrive assessed 05/12/25 05/12/25 11:18 Currently or been in a relationship where the following occur: No concerns reported Const General: healthy appearing, no acute distress, alert and awake Nutritional Appearance: well nourished Orientation/consciousness: oriented to person, oriented to place and oriented to time HENMT Ears: TM's normal bilaterally General nose exam: Normal nasal mucous membranes and turbinates present Eyes Conjunctivae: conjunctivae normal Sclerae: sclerae normal Pupils: Equal, round and reactive pupils present Neck Neck: Yes no lymphadenopathy and Yes no JVD Thyroid: Thyroid normal Carotids: no bruits Resp Effort & Inspection: normal respiratory effort and not tachypneic Auscultation: no crackles, no rales, no rhonchi and no wheezes Cardio Rate: regular rate Rhythm: regular rhythm Heart sounds: no murmurs and normal S1 and S2 GI Palpation (GI): Soft to palpation, nontender, no hepatomegaly and no splenomegaly Auscultation: normal bowel sounds Skin General skin exam: no rashes or lesions noted and dry skin Neuro General: oriented to person, oriented to place and oriented to time Cranial nerves: Yes Equal, round and reactive pupils present Speech: No Abnormal speech present Gait exam (Neuro): Normal gait present Motor exam (neuro): no tremor noted Extrem Right upper extremity: full ROM Left upper extremity: full ROM Right lower extremity: full ROM; no edema Left lower extremity: full ROM; no edema Psych Mental Status: mental status grossly normal Speech and movement: Normal speech and movement present Affect: normal affect Attitude: cooperative Thought process: Normal thought process present Coding Level of Care Code Est Pt Level 4 (24377) Diagnoses ANGI (generalized anxiety disorder) F41.1 Class 2 obesity E66.812 NUVIA (obstructive sleep apnea) G47.33 Primary insomnia F51.01 Insomnia type: primary Assessment & Plan Assessment & Plan (1) ANGI (generalized anxiety disorder): Code(s): F41.1 - Generalized anxiety disorder Category: Medical Plan: Patient reports his underlying anxiety is very well controlled with current dose of Celexa and p.r.n. use of his lorazepam 0.5 mg. He usually uses lorazepam at night to help him sleep though has not had any panic attacks in quite some time. He now is working in a different job to which he enjoys as well. (2) Class 2 obesity: Code(s): E66.812 - Obesity, class 2 Category: Medical Plan: Continues to lose weight on GLP 1. He would like to increase dose for added benefit of more weight loss. Has not noted any improvement in his obstructive sleep apnea. he also reports better eating habits and been more physically active. He has no particular intolerable side effects to GLP 1 dose and will like to continue up titrating. Will increase his dose to maximal dose 15 mg weekly and continue this dose for acute months. His goal weight is to be 205 lb (3) NUVIA (obstructive sleep apnea): Code(s): G47.33 - Obstructive sleep apnea (adult) (pediatric) Category: Medical Plan: Patient continues to use CPAP on a nightly basis. Fortunately has not been able to lose much weight. He wonders if his enlarged tonsils are the reason for his obstructive sleep apnea. He is interested in seeing ENT surgeon for evaluation. (4) Insomnia: Code(s): G47.00 - Insomnia, unspecified Category: Medical Qualifiers: Insomnia type: primary Qualified Code(s): F51.01 - Primary insomnia Plan: As per HPI has been experiencing insomnia and relates it to a side effect and she will be 1 therapy. He reports this is tolerable and does use lorazepam which is effective on inducing sleep. Medications: New tirzepatide (weight loss) (Zepbound) 15 mg (0.5 mL) subcut QWEEK 2 mL 3RF 4 weeks E66.812 - Obesity, class 2, G47.33 - Obstructive sleep apnea (adult) (pediatric) On Hold tirzepatide (weight loss) (Zepbound) Hold Comment: Doctor's Order 12.5 mg (0.5 mL) subcut QWEEK 2 mL 1RF 4 weeks E66.812 - Obesity, class 2, G47.33 - Obstructive sleep apnea (adult) (pediatric)
[2025-05-12 11:14] VITALS: BP 126/54; PULSE 85; TEMP 36.2; O2SAT 96; BMI 35.0
== END 2025-05-12 11:48 | disposition home or self-care (01) ==
LOC: HO.HMCH 11:08
PROVIDERS: PCP Physician Assistant; Visit Provider Physician Assistant
DX: G47.33 Obstructive sleep apnea (adult) (pediatric) (principal); F41.1 Generalized anxiety disorder; E66.812 Obesity, class 2; Z68.35 Body mass index [BMI] 35.0-35.9, adult; F51.01 Primary insomnia

== ENCOUNTER 2025-08-17 09:20 | Outpatient (AMB) | payer BC, SELFPAY ==
[2025-08-17 09:23] VITALS: BP 138/92; PULSE 95; TEMP 36.3; O2SAT 98; BMI 33.6
--- NOTE | 2025-08-17 09:23 | A.OFFPC_ITS ---
Vital Signs 08/17/25 09:23 Height 5 ft 9 in Weight 227 lb 8 oz BMI 33.6 BP 138/92 H Blood Pressure Location Lt brachial Position Sitting Pulse 95 Pulse Source Pulse Oximeter Temp 97.3 F Temp Source Temporal Artery Scan Pulse Oximetry (%) 98 Oxygen Delivery Method Room Air Intake Visit Reasons: Follow Up Allergies amoxicillin (AMOXICILLIN) Allergy (Unknown, Verified 08/17/25 09:29) HIVES azithromycin Allergy (Unknown, Verified 08/17/25 09:29) hives penicillin V Allergy (Unknown, Verified 08/17/25 09:29) hives Medication List - Last Reconciled 08/17/25 by Angelito Bustillo PA-C citalopram (Celexa) 20 mg PO DAILY 90 days lorazepam 0.5 mg PO DAILY PRN 14 days prednisone mg PO tirzepatide (weight loss) (Zepbound) 12.5 mg (0.5 mL) subcut QWEEK 4 weeks Held on 05/12/25. Instructions: Doctor's Order tirzepatide (weight loss) (Zepbound) 7.5 mg (0.5 mL) subcut QWEEK 4 weeks Held on 02/01/25. Instructions: Doctor's Order tirzepatide (weight loss) (Zepbound) 10 mg (0.5 mL) subcut QWEEK 4 weeks tirzepatide (weight loss) (Zepbound) 15 mg (0.5 mL) subcut QWEEK 4 weeks trazodone 100 mg (2 x 50 mg) PO BEDTIME 30 days triamcinolone acetonide 0.1% 1 appl topical BID 15 days Tobacco use date assessed: 08/17/25 Dental Screening Dental Screen Date: 08/17/25 Did you have a dental visit in the last 12 months?: No Did you have a dental problem in the last 6 months where you did not have access to dental care?: No Was dental information given to patient?: Patient has dentist HPI Follow Up HPI Details Patient is a 40-year-old male here today for follow-up visit. Patient has a past medical history significant for generalized anxiety disorder, obesity and insomnia. Sensorineural hearing loss left ear: continues to have muffled hearing out of his left ear to the point where he needs to turn his head to be able to hear people talking to him. He has followed up with the ENT specialist whom recommend getting an MRI to evaluate for intracranial/auditory canal pathology. Has been diagnosed with sensorineural hearing loss and a mild extent in the left. .. Generalized anxiety disorder: Patient does report his anxiety has been elevated as of late due to his new diagnosis of sensorineural hearing loss on the left. Patient continues on SSRI therapy and p.r.n. use of lorazepam. He is speaking with a mental health therapist though since losing weight on GLP 1 his mental health has been much better. He has drastically reduced his alcohol intake and has really helped him with his sleep and anxiety. He is using trazodone 50-100 mg at night with good effect. He has been reduced his benzodiazepine frequency of use to only as p.r.n.. He reports his panic attacks have reduced in frequency drastically. .. Obstructive sleep apnea: Uses CPAP machine nightly basis with decent affect. He continues on GLP 1 though has not noted any difference in his obstructive sleep apnea. .. Class 1 obesity: Patient continues on GLP 1 and has noted significant improvement in his health and has lost a significant amount of weight. He has lost more than 5% of his total body weight. He reports a significant increase in his energy, libido and overall well-being. He denies any significant side effects to the GLP 1 therapy although does report having insomnia a few days after injections. Starting weight 263 lb . Today's current weight 227 lb- BMI at 33 . He reports he has been more physically active as well in making dietary changes. He is interested in increasing to maximal dose 15 mg of the Zepbound [facility] Surgical History No pertinent past surgical history Family History Father No problems noted. Mother Mental health disorder Sister Substance use disorder Mental health disorder Maternal Grandmother Mental health disorder Maternal Grandfather Mental health disorder Social History Housing: House Alcohol intake: current Alcohol intake frequency: a few times a week Patient Tobacco Use Status: Former Tobacco user e-Cigarette/Vaping Use: Never Used service: No Current occupational status: employed Current occupation: [employer] Cognitive needs: No Hearing needs: No Vision needs: No Questionnaire PHQ-9 Over the last 2 weeks, how often have you been bothered by any of the following problems? 1. Little interest or pleasure in doing things: not at all 2. Feeling down, depressed, or hopeless: not at all 3. Trouble falling or staying asleep, or sleeping too much: several days 4. Feeling tired or having little energy: several days 5. Poor appetite or overeating: not at all 6. Feeling bad about yourself - or that you are a failure or have let yourself or your family down: not at all 7. Trouble concentrating on things, such as reading the newspaper or watching television: not at all 8. Moving or speaking so slowly that other people could have noticed. Or the opposite - being so fidgety or restless that you have been moving around a lot more than usual: not at all 9. Thoughts that you would be better off or of hurting yourself in some way: not at all Total score: 2 Depression Screening Interpretation: Negative Depression Screening Done: Yes Source: Developed by Drs. Ahmet Bañuelos, Parvin Poe, Burak Lizarraga and colleagues, with an educational ugo from [employer]. Thrive Questionnaire Date Thrive assessed: 03/08/25 I am a: Patient What is your living situation today?: I have a steady place to live Within the past 12 months, did the food you bought not last and you didn't have the money to get more?: Never true Within the past 12 months, did you worry whether your food would run out before you got money to buy more?: Never true Do you have trouble paying for medicines?: No Do you have trouble getting transportation to medical appointments?: No Do you have trouble paying your heating and electricity bill?: No Do you have trouble taking care of your child, family member or friend?: No Do you have trouble with day-to-day activities such as bathing, preparing meals, shopping, managing finances, etc.?: No Are you currently unemployed and looking for a job?: No Are you interested in more education?: No Please select the resources that you would like help with: None Currently or been in a relationship where the following occur: No concerns reported THRIVE Score: 0 AUDIT C Alcohol Use Questionnaire (AUDIT-C) 1. How often do you have a drink containing alcohol?: Monthly or less 2. How many drinks containing alcohol do you have on a typical day when you are drinking?: 3 or 4 3. How often do you have six or more drinks on one occasion?: Less than monthly Total Score: 3 ANGI-7 AMB Questionnaire ANGI-7 Date ANGI - 7 assessed: 05/12/25 Feeling nervous, anxious, or on edge: 1 = Several days Not being able to stop or control worryin = Not at all Worrying too much about different things: 1 = Several days Trouble relaxin = More than half the days Being so restless that it is hard to sit still: 1 = Several days Becoming easily annoyed or irritable: 3 = Nearly every day Feeling afraid as if something awful might happen: 0 = Not at all Total ANGI-7 score (0-4 normal; 5-9 mild; 10-14 moderate; 15-21 severe): 8 Source: Developed by Drs. Ahmet Bañuelos, Parvin Poe, Burak Lizarraga and colleagues, with an educational ugo from [employer]. Review of Systems Const Denies headache(s) Eyes Denies loss of vision ENT Denies vertigo, Denies dizziness, Denies headache(s) and Denies sore throat Card Denies chest pain, Denies leg edema and Denies lightheadedness Resp Denies cough, Denies hemoptysis and Denies wheezing GI Denies abdominal pain, Denies melena, Denies constipation, Denies diarrhea and Denies vomiting Denies dysuria, Denies urinary frequency and Denies urinary urgency Musc Denies arthralgias, Denies joint swelling, Denies numbness and Denies tingling Neuro Denies Abnormal speech present, Denies behavioral changes, Denies vertigo, Denies dizziness, Denies headache(s), Denies loss of vision, Denies memory loss, Denies numbness and Denies tingling Psych Denies anxiety, Denies behavioral changes, Denies depression, Denies memory loss and Denies panic attacks Ronnie/Lymph Denies easy bleeding and Denies easy bruising Aller/Immun Denies wheezing Physical exam (Primary Care) Vital Signs: Last Vital Signs Temp 97.3 F 08/17/25 09:23 Pulse 95 11/05/25 09:23 BP 138/92 H 08/17/25 09:23 Pulse Ox 98 08/17/25 09:23 Oxygen Delivery Method Room Air 08/17/25 09:23 BMI result Body Mass Index 33.6 BMI Assessment/Plan discussion: High BMI High, discussed plan: lifestyle, weight reduction, dietary and physical activity Tobacco/Smoking Status: Tobacco use Status Tobacco use date assessed 08/17/25 08/17/25 09:27 Patient Tobacco Use Status Former Tobacco user 08/17/25 09:27 e-Cigarette/Vaping Use Never Used 08/17/25 09:27 PHQ-9: PHQ-9 Score PHQ-9: Total score 2 08/17/25 09:27 Depression Screening Interpretation: Negative Thrive Assessment: Date of Thrive Assessment Date Thrive assessed 03/08/25 08/17/25 09:27 Currently or been in a relationship where the following occur: No concerns reported Const Other: Obese-weight loss noted General: healthy appearing, no acute distress, alert and awake Nutritional Appearance: well nourished Orientation/consciousness: oriented to person, oriented to place and oriented to time HENMT Ears: TM's normal bilaterally General nose exam: Normal nasal mucous membranes and turbinates present Eyes Conjunctivae: conjunctivae normal Sclerae: sclerae normal Pupils: Equal, round and reactive pupils present Neck Neck: Yes no lymphadenopathy and Yes no JVD Thyroid: Thyroid normal Carotids: no bruits Resp Effort & Inspection: normal respiratory effort and not tachypneic Auscultation: no crackles, no rales, no rhonchi and no wheezes Cardio Rate: regular rate Rhythm: regular rhythm Heart sounds: no murmurs and normal S1 and S2 GI Palpation (GI): Soft to palpation, nontender, no hepatomegaly and no splenomegaly Auscultation: normal bowel sounds Skin General skin exam: no rashes or lesions noted and dry skin Neuro General: oriented to person, oriented to place and oriented to time Cranial nerves: Yes Equal, round and reactive pupils present Speech: No Abnormal speech present Gait exam (Neuro): Normal gait present Motor exam (neuro): no tremor noted Extrem Right upper extremity: full ROM Left upper extremity: full ROM Right lower extremity: full ROM; no edema Left lower extremity: full ROM; no edema Psych Mental Status: mental status grossly normal Speech and movement: Normal speech and movement present Affect: normal affect Attitude: cooperative Thought process: Normal thought process present Coding Level of Care Code Est Pt Level 4 (43159) Diagnoses ANGI (generalized anxiety disorder) F41.1 Class 2 obesity E66.812 NUVIA (obstructive sleep apnea) G47.33 Primary insomnia F51.01 Insomnia type: primary Sensorineural hearing loss (SNHL) of left ear, unspecified hearing status on contralateral side H90.5 Laterality: left Contralateral hearing status: unspecified Low HDL (under 40) E78.6 Assessment & Plan Assessment & Plan (1) ANGI (generalized anxiety disorder): Code(s): F41.1 - Generalized anxiety disorder Category: Medical Plan: Patient reports his underlying anxiety is very well controlled with current dose of Celexa and p.r.n. use of his lorazepam 0.5 mg. He has had a bit of increased anxiety as of late due to his left ear issue. Getting an MRI to evaluate for intracranial pathology.> He usually uses lorazepam at night to help him sleep though has not had any panic attacks in quite some time. He now is working in a different job to which he enjoys as well. (2) Class 2 obesity: Code(s): E66.812 - Obesity, class 2 Category: Medical Plan: Continues to lose weight on GLP 1. He would like to increase dose for added benefit of more weight loss. Has not noted any improvement in his obstructive sleep apnea. he also reports better eating habits and been more physically active. He has no particular intolerable side effects to GLP 1 dose and will like to continue up titrating. He continues on maximal dose of Zepbound at this time.. His goal weight is to be 205 lb (3) NUVIA (obstructive sleep apnea): Code(s): G47.33 - Obstructive sleep apnea (adult) (pediatric) Category: Medical Plan: Patient continues to use CPAP on a nightly basis. Fortunately has not been able to lose much weight. He wonders if his enlarged tonsils are the reason for his obstructive sleep apnea. (4) Insomnia: Code(s): G47.00 - Insomnia, unspecified Category: Medical Qualifiers: Insomnia type: primary Qualified Code(s): F51.01 - Primary insomnia Plan: As per HPI has been experiencing insomnia and relates it to a side effect and she will be 1 therapy. He reports this is tolerable and does use lorazepam which is effective on inducing sleep. (5) SNHL (sensorineural hearing loss): Code(s): H90.5 - Unspecified sensorineural hearing loss Category: Medical Qualifiers: Laterality: left Contralateral hearing status: unspecified Qualified Code(s): H90.5 - Unspecified sensorineural hearing loss Plan: Has been noted to have left-sided sensorineural hearing loss, he has been evaluated by ENT specialist in will be getting a brain MRI to evaluate for intracranial pathology. (6) Low HDL (under 40): Code(s): E78.6 - Lipoprotein deficiency Category: Medical Plan: Has noted to have a low HDL , will continue with lifestyle and dietary modifications. Will recheck fasting lipid panel next year. Goal HDL to be above 40 Orders: Orders Comprehensive [place]. Panel Fast Today Z13.1 - Encounter for screening for diabetes mellitus Lipid Panel Today E78.6 - Lipoprotein deficiency Complete Blood Count no Diff Today G47.33 - Obstructive sleep apnea (adult) (pediatric) Medications: Refilled lorazepam 0.5 mg PO DAILY PRN 14 tabs 1RF anxiety 14 days F41.1 - Generalized anxiety disorder
== END 2025-08-17 09:48 | disposition home or self-care (01) ==
LOC: HO.HMCH 09:21
PROVIDERS: PCP Physician Assistant; Visit Provider Physician Assistant
DX: G47.33 Obstructive sleep apnea (adult) (pediatric) (principal); F41.1 Generalized anxiety disorder; E66.812 Obesity, class 2; Z68.33 Body mass index [BMI] 33.0-33.9, adult; F51.01 Primary insomnia; H90.5 Unspecified sensorineural hearing loss; E78.6 Lipoprotein deficiency